=== PATIENT | female | born 1955 | race Caucasian/White ===

== ENCOUNTER 2017-11-27 11:18 | Emergency (ER) | payer OTHER ==
[~2017-11-27] VITALS: Ht 167.6 cm; Wt 62.6 kg
[~2017-11-27 11:18] MED LIST: METHPOW77
[2017-11-27 11:24] VITALS: BP 134/87
[2017-11-27] MEDS ORDERED: KETOROLAC TROMETH 60MG/2ML VIAL IM ONE (12:00)
== END 2017-11-27 13:12 | disposition home or self-care (01) ==
LOC: ER 11:18
DX: M50.30 Other cervical disc degeneration, unspecified cervical region (principal); M19.90 Unspecified osteoarthritis, unspecified site; E07.89 Other specified disorders of thyroid; Z88.6 Allergy status to analgesic agent
CPT/HCPCS: 72040; 96372; 99284; J1885

== ENCOUNTER 2019-04-08 14:08 | Emergency (ER) | payer OTHER ==
[~2019-04-08] VITALS: Ht 167.6 cm; Wt 59.0 kg
[2019-04-08 15:07] VITALS: BP 118/76
[2019-04-08] MEDS ORDERED: KETOROLAC TROMETH 60MG/2ML VIAL IM ONE (15:45)
[2019-04-08] MEDS ORDERED: methylPREDNISolone SOD SUCC 125 MG/2 ML VL IM ONE (15:45)
== END 2019-04-08 16:25 | disposition home or self-care (01) ==
LOC: ER 14:08
DX: M25.531 Pain in right wrist (principal); M79.671 Pain in right foot; M06.9 Rheumatoid arthritis, unspecified; Z88.6 Allergy status to analgesic agent
CPT/HCPCS: 96372; 99283; J1885; J2930

== ENCOUNTER 2020-10-28 21:26 | Emergency (ER) | payer OTHER ==
[2020-10-28 22:34] LABS: Basophils # (auto) 0.1 10 ^3/uL (0-0.2); Basophils % (auto) 1.4 % (0.0-2.0); Eosinophils # (auto) 0.1 10 ^3/uL (0-0.8); Eosinophils % (auto) 2.5 % (0.0-7.0); Hematocrit 38.9 % (36.0-46.0); Hemoglobin 13.2 g/dL (12.2-16.2); Lymphocytes # (auto) 2.1 10 ^3/uL (0.4-5.4); Lymphocytes % (auto) 36.3 % (10.0-50.0); Mean Corpuscular Hemoglobin 32.4 pg (28.0-32.0); Mean Corpuscular Hgb Conc. 33.9 g/dL (32.0-36.0); Mean Corpuscular Volume 95.5 fL (80.0-100.0); Monocytes % (auto) 16.7 % (0.0-12.0); Neutrophils # (auto) 2.5 10 ^3/uL (1.6-8.6); Neutrophils % (auto) 43.1 % (37.0-80.0); Nucleated Red Blood Cells % 0.1 %; Red Blood Cells 4.08 10^6/uL (4.0-5.20); Red Cell Distribution Width 15.1 % (11.8-14.3); White Blood Cell 5.8 10^3/uL (4.4-10.8)
[2020-10-28 22:54] LABS: Albumin 3.1 g/dL (3.4-5.0); Calcium 10.1 mg/dL (8.5-10.1); Potassium 4.4 mmol/L (3.5-5.1)
[2020-10-28 22:57] LABS: BUN/Creatinine Ratio 20.8; Bilirubin, Total 0.4 mg/dL (0.2-1.0); Total Protein 6.4 g/dL (6.4-8.2)
[2020-10-28] MEDS ORDERED: HYDROcodone-ACET 5/325MG TAB PO ONE (23:00)
[2020-10-28] MEDS ORDERED: ONDANSETRON ODT 4 MG TAB PO ONE (23:00)
[2020-10-29 00:24] LABS: Urine Bacteria NONE SEEN /hpf (None Seen); Urine Blood 3+ /uL (Negative); Urine Specific Gravity 1.014 (1.001-1.035); Urine WBC 102 /hpf (0 - 5)
[2020-10-29] MEDS ORDERED: CEPHALEXIN 250 MG CAP PO ONE (01:00)
[2020-10-29 03:15] VITALS: BP 112/66
== END 2020-10-29 04:15 | disposition home or self-care (01) ==
LOC: ER 21:28
DX: N13.2 Hydronephrosis with renal and ureteral calculous obstruction (principal); Z88.5 Allergy status to narcotic agent; Z79.899 Other long term (current) drug therapy; Z90.89 Acquired absence of other organs
CPT/HCPCS: 36415; 74176; 80053; 81001; 82150; 83690; 85025; 99284; Q0162

== ENCOUNTER → 2020-10-29 | Emergency (ER) | payer OTHER | END | disposition left against medical advice (07) | LOC: ER 14:14 | DX: M54.9 Dorsalgia, unspecified (principal); Z53.21 Procedure and treatment not carried out due to patient leaving prior to being seen by health care provider ==

== ENCOUNTER 2021-07-21 11:27 | Inpatient (IN) | payer OTHER, MEDICARE ==
[~2021-07-21] VITALS: Ht 167.6 cm; Wt 60.3 kg
[2021-07-21 13:49] LABS: Basophils # (auto) 0.1 10 ^3/uL (0-0.2); Basophils % (auto) 0.7 % (0.0-2.0); Eosinophils # (auto) 0 10 ^3/uL (0-0.8); Eosinophils % (auto) 0.6 % (0.0-7.0); Hematocrit 37.9 % (36.0-46.0); Lymphocytes # (auto) 1.4 10 ^3/uL (0.4-5.4); Mean Corpuscular Hemoglobin 33.9 pg (28.0-32.0); Mean Corpuscular Hgb Conc. 34.4 g/dL (32.0-36.0); Mean Corpuscular Volume 98.7 fL (80.0-100.0); Monocytes # (auto) 0.8 10 ^3/uL (0-1.3); Monocytes % (auto) 10.8 % (0.0-12.0); Neutrophils # (auto) 5.4 10 ^3/uL (1.6-8.6); Neutrophils % (auto) 69.9 % (37.0-80.0); Nucleated Red Blood Cells % 0.2 %; Red Blood Cells 3.84 10^6/uL (4.0-5.20); Red Cell Distribution Width 15.9 % (11.8-14.3); White Blood Cell 7.8 10^3/uL (4.4-10.8)
[2021-07-21 14:02] LABS: Albumin 3.4 g/dL (3.4-5.0); Calcium 10.2 mg/dL (8.5-10.1); Magnesium 2.2 mg/dL (1.6-2.6); Potassium 4.5 mmol/L (3.5-5.1)
[2021-07-21 14:04] LABS: INR 1.04 (0.9-1.15); Partial Thromboplastin Time 24.4 sec (23.6-33.0)
[2021-07-21 14:07] LABS: Bilirubin, Total 0.7 mg/dL (0.2-1.0); Total Protein 6.4 g/dL (6.4-8.2)
[2021-07-21] MEDS ORDERED: IOHEXOL 350 MG/ML 100ML IJ ONE (20:54)
[2021-07-21] MEDS ORDERED: ENOXAPARIN SOD 100 MG/1 ML SYRINGE SC ONE (22:15)
[2021-07-21] MEDS ORDERED: ONDANSETRON HCL 4 MG/2 ML VIAL IV PRN (22:45)
[2021-07-21] MEDS ORDERED: TEMAZEPAM 15 MG CAP PO PRN (22:45)
[2021-07-21] MEDS ORDERED: NITROGLYCERIN 0.4 MG SL TAB SL PRN (22:45)
[2021-07-21] MEDS ORDERED: ACETAMINOPHEN 325 MG TAB PO PRN (22:45)
[2021-07-21] MEDS ORDERED: TOFA5TAB OR (22:54)
[2021-07-21] MEDS ORDERED: CHOL20007 PO (22:54)
[2021-07-21] MEDS ORDERED: METH2.5T PO (22:54)
[2021-07-21] MEDS ORDERED: FOLI5CAP PO (22:54)
[2021-07-21] MEDS ORDERED: [UNRECOGNIZED DRUG - CODE] PO (22:54)
[2021-07-21] MEDS ORDERED: LEVO50TA7 PO (22:54)
[2021-07-21] MEDS ORDERED: MILN50TA PO (22:54)
[2021-07-21] MEDS ORDERED: HYDR50CA PO (22:54)
[2021-07-21] MEDS ORDERED: HYDR-4902 PO (22:54)
[2021-07-22 05:41] LABS: Basophils # (auto) 0.1 10 ^3/uL (0-0.2); Basophils % (auto) 0.8 % (0.0-2.0); Eosinophils # (auto) 0.1 10 ^3/uL (0-0.8); Eosinophils % (auto) 0.7 % (0.0-7.0); Hematocrit 37.5 % (36.0-46.0); Hemoglobin 12.7 g/dL (12.2-16.2); Lymphocytes # (auto) 1.1 10 ^3/uL (0.4-5.4); Lymphocytes % (auto) 12.9 % (10.0-50.0); Mean Corpuscular Hemoglobin 33.2 pg (28.0-32.0); Mean Corpuscular Hgb Conc. 33.9 g/dL (32.0-36.0); Mean Corpuscular Volume 98.1 fL (80.0-100.0); Monocytes # (auto) 1.1 10 ^3/uL (0-1.3); Monocytes % (auto) 13.5 % (0.0-12.0); Neutrophils # (auto) 6.1 10 ^3/uL (1.6-8.6); Neutrophils % (auto) 72.1 % (37.0-80.0); Red Blood Cells 3.82 10^6/uL (4.0-5.20); Red Cell Distribution Width 15.8 % (11.8-14.3); White Blood Cell 8.5 10^3/uL (4.4-10.8)
[2021-07-22 06:30] LABS: Calcium 9.9 mg/dL (8.5-10.1); Potassium 4.6 mmol/L (3.5-5.1)
[2021-07-22] MEDS ORDERED: LEVOTHYROXINE SODIUM 25 MCG TAB ONE (08:18)
[2021-07-22] MEDS: LEVOTHYROXINE SODIUM 50 MCG TAB PO SCH (08:19)
[2021-07-22 09:00] VITALS: BP 119/83
[2021-07-22] MEDS: ENOXAPARIN SOD 100 MG/1 ML SYRINGE SC SCH ×2 (12:29→22:03)
[2021-07-22 13:00] VITALS: BP 151/85
[2021-07-22] MEDS ORDERED: hydrOXYzine 25 MG TAB or CAP PO PRN (16:15)
[2021-07-22 17:06] VITALS: BP 152/85
[2021-07-22] MEDS: HYDROcodone-ACET 5/325MG TAB PO PRN (17:26)
[2021-07-22 23:01] VITALS: BP 140/80
[2021-07-23 05:32] VITALS: BP 125/74
[2021-07-23 05:43] LABS: Basophils # (auto) 0.1 10 ^3/uL (0-0.2); Basophils % (auto) 0.8 % (0.0-2.0); Eosinophils # (auto) 0.1 10 ^3/uL (0-0.8); Hematocrit 35.7 % (36.0-46.0); Hemoglobin 12.3 g/dL (12.2-16.2); Lymphocytes # (auto) 1.2 10 ^3/uL (0.4-5.4); Lymphocytes % (auto) 17.4 % (10.0-50.0); Mean Corpuscular Hemoglobin 33.8 pg (28.0-32.0); Mean Corpuscular Hgb Conc. 34.4 g/dL (32.0-36.0); Mean Corpuscular Volume 98.1 fL (80.0-100.0); Monocytes # (auto) 1.1 10 ^3/uL (0-1.3); Monocytes % (auto) 15.5 % (0.0-12.0); Neutrophils # (auto) 4.5 10 ^3/uL (1.6-8.6); Neutrophils % (auto) 65.3 % (37.0-80.0); Nucleated Red Blood Cells % 0.1 %; Red Blood Cells 3.63 10^6/uL (4.0-5.20); Red Cell Distribution Width 16.1 % (11.8-14.3); White Blood Cell 6.8 10^3/uL (4.4-10.8)
[2021-07-23] MEDS: LEVOTHYROXINE SODIUM 50 MCG TAB PO SCH (05:48)
[2021-07-23 05:56] LABS: BUN/Creatinine Ratio 16.5; Potassium 4.4 mmol/L (3.5-5.1)
[2021-07-23 06:01] LABS: Calcium 10.1 mg/dL (8.5-10.1)
[2021-07-23] MEDS ORDERED: APIX5TAB PO (09:38)
[2021-07-23] MEDS ORDERED: FOLIC ACID 1 MG TAB PO SCH (10:00)
[2021-07-23] MEDS ORDERED: CHOLECALCIFEROL (VITD3) 2,000 UNIT CAP/TAB PO SCH (10:00)
[2021-07-23] MEDS: ENOXAPARIN SOD 100 MG/1 ML SYRINGE SC SCH (11:09)
[2021-07-23] MEDS: HYDROcodone-ACET 5/325MG TAB PO PRN (11:15)
== END 2021-07-23 13:10 | disposition home or self-care (01) | DRG 176 ==
LOC: ER 11:29 → TELE 22:37 → TELE-CENTR 07-22 08:34
PROVIDERS: ADMIT Nurse Practitioner; ATTEND Internal Medicine Pulmonary Disease
DX: I26.99 Other pulmonary embolism without acute cor pulmonale (principal); I82.431 Acute embolism and thrombosis of right popliteal vein; J98.11 Atelectasis; N20.0 Calculus of kidney; M19.90 Unspecified osteoarthritis, unspecified site; R06.03 Acute respiratory distress; Z20.822 Contact with and (suspected) exposure to COVID-19; Z87.442 Personal history of urinary calculi; Z88.5 Allergy status to narcotic agent
CPT/HCPCS: 36415; 71046; 71275; 80048; 80053; 83735; 83880; 84484; 85025; 85379; 85610; 85730; 93306; 93970; 96372; G0378

== ENCOUNTER 2021-11-05 13:39 | Emergency (ER) | payer OTHER, MEDICARE ==
[~2021-11-05] VITALS: Ht 162.6 cm; Wt 58.3 kg
[~2021-11-05 13:39] MED LIST changes: +APIX5TAB PO; +CHOL20007 PO; +FOLI5CAP PO; +HYDR-4902 PO; +HYDR50CA PO; +LEVO50TA7 PO; +METH2.5T PO; +MILN50TA PO; +TOFA5TAB OR; +[UNRECOGNIZED DRUG - CODE] PO
[2021-11-05 17:46] VITALS: BP 112/90
[2021-11-05] MEDS ORDERED: TRIA0.02 TOP (18:54)
== END 2021-11-05 19:06 | disposition home or self-care (01) ==
LOC: ER 13:39
DX: S50.812A Abrasion of left forearm, initial encounter (principal); S50.811A Abrasion of right forearm, initial encounter; R21 Rash and other nonspecific skin eruption; M19.90 Unspecified osteoarthritis, unspecified site; Z90.89 Acquired absence of other organs; Z88.6 Allergy status to analgesic agent; Z79.899 Other long term (current) drug therapy; X58.XXXA Exposure to other specified factors, initial encounter; Y93.89 Activity, other specified; Y92.89 Other specified places as the place of occurrence of the external cause; Y99.8 Other external cause status

== ENCOUNTER 2022-11-24 15:58 | Emergency (ER) | payer OTHER, MEDICARE ==
[~2022-11-24] VITALS: Ht 167.6 cm; Wt 55.7 kg
[~2022-11-24 15:58] MED LIST changes: -APIX5TAB PO; +CLIN-203 PO; -METHPOW77; +SACC250C PO; -TOFA5TAB OR; +TOFA5TAB PO; +TRAM200T36 PO; +WARF-111 PO; -[UNRECOGNIZED DRUG - CODE] PO
[2022-11-24 18:34] VITALS: BP 138/84; PULSE 99; RESP 16; TEMP 98.1; O2SAT 97
[2022-11-24] MEDS ORDERED: CEPH500C PO (18:40)
[2022-11-24] MEDS ORDERED: CLIN300C70 PO (18:40)
== END 2022-11-24 18:52 | disposition home or self-care (01) ==
LOC: ER 15:58
DX: L03.114 Cellulitis of left upper limb (principal); L03.113 Cellulitis of right upper limb; L03.116 Cellulitis of left lower limb; M19.90 Unspecified osteoarthritis, unspecified site; Z87.442 Personal history of urinary calculi; Z90.89 Acquired absence of other organs; Z88.6 Allergy status to analgesic agent; Z79.1 Long term (current) use of non-steroidal anti-inflammatories (NSAID); Z79.899 Other long term (current) drug therapy

== ENCOUNTER 2024-05-18 00:53 | Emergency (ER) | payer MEDICARE ==
[~2024-05-18] VITALS: Ht 167.6 cm; Wt 56.8 kg
[~2024-05-18 00:53] MED LIST changes: +CEPH500C PO; +CLIN1CAP70 PO
[2024-05-18 02:16] LABS: Urine Bacteria None Seen /hpf (None Seen)
[2024-05-18 02:48] LABS: Urine Blood Negative /uL (Negative); Urine Clarity Clear (Clear); Urine Color Yellow (Yellow); Urine Protein, UAD Negative (Negative); Urine Specific Gravity 1.018 (1.001-1.035); Urine Squamous Epithelial Cell FEW /hpf (<5); Urine Urobilinogen Normal (Negative); Urine WBC 8 /HPF (0-5)
--- NOTE | 2024-05-18 02:50 | DVH ---
Exam: CT CT AB PEL WO CON-NO ORAL OR IV History: Flank pain Comparison Study: None available at time of dictation. TECHNIQUE: Multidetector CT of the abdomen was performed from lung bases to pubic symphysis. Imaging was performed without IV contrast. Axial, coronal and sagittal multiplanar reformats were obtained fr om the axial data set by the technologist. Radiation optimization: All CT scans at this facility use at least one of these dose optimization luly hniques: automated exposure control mA and/or kV adjustment per patient size (includes targeted exam s where dose is matched to clinical indication) or iterative reconstruction. Radiation Dose Information: CT Dose: CTDI volume is 5.36 mGy. Dose-length product is 258.01 mGy*cm FINDINGS: Evaluation of solid organs is limited due to lack of intravenous contrast use. Findings: Imaged portions of the lung bases The liver, gallbladder, spleen, pancreas and adrenal glands appear there are multiple bilateral renal calculi measuring up to 1.1 cm on the left. There is no evidence of hydronephrosis. No evidence of h ydroureter. Multiple additional calcifications likely represent vascular calcifications. No evidence of bowel obstruction. Large amount of intracolonic stool. No free fluid, free air, or ad enopathy. Postsurgical changes of the spine from L3 through S5. IMPRESSION: 1. No acute abdominal or pelvic finding. 2. Multiple nonobstructing bilateral renal calculi. No hydronephrosis.
--- NOTE | 2024-05-18 03:10 | ED.PDOC ---
General HPI Comments 68-year-old female, with a history for arthritis and kidney stones, presents with complaint of bilateral flank pain an dysuria, with secondary difficulty urinating, today. Patient is a poor historian and endorses on unprovoked and sudden onset of symptoms 4 hours prior to ED arrival. She comments on pain feeling similar to when she was treated for UTI week ago. Reports no recent injuries, strenuous activities, or other relevant and pertinent information at time of initial assessment. Patient denies having any nausea, vomiting, hematuria, fever, chills, or other associated symptoms or modifiers at this time. Chief Complaint: Flank Pain Time Seen by MD: 02:05 Primary Care Provider: PETEY Reviewed notes: Nurses Notes, Medications, Allergies Allergies: Coded Allergies: Morphine (Verified Allergy, Mild, 10/17/10) Home Meds Active Scripts Clindamycin Hcl (Clindamycin Hcl) 300 Mg Cap, 1 CAP PO TID for 7 Days, #21 CAP 0 Refills Prov:STEFANIE BURGOS 11/24/22 Cephalexin Monohydrate (Cephalexin) 500 Mg Cap, 1 CAP PO BID for 7 Days, #14 CAP 0 Refills Prov:STEFANIE BURGOS 11/24/22 Clindamycin HCl (Clindamycin Hydrochloride) 300 Mg Cap, 300 MG PO TID for 10 Days, #30 CAP Prov:YOU CASTLE MD 03/29/22 Warfarin Sodium (Warfarin Sodium) 3 Mg Tab, 3 MG PO DAILY for 10 Days, #10 TAB Prov:YOU CASTLE MD 03/29/22 Yeast (S. Boulardii)(S. Cerevi (Florastor) 250 Mg Cap, 250 MG PO DAILY for 30 Days, #30 CAP Prov:YOU CASTLE MD 03/29/22 Reported Medications Folic Acid (Folic Acid) 5 Mg Cap, 5 MG PO DAILY, CAP 07/21/21 Cholecalciferol (VITAMIN D3) 2,000 Unit Tab, 1 TAB PO DAILY, #30 TAB 5 Refills 07/21/21 Hydroxyzine Pamoate (Vistaril) 50 Mg Cap, 1 CAP PO BID for 30 Days, MG 07/21/21 Milnacipran Hydrochloride (Savella) 50 Mg Tab, 100 MG PO DAILY, TAB 07/21/21 Levothyroxine Sodium (Levothyroxine Sodium) 50 Mcg Tab, 50 MCG PO QAM for 30 Days, MCG 07/21/21 Tofacitinib Citrate (XELJANZ) 5 Mg Tab, 10 MG PO DAILY, TAB 07/21/21 Hydrocodone-Acetaminophen (Hydrocodone Bitartrate/AC 5-325 mg) 1 Tab Tab, 1 TAB PO DAILY, TAB 07/21/21 Tramadol Hcl (TRAMADOL HCL ER) 200 Mg Tab, 200 MG PO DAILY, TAB 07/21/21 Methotrexate (Methotrexate) 2.5 Mg Tab, 6 TAB PO QWEEKLY, MG 07/21/21 Information Source: Patient Mode of Arrival: Ambulatory Severity: Moderate Timing: Weeks Duration: Since onset Prehospital treatment: None Onset: Spontaneous Symptoms: Dysuria, Other (Bilateral flank pain) History of: Kidney stone Location: (R) Flank, (L)Flank Modifying factors: None associated signs and symptoms: Flank Pain, Dysuria Past Medical History PAST MEDICAL HISTORY: Arthritis, Kidney Stones, Thyroid Surgical History: Thyroidectomy 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 Family History Family History: Unknown Social History Smoker: Non-Smoker Alcohol: Occasionally Drugs: Denies Drug Use Lives In: Home Constitutional: denies: chills, diaphoresis, fatigue, fever, malaise, sweats, weakness, others EENTM: denies: blurred vision, double vision, ear bleeding, ear discharge, ear drainage, ear pain, ear ringing, eye pain, eye redness, hearing loss, mouth pain, mouth swelling, nasal discharge, nose bleeding, nose congestion, nose pain, photophobia, tearing, throat pain, throat swelling, voice changes, others Respiratory: denies: cough, hemoptysis, orthopnea, SOB at rest, shortness of breath, SOB with excertion, stridor, wheezing, others Cardiovascular: denies: chest pain, dizzy spells, diaphoresis, Dyspnea on exertion, edema, irregular heart beat, left arm pain, lightheadedness, palpitations, PND, syncope, others Gastrointestinal: denies: abdomen distended, abdominal pain, blood streaked bowels, constipated, diarrhea, dysphagia, difficulty swallowing, hematemesis, melena, nausea, poor appetite, poor fluid intake, rectal bleeding, rectal pain, vomiting, others Genitourinary: reports: dysuria, flank pain (Bilateral) Neurological: denies: dizziness, fainting, headache, left sided numbness, left sided weakness, numbness, paresthesia, pre-existing deficit, right sided numbn ess, right sided weakness, seizure, speech problems, tingling, tremors, weakness, others Musculoskeletal: denies: back pain, gout, joint pain, joint swelling, muscle pain, muscle stiffness, neck pain, others Integumetry: denies: bruises, change in color, change in hair/nails, dryness, laceration, lesions, lumps, rash, wounds, others Allergic/Immunocompromised: denies: Difficulty Healing, Frequent Infections, Hives, Itching, others Hematologic/Lymphatic: denies: anemia, blood clots, easy bleeding, easy bruising, swollen glands, others All Other Systems: Reviewed and Negative (Negative unless otherwise stated above or in HPI) Physical Exam General Appearance: No Apparent Distress, Normal HEENT: Normal ENT Inspection, Pharynx Normal, TMs Normal Neck: Full Range of Motion, Non-Tender, Normal, Normal Inspection Respiratory: Chest Non-Tender, Lungs Clear, No Accessory Muscle Use, No Respiratory Distress, Normal Breath Sounds Cardiovascular: No Edema, No JVD, No Murmur, No Gallop, Normal Peripheral Pulses, Regular Rate/Rhythm Breast Exam: Deferred Gastrointestinal: No Organomegaly, Non Tender, No Pulsatile Mass, Normal Bowel Sounds, Soft Genitalia: Deferred Pelvic: Deferred Rectal: Deferred Extremities: No calf tenderness, Normal capillary refill, Normal inspection, Normal range of motion, Non-tender, No pedal edema Musculoskeletal : Location: Bilateral Extremity Location: Other (CVA) Apperance: Normal, Tenderness: Mild Neurologic: Alert, harpsichord maker II-XII nml as Tested, No Motor Deficits, Normal Affect, Normal Mood, No Sensory Deficits Cerebellar Function: Normal Reflexes: Normal Skin: Dry, Normal Color, Warm Lymphatic: No Adenopathy Was a procedure done? Was a procedure done?: No Differential Diagnosis Kidney stone (Female): Musculoskeletal pain, Ovarian torsion, Pyelonephritis, Strain, Other (Nephrolithiasis) Urinary Problem (Female): Pyelonephritis, UTI, Other (Nephrolithiasis) X-Ray, Labs, Meds, VS Vital Signs Date Time Temp Pulse Resp B/P (MAP) Pulse Ox O2 Delivery O2 Flow Rate FiO2 05/18/24 00:58 98.8 106 18 164/93 (116) 99 Lab Test 05/18/24 01:00 Range/Units Urine Color Yellow Yellow Urine Clarity Clear Clear Urine pH 6.0 5.0-9.0 Urine Specific [place] 1.018 1.001-1.035 Urine Protein Negative Negative Urine Ketones Negative Negative Urine Blood Negative Negative /uL Urine Nitrite Negative Negative Urine Bilirubin Negative Negative Urine Urobilinogen Normal Negative mg/dL Urine Leukocyte Esterase 1+ Negative /uL Urine RBC 5 0 - 4 /hpf Urine Microscopic WBC 8 H 0-5 /HPF Urine Squamous Epithelial Cells Few <5 /hpf Urine Bacteria None seen None Seen /hpf Urine Glucose Normal Normal mg/dL [place] [id number] Ph: [phone] DIAGNOSTIC IMAGING Diagnostic Imaging Report : [id number] Signed PATIENT: GABRIELE VELIZ ACCT: [id number] UNIT: [id number] : 1955 LOC: ER ROOM / BED: / AGE / SEX: 68 / F ADM STATUS: REG ER SERVICE 9 ORDERING PHYSICIAN: LATRICIA MIRANDA PROCEDURE(s): ABPL - CT AB PEL WO CON-NO ORAL OR IV REASON: Flank pain ORDER NUMBER(s): [id number], ACCESSION NUMBER(s): [id number] Exam: CT CT AB PEL WO CON-NO ORAL OR IV History: Flank pain Comparison Study: None available at time of dictation. TECHNIQUE: Multidetector CT of the abdomen was performed from lung bases to pubic symphysis. Imaging was performed without IV contrast. Axial, coronal and sagittal multiplanar reformats were obtained from the axial data set by the technologist. Radiation optimization: All CT scans at this facility use at least one of these dose optimization techniques: automated exposure control mA and/or kV adjustment per patient size (includes targeted exams where dose is matched to clinical indication) or iterative reconstruction. Radiation Dose Information: CT Dose: CTDI volume is 5.36 mGy. Dose-length product is 258.01 mGy*cm FINDINGS: Evaluation of solid organs is limited due to lack of intravenous contrast use. Findings: Imaged portions of the lung bases The liver, gallbladder, spleen, pancreas and adrenal glands appear there are multiple bilateral renal calculi measuring up to 1.1 cm on the left. There is no evidence of hydronephrosis. No evidence of hydroureter. Multiple additional calcifications likely represent vascular calcifications. No evidence of bowel obstruction. Large amount of intracolonic stool. No free fluid, free air, or adenopathy. Postsurgical changes of the spine from L3 through S5. IMPRESSION: 1. No acute abdominal or pelvic finding. 2. Multiple nonobstructing bilateral renal calculi. No hydronephrosis. ATED BY: GHANSHYAM PUGH MD DICTATED DATE/TIME: 05/18/24249 SIGNED BY: GHANSHYAM PUGH MD SIGNED DATE/TIME: 05/18/24249 CC: X-Ray, Labs, Meds, VS Comment Imaging: X-rays and CT scans were reviewed and interpreted by this provider, imaging shows multiple nonobstructing renal calculi. Pending radiology review. Laboratory: Labs reviewed and interpreted by this provider. No significant ab normalities noted. Patient has prior medical visits reviewed. Med reconciliation performed Vital signs reviewed Time of 1ST Reevaluation: 02:35 Reevaluation 1ST: Unchanged Patient Education/Counseling: Diagnosis, Treatment, Need For Follow Up (Patient advised to follow-up in the emergency room in the next 24 to 48 hours if symptoms do not improve. Advised follow-up with PCP in the next 3 to 5 days. Patient verbalized understanding. ) Family Education/Counseling: No Family Present Additional Information Review of the following visits: 05/18/2024, 11/24/2022, 03/22/2022 Ordered the following tests: CT abdomen and pelvis without contrast, urinalysis Concur with interpretations from other providers input for the following test: CT abdomen and pelvis without contrast Departure 1 Departure Time of Disposition: 03:12 Impression: Primary Impression: Bilateral kidney stones Additional Impression: Dysuria Disposition: 01 HOME / SELF CARE / HOMELESS Condition: Fair e-Prescriptions Nitrofurantoin Monohydrate Mac (Macrobid) 100 Mg Cap 100 MG PO BID for 5 Days, #10 CAP Prov: LATRICIA MIRANDA 05/18/24 Discharged With: Self Critical Care Note Critical Care Time?: No Stability Stability form required: No Heart Score Heart Score: Heart Score Response (Comments) Value History N/A 0 EKG N/A 0 Age N/A 0 Risk Factors N/A 0 Troponin N/A 0 Total 0 I personally scribed for LATRICIA MIRANDA ([email or web address]) on 05/18/24 at 03:10. Electronically submitted by Usman Shah ([email or web address]). LATRICIA MIRANDA May 18, 2024 03:10
[2024-05-18] MEDS ORDERED: NITR-87 PO (03:13)
[2024-05-18 04:45] VITALS: PULSE 89; RESP 99; TEMP 98.4; O2SAT 99
[2024-05-18] MEDS: KETOROLAC TROMETH 60MG/2ML VIAL IM ONE (04:46)
[2024-05-18 04:58] VITALS: BP 148/86; PULSE 83; RESP 14; O2SAT 98
== END 2024-05-18 04:57 | disposition home or self-care (01) ==
LOC: ER 00:53
DX: N20.0 Calculus of kidney (principal); R30.0 Dysuria; Z90.89 Acquired absence of other organs; Z88.5 Allergy status to narcotic agent; Z79.01 Long term (current) use of anticoagulants; Z79.890 Hormone replacement therapy; Z79.899 Other long term (current) drug therapy
CPT/HCPCS: 74176; 81001; 96372; 99285; J1885

== ENCOUNTER 2024-06-05 11:55 | Emergency (ER) | payer MEDICARE ==
[~2024-06-05] VITALS: Ht 167.6 cm; Wt 56.9 kg
[~2024-06-05 11:55] MED LIST changes: +NITR-87 PO
[2024-06-05] MEDS ORDERED: ONDANSETRON HCL 4 MG/2 ML VIAL ONE (12:22)
[2024-06-05 12:27] LABS: Urine Bacteria None Seen /hpf (None Seen)
[2024-06-05 12:47] LABS: Urine Blood Negative /uL (Negative); Urine Clarity Clear (Clear); Urine Color Yellow (Yellow); Urine Protein, UAD Negative (Negative); Urine Specific Gravity 1.013 (1.001-1.035); Urine Squamous Epithelial Cell FEW /hpf (<5); Urine Urobilinogen Normal (Negative); Urine WBC 2 /HPF (0-5); Urine pH 6.5 (5.0-9.0)
[2024-06-05] MEDS: MORPHINE SULFATE 4 MG/ML SYR/VIAL IV ONE (13:00)
[2024-06-05] MEDS: ONDANSETRON HCL 4 MG/2 ML VIAL IV ONE (13:20)
[2024-06-05 13:35] LABS: Basophils # (auto) 0.1 10 ^3/uL (0-0.2); Basophils % (auto) 0.8 % (0.0-2.0); Eosinophils # (auto) 0.1 10 ^3/uL (0-0.8); Eosinophils % (auto) 0.7 % (0.0-7.0); Hematocrit 41.7 % (36.0-46.0); Hemoglobin 14.2 g/dL (12.2-16.2); Lymphocytes # (auto) 2.1 10 ^3/uL (0.4-5.4); Lymphocytes % (auto) 26.6 % (10.0-50.0); Mean Corpuscular Hemoglobin 32.7 pg (28.0-32.0); Monocytes # (auto) 0.7 10 ^3/uL (0-1.3); Monocytes % (auto) 9.2 % (0.0-12.0); Neutrophils # (auto) 4.9 10 ^3/uL (1.6-8.6); Neutrophils % (auto) 62.7 % (37.0-80.0); Platelet Count (auto) 350 10^3/uL (140-450); Red Blood Cells 4.34 10^6/uL (4.0-5.20); Red Cell Distribution Width 14.1 % (11.8-14.3); White Blood Cell 7.8 10^3/uL (4.4-10.8)
--- NOTE | 2024-06-05 13:47 | DVH ---
CT CT AB PEL WO CON-NO ORAL OR IV INDICATION: l flank pain EXAM DATE: 06/05/2024 01:11 PM COMPARISON: CT CT AB PEL WO CON-NO ORAL OR IV on DOS: 05/18/24, [facility] on DOS: 07/22/21 RADIATION DOSE: CTDIvol: 8.56 mGy, DLP: 416.14 mGy*cm PROCEDURE: Helical CT images were obtained of the abdomen and pelvis without IV contrast Sagittal and coronal reconstructions are provided. ORAL CONTRAST: None. ADDITIONAL IMAGES / REFORMATS: None All C T scans at this medical facility are performed using dose modulation techniques as appropriate to a p erformed exam including the following: Automated exposure control was utilized; adjustment of the MA and/or KV according to patient size; and use of iterative reconstruction technique. FINDINGS: LUNG BASE: Normal. LIVER: Normal. GALLBLADDER AND BILIARY TREE: No calcified gallstones. Normal caliber wall. No intra- or extrahepatic biliary ductal dilation. PANCREAS: Normal. SPLEEN: Normal. BOWEL: Mild colonic diverticulosis. Normal appendix. ADRENALS: Normal. KIDNEYS AND URETER: Bilateral nonobstructive kidney stones. BLADDER: Normal. REPRODUCTIVE ORGANS: Normal. LYMPH NODES:No lymphadenopathy. PERITONEUM: No ascites or free air. No other fluid collection. VESSELS: Scattered atherosclerotic calcifications are noted. RETROPERITONEUM: Normal. ABDOMINAL WALL: Normal. BONES: Scattered osseous degenerative changes are noted. IMPRESSION: No acute intraabdominal abnormality. Mild colonic diverticulosis. Bilateral nonobstructive kidney stones..
[2024-06-05 13:55] LABS: Alanine Aminotransferase 32 U/L (7-40); Albumin 4.8 g/dL (3.2-4.8); Alkaline Phosphatase 60 U/L (46-116); Anion Gap 8 (5-15); Aspartate Aminotransferase 26 U/L (13-40); BUN/Creatinine Ratio 17.9 (10.0-20.0); Bilirubin, Total 0.4 mg/dL (0.2-1.0); Blood Urea Nitrogen 19 mg/dL (9-23); Carbon Dioxide 28 mmol/L (20-31); Chloride 104 mmol/L (98-107); Glucose 74 mg/dL (74-106); Potassium 4.8 mmol/L (3.5-5.1); Sodium 140 mmol/L (136-145); Total Protein 6.6 g/dL (5.7-8.2)
[2024-06-05 13:58] LABS: Calcium 10.6 mg/dL (8.7-10.4); Lipase 75 U/L (12-53)
--- NOTE | 2024-06-05 17:12 | ED.PDOC ---
General HPI Comments 68y F who presents to the ED for chief complaint of L flank pain. Pt states she has been having L sided flank pain since 10 AM this morning. Pt states the pain is sharp in nature, rating the pain 6/10, radiating to the L groin area, with no noted exacerbating or relieving factors. Pt has associated nausea, dysuria and chills but otherwise denies vomiting, dysuria, hematuria, fever, cough, headache or dizziness. Pt states she has kidney stones in the last on the L side and states it feels the same now. Pt states she did have dental work done a few days ago and states she was placed on amoxicillin, which she finished 2 days ago. Pt has noted stable vitals with temp of 98.7 F, heart rate of 95, BP of 125/77 with all other vitals in normal range. Pt otherwise denies any other symptoms at this time. Chief Complaint: Flank Pain Time Seen by MD: 17:09 Primary Care Provider: IMELDA CANALES Reviewed notes: Medications, Allergies Allergies: Coded Allergies: Morphine (Verified Allergy, Mild, 10/17/10) Home Meds Active Scripts Nitrofurantoin Monohydrate Mac (Macrobid) 100 Mg Cap, 100 MG PO BID for 5 Days, #10 CAP Prov:LATRICIA MIRANDA 05/18/24 Clindamycin Hcl (Clindamycin Hcl) 300 Mg Cap, 1 CAP PO TID for 7 Days, #21 CAP 0 Refills Prov:STEFANIE BURGOS 11/24/22 Cephalexin Monohydrate (Cephalexin) 500 Mg Cap, 1 CAP PO BID for 7 Days, #14 CAP 0 Refills Prov:STEFANIE BURGOS 11/24/22 Clindamycin HCl (Clindamycin Hydrochloride) 300 Mg Cap, 300 MG PO TID for 10 Days, #30 CAP Prov:YOU CASTLE MD 03/29/22 Warfarin Sodium (Warfarin Sodium) 3 Mg Tab, 3 MG PO DAILY for 10 Days, #10 TAB Prov:YOU CASTLE MD 03/29/22 Yeast (S. Boulardii)(S. Cerevi (Florastor) 250 Mg Cap, 250 MG PO DAILY for 30 Days, #30 CAP Prov:YOU CASTLE MD 03/29/22 Reported Medications Folic Acid (Folic Acid) 5 Mg Cap, 5 MG PO DAILY, CAP 07/21/21 Cholecalciferol (VITAMIN D3) 2,000 Unit Tab, 1 TAB PO DAILY, #30 TAB 5 Refills 07/21/21 Hydroxyzine Pamoate (Vistaril) 50 Mg Cap, 1 CAP PO BID for 30 Days, MG 07/21/21 Milnacipran Hydrochloride (Savella) 50 Mg Tab, 100 MG PO DAILY, TAB 07/21/21 Levothyroxine Sodium (Levothyroxine Sodium) 50 Mcg Tab, 50 MCG PO QAM for 30 Days, MCG 07/21/21 Tofacitinib Citrate (XELJANZ) 5 Mg Tab, 10 MG PO DAILY, TAB 07/21/21 Hydrocodone-Acetaminophen (Hydrocodone Bitartrate/AC 5-325 mg) 1 Tab Tab, 1 TAB PO DAILY, TAB 07/21/21 Tramadol Hcl (TRAMADOL HCL ER) 200 Mg Tab, 200 MG PO DAILY, TAB 07/21/21 Methotrexate (Methotrexate) 2.5 Mg Tab, 6 TAB PO QWEEKLY, MG 07/21/21 Information Source: Patient Mode of Arrival: Ambulatory Brought in by: self Past Medical History PAST MEDICAL HISTORY: Arthritis, Kidney Stones, Thyroid Surgical History: Thyroidectomy [employer] History: Denies all [employer] T[employer] Hx Family History Family History: Unknown Social History Smoker: Non-Smoker Alcohol: Occasionally Drugs: Denies Drug Use Lives In: Home Constitutional: reports: chills; denies: diaphoresis, fatigue, fever, malaise, sweats, weakness, others EENTM: denies: blurred vision, double vision, ear bleeding, ear discharge, ear drainage, ear pain, ear ringing, eye pain, eye redness, hearing loss, mouth pain, mouth swelling, nasal discharge, nose bleeding, nose congestion, nose pain, photophobia, tearing, throat pain, throat swelling, voice changes, others Respiratory: denies: cough, hemoptysis, orthopnea, SOB at rest, shortness of breath, SOB with excertion, stridor, wheezing, others Cardiovascular: denies: chest pain, dizzy spells, diaphoresis, Dyspnea on exertion, edema, irregular heart beat, left arm pain, lightheadedness, palpitations, PND, syncope, others Gastrointestinal: reports: abdominal pain, nausea; denies: abdomen distended, blood streaked bowels, constipated, diarrhea, dysphagia, difficulty swallowing, hematemesis, melena, poor appetite, poor fluid intake, rectal bleeding, rectal pain, vomiting, others Genitourinary: reports: flank pain; denies: abnormal vagina bleeding, burning, dyspareunia, dysuria, frequency, hematuria, incontinence, pain, , vagina discharge, urgency, others Neurological: denies: dizziness, fainting, headache, left sided numbness, left sided weakness, numbness, paresthesia, pre-existing deficit, right sided numbness, right sided weakness, seizure, speech problems, tingling, tremors, weakness, others Musculoskeletal: denies: back pain, gout, joint pain, joint swelling, muscle pain, muscle stiffness, neck pain, others Integumetry: denies: bruises, change in color, change in hair/nails, dryness, laceration, lesions, lumps, rash, wounds, others Allergic/Immunocompromised: denies: Difficulty Healing, Frequent Infections, Hives, Itching, others Hematologic/Lymphatic: denies: anemia, blood clots, easy bleeding, easy bruising, swollen glands, others Endocrine: denies: excessive hunger, excessive sweating, excessive thirst, excessive urination, flushing, intolerance to cold, intolerance to heat, unexplained weight gain, unexplained weight loss, others Psychiatric: denies: anxiety, bipolar disorder, depression, hopeless, panic disorder, schizophrenia, sleepless, suicidal, others All Other Systems: Reviewed and Negative Physical Exam General Appearance: No Apparent Distress HEENT: PERRL/EOMI Neck: Full Range of Motion, Normal Inspection Respiratory: Lungs Clear, No Accessory Muscle Use, No Respiratory Distress, Normal Breath Sounds Cardiovascular: No Edema, No JVD, Regular Rate/Rhythm Breast Exam: Deferred Gastrointestinal: LLQ, Soft, Suprapubic (left), Tenderness Genitalia: Deferred Pelvic: Deferred Rectal: Deferred Extremities: Normal inspection, Normal range of motion, Non-tender, No pedal edema Neurologic: Alert (oriented x 4), Normal Affect, Normal Mood, Other (ambulatory. no gross focal deficit.) Cerebellar Function: NOT DONE Reflexes: NOT DONE Skin: Dry, Normal Color, Warm Lymphatic: NOT DONE Was a procedure done? Was a procedure done?: No Differential Diagnosis Kidney stone (Female): DJD, Musculoskeletal pain, Strain, Urolithiasis Urinary Problem (Female): Pyelonephritis, Urinary retention, Urolithiasis, UTI, Other (diverticulitis, colitis, gastroenteritis, bowel obstruction, ileus, constipation, among others) X-Ray, Labs, Meds, VS Vital Signs Date Time Temp Pulse Resp B/P (MAP) Pulse Ox O2 Delivery O2 Flow Rate FiO2 06/05/24 17:00 95 16 125/77 (93) 96 06/05/24 12:58 Room Air* 0 21 06/05/24 12:45 98.7 113 18 136/83 (100) 96 98.7 06/05/24 12:22 98.0 120 16 165/85 (111) 97 Lab Test 06/05/24 14:41 06/05/24 13:09 06/05/24 12:24 Range/Units Troponin I High Sensitivity 9 9 </=34 ng/L White Blood Count 7.8 4.4-10.8 10^3/uL Red Blood Count 4.34 4.0-5.20 10^6/uL Hemoglobin 14.2 12.2-16.2 g/dL Hematocrit 41.7 36.0-46.0 % Mean Corpuscular Volume 96.0 80.0-100.0 fL Mean Corpuscular Hemoglobin 32.7 H 28.0-32.0 pg Mean Corpuscular Hemoglobin Concent 34.0 32.0-36.0 g/dL Red Cell Distribution Width 14.1 11.8-14.3 % Platelet Count 350 140-450 10^3/uL Mean Platelet Volume 8.1 6.9-10.8 fL Neutrophils (%) (Auto) 62.7 37.0-80.0 % Lymphocytes (%) (Auto) 26.6 10.0-50.0 % Monocytes (%) (Auto) 9.2 0.0-12.0 % Eosinophils (%) (Auto) 0.7 0.0-7.0 % Basophils (%) (Auto) 0.8 0.0-2.0 % Neutrophils # (Auto) 4.9 1.6-8.6 10 ^3/uL Lymphocytes # (Auto) 2.1 0.4-5.4 10 ^3/uL Monocytes # (Auto) 0.7 0-1.3 10 ^3/uL Eosinophils # (Auto) 0.1 0-0.8 10 ^3/uL Basophils # (Auto) 0.1 0-0.2 10 ^3/uL Nucleated Red Blood Cells 0.0 % Sodium Level 140 136-145 mmol/L Potassium Level 4.8 3.5-5.1 mmol/L Chloride Level 104 98-107 mmol/L Carbon Dioxide Level 28 20-31 mmol/L Anion Gap 8 5-15 Blood Urea Nitrogen 19 9-23 mg/dL Creatinine 1.06 H 0.550-1.02 mg/dL Glomerular Filtration Rate Calc 57 >90 mL/min BUN/Creatinine Ratio 17.9 10.0-20.0 Serum Glucose 74 74-106 mg/dL Calcium Level 10.6 H 8.7-10.4 mg/dL Total Bilirubin 0.4 0.2-1.0 mg/dL Aspartate Amino Transferase (AST) 26 13-40 U/L Alanine Aminotransferase (ALT) 32 7-40 U/L Alkaline Phosphatase 60 46-116 U/L Total Protein 6.6 5.7-8.2 g/dL Albumin 4.8 3.2-4.8 g/dL Lipase 75 H 12-53 U/L Urine Color Yellow Yellow Urine Clarity Clear Clear Urine pH 6.5 5.0-9.0 Urine Specific Eldena 1.013 1.001-1.035 Urine Protein Negative Negative Urine Ketones Negative Negative Urine Blood Negative Negative /uL Urine Nitrite Negative Negative Urine Bilirubin Negative Negative Urine Urobilinogen Normal Negative mg/dL Urine Leukocyte Esterase Negative Negative /uL Urine RBC 8 0 - 4 /hpf Urine Microscopic WBC 2 0-5 /HPF Urine Squamous Epithelial Cells Few <5 /hpf Urine Bacteria None seen None Seen /hpf Urine Glucose Normal Normal mg/dL Current Medications Medications (Trade) Dose Ordered Sig/Yumiko Route Start Time Stop Time Status Last Admin Ondansetron HCl (Zofran) 4 mg ONCE ONCE IV 06/05/24 13:00 06/05/24 13:07 DC 06/05/24 13:20 Sodium Chloride 1,000 ml @ 1,000 mls/hr Q1H ONCE IV 06/05/24 17:00 06/05/24 17:59 DC 06/05/24 17:15 Acetaminophen/ Hydrocodone Bitart ([place] 10/325MG Tab) 1 tab ONCE ONCE PO 06/05/24 17:00 06/05/24 17:01 DC 06/05/24 17:15 Ceftriaxone Sodium 50 ml @ 100 mls/hr ONCE ONCE IV 06/05/24 17:00 06/05/24 17:29 DC 06/05/24 17:[address] [address] Ph: [phone] DIAGNOSTIC IMAGING Diagnostic Imaging Report : [id number] Signed PATIENT: GABRIELE VELIZ SACCT: [id number] UNIT: [id number] : 1955 LOC: ER ROOM / BED: / AGE / SEX: 68 / F ADM STATUS: REG ER SERVICE 1300 ORDERING PHYSICIAN: ANGELINA PAIGE MD PROCEDURE(s): ABPL - CT AB PEL WO CON-NO ORAL OR IV REASON: l flank pain ORDER NUMBER(s): [id number], ACCESSION NUMBER(s): [id number] CT CT AB PEL WO CON-NO ORAL OR IV INDICATION: l flank pain EXAM DATE: 06/05/2024 01:11 PM COMPARISON: CT CT AB PEL WO CON-NO ORAL OR IV on DOS: 05/18/24, [facility] on DOS: 07/22/21 RADIATION DOSE: CTDIvol: 8.56 mGy, DLP: 416.14 mGy*cm PROCEDURE: Helical CT images were obtained of the abdomen and pelvis without IV contrast Sagittal and coronal reconstructions are provided. ORAL CONTRAST: None. ADDITIONAL IMAGES / REFORMATS: None All CT scans at this medical facility are performed using dose modulation techniques as appropriate to a performed exam including the following: Automated exposure control was utilized; adjustment of the MA and/or KV according to patient size; and use of iterative reconstruction technique. FINDINGS: LUNG BASE: Normal. LIVER: Normal. GALLBLADDER AND BILIARY TREE: No calcified gallstones. Normal caliber wall. No intra- or extrahepatic biliary ductal dilation. PANCREAS: Normal. SPLEEN: Normal. BOWEL: Mild colonic diverticulosis. Normal appendix. ADRENALS: Normal. KIDNEYS AND URETER: Bilateral nonobstructive kidney stones. BLADDER: Normal. REPRODUCTIVE ORGANS: Normal. LYMPH NODES:No lymphadenopathy. PERITONEUM: No ascites or free air. No other fluid collection. VESSELS: Scattered atherosclerotic calcifications are noted. RETROPERITONEUM: Normal. ABDOMINAL WALL: Normal. BONES: Scattered osseous degenerative changes are noted. IMPRESSION: No acute intraabdominal abnormality. Mild colonic diverticulosis. Bilateral nonobstructive kidney stones.. ATED BY: MANJIT HERNANDEZ MD DICTATED DATE/TIME: 06/05/24 1344 SIGNED BY: MANJIT HERNANDEZ MD SIGNED DATE/TIME: 06/05/24 1344 CC: X-Ray, Labs, Meds, VS Comment 68 yo F with h/o kidney stones, UTIs, psoriatic arthritis, bib self c/o L low back pain radiating to the L lower flank and LLQ, associated with dysuria VS remarkable for HR 120, BP 165/85 exam remarkable for left suprapubic, left lower quadrant and left lower flank tenderness to palpation Rhythm strip independently interpreted by me: Sinus tach, rate 120, no ectopy. CT abdomen and pelvis IMPRESSION: No acute intraabdominal abnormality. Mild colonic diverticulosis. Bilateral nonobstructive kidney stones.. CBC unremarkable, CMP remarkable for creatinine 1.06, lipase slightly elevated at 75, UA unremarkable Patient treated with the following in the ED: 1 L 0.9 normal saline IV bolus, [place] 5/325 mg p.o., Zofran 4 mg IV, Rocephin 1 g IV On re-evaluation, patient states pain has improved. Vitals are stable. Repeat abdominal exam is benign. Patient is no longer tachycardic. Hospitalization was considered, however patient had rapid improvement of symptoms with treatment in the ED, and I no longer feel hospitalization is necessary. I am not concerned for pancreatitis despite slightly elevated lipase, as the patient has no vomiting or upper abdominal pain or tenderness. Workup and symptoms point towards partially treated UTI (patient has been on amoxicillin for dental reasons) versus radiolucent or recently passed stone, so despite unremarkable UA I will prescribe oral antibiotics and pain medication. Patient advised to follow-up with the primary doctor within the next 2 days and return to ER for persistent or worsening symptoms. Rx Keflex, Pyridium, [place], Zofran Time of 1ST Reevaluation: 17:50 Reevaluation 1ST: Unchanged Time of 2ND Reevaluation: 19:44 Reevaluation 2ND: Improved Patient Education/Counseling: Diagnosis, Treatment, Need For Follow Up Family Education/Counseling: No Family Present Additional Information -Reviewed patient's previous visit(s): - The following tests were ordered, and results were reviewed by me: ua, trop x 2, cbc, cmp, lipase, ct abd pelvis w/o contrast, - I reviewed and agreed with the following test results read by other provider: radiologist - I discussed treatments and results with medical personnel and: patient Comprehensive systems review obtained and negative except for what is stated in the HPI. Departure 1 Departure Time of Disposition: 19:44 Impression: Primary Impression: UTI (urinary tract infection) Qualified Codes: N39.0 - Urinary tract infection, site not specified Disposition: HOME / SELF CARE / HOMELESS Condition: Stable Additional Instructions: Your blood and urine tests were unremarkable. Your CT scan was unremarkable. I have enclosed a report below. I have prescribed antibiotics for probable partially treated UTI, as well as pain medication. Follow-up with your primary doctor in 1-2 days. Return to ER for persistent or worsening symptoms. [place] [address] Ph: [phone] DIAGNOSTIC IMAGING Diagnostic Imaging Report : [id number] Signed PATIENT: GABRIELE VELIZ ACCT: [id number] UNIT: [id number] : 1955 LOC: ER ROOM / BED: / AGE / SEX: 68 / F ADM STATUS: REG ER SERVICE 1300 ORDERING PHYSICIAN: ANGELINA PAIGE MD PROCEDURE(s): ABPL - CT AB PEL WO CON-NO ORAL OR IV REASON: l flank pain ORDER NUMBER(s): [id number], ACCESSION NUMBER(s): [id number] CT CT AB PEL WO CON-NO ORAL OR IV INDICATION: l flank pain EXAM DATE: 06/05/2024 01:11 PM COMPARISON: CT CT AB PEL WO CON-NO ORAL OR IV on DOS: 05/18/24, [facility] on DOS: 07/22/21 RADIATION DOSE: CTDIvol: 8.56 mGy, DLP: 416.14 mGy*cm PROCEDURE: Helical CT images were obtained of the abdomen and pelvis without IV contrast Sagittal and coronal reconstructions are provided. ORAL CONTRAST: None. ADDITIONAL IMAGES / REFORMATS: None All CT scans at this medical facility are performed using dose modulation techniques as appropriate to a performed exam including the following: Automated exposure control was utilized; adjustment of the MA and/or KV according to patient size; and use of iterative reconstruction technique. FINDINGS: LUNG BASE: Normal. LIVER: Normal. GALLBLADDER AND BILIARY TREE: No calcified gallstones. Normal caliber wall. No intra- or extrahepatic biliary ductal dilation. PANCREAS: Normal. SPLEEN: Normal. BOWEL: Mild colonic diverticulosis. Normal appendix. ADRENALS: Normal. KIDNEYS AND URETER: Bilateral nonobstructive kidney stones. BLADDER: Normal. REPRODUCTIVE ORGANS: Normal. LYMPH NODES:No lymphadenopathy. PERITONEUM: No ascites or free air. No other fluid collection. VESSELS: Scattered atherosclerotic calcifications are noted. RETROPERITONEUM: Normal. ABDOMINAL WALL: Normal. BONES: Scattered osseous degenerative changes are noted. IMPRESSION: No acute intraabdominal abnormality. Mild colonic diverticulosis. Bilateral nonobstructive kidney stones.. e-Prescriptions Ondansetron Odt 4MG Tab (ZOFRAN PO) 4 Mg Tb 4 MG PO TID PRN, #30 TAB Prn nausea/vomiting ODT TAB-DISSOLVE IN MOUTH, THEN SWALLOW Prov: ANGELINA PAIGE MD 06/05/24 Hydrocodone-Acetaminophen (Hydrocodone Bitartrate/AC 5-325 mg) 1 Tab Tab 1 TAB PO Q6HP PRN, #20 TAB Prn breakthrough pain Prov: ANGELINA PAIGE MD 06/05/24 Phenazopyridine HCl (Phenazopyridine Hydrochol) 200 Mg Tab 200 MG PO TID PRN, #9 TAB Prn urinary pain Prov: ANGELINA PAIGE MD 06/05/24 Cephalexin Monohydrate (Cephalexin) 500 Mg Cap 1 CAP PO QID for 7 Days, #28 CAP Prov: ANGELINA PAIGE MD 06/05/24 Discharged With: Relative Critical Care Note Critical Care Time?: No Stability Stability form required: No Heart Score Heart Score: Heart Score Response (Comments) Value History N/A 0 EKG N/A 0 Age N/A 0 Risk Factors N/A 0 Troponin N/A 0 Total 0 I personally scribed for ANGELINA PAIGE MD ([email or web address]) on 06/05/24 at 17:12. Electronically submitted by Lynne Oakley ([email or web address]). ANGELINA PAIGE MD Jun 05, 2024 17:12
[2024-06-05] MEDS: SODIUM CHLORIDE 0.9% 1,000 ML IV ONE (17:15)
[2024-06-05] MEDS: HYDROcodone-ACET 10/325MG TAB PO ONE (17:15)
[2024-06-05] MEDS: cefTRIAXone 1GM/50ML D5W 50 ML IV ONE (17:16)
[2024-06-05] MEDS ORDERED: CEPH500C PO (19:49)
[2024-06-05] MEDS ORDERED: PHEN-1045 PO (19:49)
[2024-06-05] MEDS ORDERED: ZOFR4T PO (19:49)
[2024-06-05] MEDS ORDERED: HYDR-4902 PO (19:49)
[2024-06-05 20:15] VITALS: BP 120/75; PULSE 85; RESP 20; TEMP 98.2; O2SAT 99
== END 2024-06-05 20:25 | disposition home or self-care (01) ==
LOC: ER 11:55
DX: N39.0 Urinary tract infection, site not specified (principal); E03.9 Hypothyroidism, unspecified; Z88.6 Allergy status to analgesic agent; Z79.899 Other long term (current) drug therapy; Z90.89 Acquired absence of other organs
CPT/HCPCS: 36415; 74176; 80053; 81001; 83690; 84484; 85025; 96365; 96366; 96375; 99285; J0696; J2405

== ENCOUNTER 2024-06-27 16:41 | Inpatient (IN) | payer MEDICARE ==
[~2024-06-27] VITALS: Ht 167.6 cm; Wt 58.0 kg
[~2024-06-27 16:41] MED LIST changes: +PHEN-1045 PO; +ZOFR4T PO
[2024-06-27 17:57] LABS: Urine Bacteria None Seen /hpf (None Seen); Urine Blood TRACE /uL (Negative); Urine Clarity Clear (Clear); Urine Color Light-Yellow (Yellow); Urine Protein, UAD Negative (Negative); Urine Specific Gravity 1.012 (1.001-1.035); Urine Squamous Epithelial Cell None Seen /hpf (<5); Urine Urobilinogen Normal (Negative); Urine WBC 2 /HPF (0-5); Urine pH 5.5 (5.0-9.0)
[2024-06-27] MEDS: SODIUM CHLORIDE 0.9% 1,000 ML IV ONE (18:00)
[2024-06-27 18:59] LABS: Basophils # (auto) 0.1 10 ^3/uL (0-0.2); Basophils % (auto) 0.7 % (0.0-2.0); Eosinophils # (auto) 0.1 10 ^3/uL (0-0.8); Eosinophils % (auto) 0.7 % (0.0-7.0); Hematocrit 42.6 % (36.0-46.0); Hemoglobin 14.1 g/dL (12.2-16.2); Lymphocytes # (auto) 2.1 10 ^3/uL (0.4-5.4); Lymphocytes % (auto) 24.6 % (10.0-50.0); Mean Corpuscular Hemoglobin 31.8 pg (28.0-32.0); Mean Corpuscular Hgb Conc. 33.1 g/dL (32.0-36.0); Mean Corpuscular Volume 95.9 fL (80.0-100.0); Monocytes # (auto) 0.8 10 ^3/uL (0-1.3); Monocytes % (auto) 9.6 % (0.0-12.0); Neutrophils # (auto) 5.6 10 ^3/uL (1.6-8.6); Neutrophils % (auto) 64.4 % (37.0-80.0); Platelet Count (auto) 356 10^3/uL (140-450); Red Blood Cells 4.45 10^6/uL (4.0-5.20); Red Cell Distribution Width 13.6 % (11.8-14.3); White Blood Cell 8.7 10^3/uL (4.4-10.8)
--- NOTE | 2024-06-27 19:02 | DVH ---
Procedure: CT CT AB PEL WO CON-NO ORAL OR IV 06/27/2024 06:11 PM Indication: flank pain Comparison Study: CT CT AB PEL WO CON-NO ORAL OR IV on DOS: 06/05/24, CT CT AB PEL WO CON-NO ORAL OR I V on DOS: 05/18/24, [facility] on DOS: 07/22/21 Technique: Axial images were obtained and reformatted in coronal and sagittal planes. All CT scans at this medical facility are performed using dose modulation techniques as appropriate to a performed e xam including the following: Automated exposure control was utilized; adjustment of the MA and/or KV according to patient size; and use of iterative reconstruction technique. CT Dose: CTDI volume is 6.0 7 mGy. Dose-length product is 289.88 mGy*cm FINDINGS: Lower Chest: Unremarkable. Hepatobiliary: Unremarkable. Spleen: Unremarkable. Pancreas: Unremarkable. Adrenal Glands: Unremarkable. tract: The kidneys are normal in size bilaterally . Mild fullness of the left frontal pelvis. No hydroureter. Several subcentimeter nonobstructing bilateral renal calculi are seen measuring up to 8. 3 mm The urinary bladder is unremarkable. GI tract: The stomach is grossly normal in appearance. No evidence of small bowel obstruction. There is sigmoid diverticulosis without diverticulitis. The appendix is normal. Lymphatics: No mesenteric, retroperitoneal or periportal lymphadenopathy. Vasculature: The abdominal aorta is normal in in caliber. Pelvic Organs: Unremarkable Bones/soft tissues: No acute abnormality. Multilevel degenerative disc disease and posterior facet a rthropathy of the lumbar spine. Postoperative changes of the lower lumbar spine noted with discectomy and disc spacer placement L3-L5 levels. Other: None. IMPRESSION: 1. Stable mild left hydronephrosis without hydroureter. No definite obstructing ureteric calculi are seen. No bladder stone is identified. 2. Several subcentimeter nonobstructing bilateral renal calculi measuring up to 8.3 mm in the left ki dney.
[2024-06-27 19:09] LABS: Alanine Aminotransferase 32 U/L (7-40); Albumin 4.7 g/dL (3.2-4.8); Alkaline Phosphatase 63 U/L (46-116); Anion Gap 5 (5-15); Aspartate Aminotransferase 22 U/L (13-40); BUN/Creatinine Ratio 23.1 (10.0-20.0); Bilirubin, Total 0.3 mg/dL (0.2-1.0); Calcium 9.9 mg/dL (8.7-10.4); Carbon Dioxide 29 mmol/L (20-31); Chloride 106 mmol/L (98-107); Potassium 4.4 mmol/L (3.5-5.1); Sodium 140 mmol/L (136-145); Total Protein 6.5 g/dL (5.7-8.2)
[2024-06-27 19:23] LABS: Blood Urea Nitrogen 25 mg/dL (9-23); Glucose 143 mg/dL (74-106)
[2024-06-27] MEDS: KETOROLAC TROMETH 30 MG/ML 1ML VIAL IV ONE (19:25)
[2024-06-27] MEDS: cefTRIAXone 1GM/50ML D5W 50 ML IV ONE (19:26)
--- NOTE | 2024-06-27 19:55 | ED.PDOC ---
General HPI Comments C/C OF LEFT FLANK PAIN AND DIFFICULTY URINATING X 2 DAYS. PT STATES SHE WAS DIAGNOSED WITH A UTI 3 WEEKS AGO AND FINSIHED A WEEK OF ANITBIOTICS. PT STATES THE PAIN HAS WORSENDED TODAY AND RADIATES TO THE WHOLE ABDOMEN. Chief Complaint: Flank Pain Time Seen by MD: 16:51 Primary Care Provider: IMELDA CANALES Reviewed notes: Nurses Notes, Medications, Allergies Allergies: Coded Allergies: Morphine (Verified Allergy, Mild, 10/17/10) Home Meds Active Scripts Ondansetron Odt 4MG Tab (ZOFRAN PO) 4 Mg Tb, 4 MG PO TID PRN, #30 TAB Prn nausea/vomiting ODT TAB-DISSOLVE IN MOUTH, THEN SWALLOW Prov:ANGELINA PAIGE MD 06/05/24 Hydrocodone-Acetaminophen (Hydrocodone Bitartrate/AC 5-325 mg) 1 Tab Tab, 1 TAB PO Q6HP PRN, #20 TAB Prn breakthrough pain Prov:ANGELINA PAIGE MD 06/05/24 Phenazopyridine HCl (Phenazopyridine Hydrochol) 200 Mg Tab, 200 MG PO TID PRN, #9 TAB Prn urinary pain Prov:ANGELINA PAIGE MD 06/05/24 Cephalexin Monohydrate (Cephalexin) 500 Mg Cap, 1 CAP PO QID for 7 Days, #28 CAP Prov:ANGELINA PAIGE MD 06/05/24 Nitrofurantoin Monohydrate Mac (Macrobid) 100 Mg Cap, 100 MG PO BID for 5 Days, #10 CAP Prov:LATRICIA MIRANDA 05/18/24 Clindamycin Hcl (Clindamycin Hcl) 300 Mg Cap, 1 CAP PO TID for 7 Days, #21 CAP 0 Refills Prov:STEFANIE BURGOS 11/24/22 Cephalexin Monohydrate (Cephalexin) 500 Mg Cap, 1 CAP PO BID for 7 Days, #14 CAP 0 Refills Prov:STEFANIE BURGOS 11/24/22 Clindamycin HCl (Clindamycin Hydrochloride) 300 Mg Cap, 300 MG PO TID for 10 Days, #30 CAP Prov:YOU CASTLE MD 03/29/22 Warfarin Sodium (Warfarin Sodium) 3 Mg Tab, 3 MG PO DAILY for 10 Days, #10 TAB Prov:YOU CASTLE MD 03/29/22 Yeast (S. Boulardii)(S. Cerevi (Florastor) 250 Mg Cap, 250 MG PO DAILY for 30 Days, #30 CAP Prov:YOU CASTLE MD 03/29/22 Reported Medications Folic Acid (Folic Acid) 5 Mg Cap, 5 MG PO DAILY, CAP 07/21/21 Cholecalciferol (VITAMIN D3) 2,000 Unit Tab, 1 TAB PO DAILY, #30 TAB 5 Refills 07/21/21 Hydroxyzine Pamoate (Vistaril) 50 Mg Cap, 1 CAP PO BID for 30 Days, MG 07/21/21 Milnacipran Hydrochloride (Savella) 50 Mg Tab, 100 MG PO DAILY, TAB 07/21/21 Levothyroxine Sodium (Levothyroxine Sodium) 50 Mcg Tab, 50 MCG PO QAM for 30 Days, MCG 07/21/21 Tofacitinib Citrate (XELJANZ) 5 Mg Tab, 10 MG PO DAILY, TAB 07/21/21 Hydrocodone-Acetaminophen (Hydrocodone Bitartrate/AC 5-325 mg) 1 Tab Tab, 1 TAB PO DAILY, TAB 07/21/21 Tramadol Hcl (TRAMADOL HCL ER) 200 Mg Tab, 200 MG PO DAILY, TAB 07/21/21 Methotrexate (Methotrexate) 2.5 Mg Tab, 6 TAB PO QWEEKLY, MG 07/21/21 Mode of Arrival: Ambulatory Past Medical History PAST MEDICAL HISTORY: Arthritis, Kidney Stones, Thyroid Surgical History: Thyroidectomy [employer] History: Denies all [employer] Hx Family History Family History: Unknown Social History Smoker: Non-Smoker Alcohol: Occasionally Drugs: Denies Drug Use Lives In: Home Constitutional: denies: chills, diaphoresis, fatigue, fever, malaise, sweats, weakness, others EENTM: denies: blurred vision, double vision, ear bleeding, ear discharge, ear drainage, ear pain, ear ringing, eye pain, eye redness, hearing loss, mouth pain, mouth swelling, nasal discharge, nose bleeding, nose congestion, nose pain, photophobia, tearing, throat pain, throat swelling, voice changes, others Respiratory: denies: cough, hemoptysis, orthopnea, SOB at rest, shortness of breath, SOB with excertion, stridor, wheezing, others Cardiovascular: denies: chest pain, dizzy spells, diaphoresis, Dyspnea on exertion, edema, irregular heart beat, left arm pain, lightheadedness, palpitations, PND, syncope, others Gastrointestinal: denies: abdomen distended, abdominal pain, blood streaked bowels, constipated, diarrhea, dysphagia, difficulty swallowing, hematemesis, melena, nausea, poor appetite, poor fluid intake, rectal bleeding, rectal pain, vomiting, others Genitourinary: reports: flank pain; denies: abnormal vagina bleeding, burning, dyspareunia, dysuria, frequency, hematuria, incontinence, pain, , vagina discharge, urgency, others Neurological: denies: dizziness, fainting, headache, left sided numbness, left sided weakness, numbness, paresthesia, pre-existing deficit, right sided numbness, right sided weakness, seizure, speech problems, tingling, tremors, weakness, others Musculoskeletal: denies: back pain, gout, joint pain, joint swelling, muscle pain, muscle stiffness, neck pain, others Integumetry: denies: bruises, change in color, change in hair/nails, dryness, laceration, lesions, lumps, rash, wounds, others Allergic/Immunocompromised: denies: Difficulty Healing, Frequent Infections, Hives, Itching, others Hematologic/Lymphatic: denies: anemia, blood clots, easy bleeding, easy bruising, swollen glands, others Endocrine: denies: excessive hunger, excessive sweating, excessive thirst, excessive urination, flushing, intolerance to cold, intolerance to heat, unexplained weight gain, unexplained weight loss, others Psychiatric: denies: anxiety, bipolar disorder, depression, hopeless, panic disorder, schizophrenia, sleepless, suicidal, others Physical Exam General Appearance: No Apparent Distress, Normal HEENT: Normal ENT Inspection, Pharynx Normal, TMs Normal Neck: Full Range of Motion, Non-Tender Respiratory: Lungs Clear, No Respiratory Distress, Normal Breath Sounds, Other (NEGATIVE CVA TENDERNESS) Cardiovascular: No Edema, No JVD, No Murmur, No Gallop, Normal Peripheral Pulses, Regular Rate/Rhythm Breast Exam: Deferred Gastrointestinal: No Organomegaly, Non Tender, No Pulsatile Mass, Normal Bowel Sounds, Soft Genitalia: Deferred Pelvic: Deferred Rectal: Deferred Extremities: Normal capillary refill, Normal inspection, Normal range of motion, Non-tender, No pedal edema Musculoskeletal : Apperance: Normal Neurologic: Alert, finished yarn examiner II-XII nml as Tested, No Motor Deficits, Normal Affect, Normal Mood, No Sensory Deficits Cerebellar Function: Normal Reflexes: Normal Skin: Dry, Normal Color, Warm Lymphatic: No Adenopathy Was a procedure done? Was a procedure done?: No Differential Diagnosis Kidney stone (Female): Musculoskeletal pain, Urinary obstruction, Urolithiasis Urinary Problem (Female): Pyelonephritis, Urolithiasis, UTI X-Ray, Labs, Meds, VS Vital Signs Date Time Temp Pulse Resp B/P (MAP) Pulse Ox O2 Delivery O2 Flow Rate FiO2 06/27/24 22:38 98.5 80 18 162/73 (102) 98 98.5 06/27/24 22:38 98.5 80 18 162/73 (102) 98 98.5 06/27/24 18:39 116 16 96 Room Air 06/27/24 18:39 98.3 116 16 133/65 (87) 96 98.3 06/27/24 17:00 98.3 116 16 133/65 (87) 96 98.3 Lab Test 06/27/24 18:05 06/27/24 17:00 Range/Units White Blood Count 8.7 4.4-10.8 10^3/uL Red Blood Count 4.45 4.0-5.20 10^6/uL Hemoglobin 14.1 12.2-16.2 g/dL Hematocrit 42.6 36.0-46.0 % Mean Corpuscular Volume 95.9 80.0-100.0 fL Mean Corpuscular Hemoglobin 31.8 28.0-32.0 pg Mean Corpuscular Hemoglobin Concent 33.1 32.0-36.0 g/dL Red Cell Distribution Width 13.6 11.8-14.3 % Platelet Count 356 140-450 10^3/uL Mean Platelet Volume 8.2 6.9-10.8 fL Neutrophils (%) (Auto) 64.4 37.0-80.0 % Lymphocytes (%) (Auto) 24.6 10.0-50.0 % Monocytes (%) (Auto) 9.6 0.0-12.0 % Eosinophils (%) (Auto) 0.7 0.0-7.0 % Basophils (%) (Auto) 0.7 0.0-2.0 % Neutrophils # (Auto) 5.6 1.6-8.6 10 ^3/uL Lymphocytes # (Auto) 2.1 0.4-5.4 10 ^3/uL Monocytes # (Auto) 0.8 0-1.3 10 ^3/uL Eosinophils # (Auto) 0.1 0-0.8 10 ^3/uL Basophils # (Auto) 0.1 0-0.2 10 ^3/uL Nucleated Red Blood Cells 0.0 % Sodium Level 140 136-145 mmol/L Potassium Level 4.4 3.5-5.1 mmol/L Chloride Level 106 98-107 mmol/L Carbon Dioxide Level 29 20-31 mmol/L Anion Gap 5 5-15 Blood Urea Nitrogen 25 H 9-23 mg/dL Creatinine 1.08 H 0.550-1.02 mg/dL Glomerular Filtration Rate Calc 56 >90 mL/min BUN/Creatinine Ratio 23.1 H 10.0-20.0 Serum Glucose 143 H 74-106 mg/dL Calcium Level 9.9 8.7-10.4 mg/dL Total Bilirubin 0.3 0.2-1.0 mg/dL Aspartate Amino Transferase (AST) 22 13-40 U/L Alanine Aminotransferase (ALT) 32 7-40 U/L Alkaline Phosphatase 63 46-116 U/L Total Protein 6.5 5.7-8.2 g/dL Albumin 4.7 3.2-4.8 g/dL Urine Color Light-yellow Yellow Urine Clarity Clear Clear Urine pH 5.5 5.0-9.0 Urine Specific [place] 1.012 1.001-1.035 Urine Protein Negative Negative Urine Ketones Negative Negative Urine Blood Trace H Negative /uL Urine Nitrite Negative Negative Urine Bilirubin Negative Negative Urine Urobilinogen Normal Negative mg/dL Urine Leukocyte Esterase Negative Negative /uL Urine RBC 4 0 - 4 /hpf Urine Microscopic WBC 2 0-5 /HPF Urine Squamous Epithelial Cells None seen <5 /hpf Urine Bacteria None seen None Seen /hpf Urine Glucose Normal Normal mg/dL Current Medications Medications (Trade) Dose Ordered Sig/Yumiko Route Start Time Stop Time Status Last Admin Sodium Chloride 1,000 ml @ 200 mls/hr Q5H ONCE IV 06/27/24 18:00 06/27/24 22:59 DC 06/27/24 18:00 X-Ray, Labs, Meds, VS Comment IMAGING: CT ABDOMEN AND PELVIS IMPRESSION: 1. Stable mild left hydronephrosis without hydroureter. No definite obstructing ureteric calculi are seen. No bladder stone is identified. 2. Several subcentimeter nonobstructing bilateral renal calculi measuring up to 8.3 mm in the left kidney. LABS: CBC WITHIN NORMAL LIMITS CMP WITHIN NORMAL LIMITS UA POSITIVE RBCS MEDICATIONS: CEFTRIAXONE 1 G IV PIGGYBACK TORADOL 30 MG IV PUSH PLAN OF CARE: PATIENT PLACED FOR HOSPITALIST FOR ADMISSION OR IN RETRACTABLE RENAL CALCULI PAIN, HYDRONEPHROSIS. PATIENT STABLE IN ROOM F 6 ADMISSION ORDERS PLACED BY HOSPITALIST AWAITING BED PLACEMENT CONSULTS: RECOMMEND UROLOGY CONSULT IN THE MORNING FOR INTRACTABLE RENAL CALCULI PAIN Time of 1ST Reevaluation: 22:35 Reevaluation 1ST: Unchanged Patient Education/Counseling: Diagnosis, Treatment, Prognosis, Need For Follow Up Family Education/Counseling: No Family Present Departure 1 Departure Time of Disposition: 20:04 Impression: Primary Impression: Renal calculus, bilateral Additional Impressions: Hydronephrosis Qualified Codes: N13.30 - Unspecified hydronephrosis Pain due to calculus of kidney Disposition: ADMITTED INPATIENT Condition: Stable Critical Care Note Critical Care Time?: No Stability Stability form required: CHALINO Carver Jun 27, 2024 19:55
[2024-06-27] MEDS ORDERED: MORPHINE SULFATE INJ 2 MG/ml SYRG IV ONE (22:45)
--- NOTE | 2024-06-27 23:44 | DVHHPRES ---
History of Present Illness Resident Creating Document: MANUEL PÉREZ RESDIENT History of Present Illness This is a 68-year-old female with past medical history of DVT/pulmonary emboli, hyperparathyroidism (status post thyroidectomy), hypothyroidism (due to thyroidectomy), hypertension, dyslipidemia, kidney stone and psoriatic arthritis came to the hospital due to left flank pain since 1 day. Pain is localized at left side, radiating to the PEG, constant, sharp in nature, 6/10 which worsened with changing position. She also reports dysuria and frequency. She denies fever, nausea, vomiting, or any recent bowel habit changes. He also reports limbs numbness, for which she has an appointment with neurologist. PMHx: DVT/pulmonary emboli, hyperparathyroidism (status post thyroidectomy), hypothyroidism (due to thyroidectomy), hypertension, dyslipidemia, kidney stone and psoriatic arthritis PSHx: Thyroidectomy (due to hyperparathyroidism), knee and back surgery Family history: Not significant Social history: Ex-smoker, lives at home, denies any other drug use Home medication: Levothyroxine 25 mEq, losartan, Repatha (evolovumab, 2 times per month for dyslipidemia), Xeljanz (tofacitinib) for psoriatic arthritis Allergic history: Morphine (causing pruritus) Review of Systems Review of Systems General: patient denies fever, fatigue, weaknes, sweating, any recent changes in appetite and weight HEENT: No headaches, visiual changes, hearing loss, tinnitus, nasal congestion and discharge, and sore throat. Cardiovascular: Denies chest pain, palpitations, dyspnea on exertion, orthopnea, or claudication. Respiratory: No cough, and wheezing. Gastrointestinal: Denies nausea, vomiting, dysphagia, odynophagia, heartburn, abdominal pain, flatulence, bloating, diarrhea, constipation, change in stool, or blood in stool. Genitourinary: Reports left flank pain, dysuria and frequency Endocrine: No heat or cold intolerance, polydipsia, polyuria, and polyphagia. Neurological: No dizziness, extremity weakness and numbness, tremors, gait di sturbance, seizures, and memory impairment. Psychiatric: Denies depression, anxiety,or insomnia. Musculoskeletal: Denies neck pain, stiffness and swelling, back pain, muscle weakness, joint pain, stiffness, swelling, or limited range of motion. Skin: No rashes, itching, skin lesion, changes in hair, nail, skin texture and breast. Hematologic/Lymphatic: Denies easy bruising, bleeding tendencies, or lymph node enlargement. Allergies: Coded Allergies: Morphine (Verified Allergy, Mild, 10/17/10) Exam Vital Signs Vital Signs Date Time Temp Pulse Resp B/P (MAP) Pulse Ox O2 Delivery O2 Flow Rate FiO2 06/27/24 22:38 98.5 80 18 162/73 (102) 98 98.5 06/27/24 18:39 Room Air Exam General Appearance: Alert, Oriented X3, Cooperative, No acute distress HEENT: Atraumatic, PERRLA, EOMI, Mucous membrane moist/pink Respiratory: Clear to auscultation, Normal air movement Cardiovascular: Regular rate, Normal S1, Normal S2, No murmurs, no chest wall tenderness Abdominal: Normal bowel sounds, Soft, No tenderness, No hepatospenomegaly, No masses Extremities: No clubbing, No cyanosis, No edema, Normal pulses, No tenderness/swelling Skin: No rashes, No breakdown, No significant lesion Neuro: Normal gait, Normal speech, Strength at 5/5 X4 ext, Normal tone, Sensation intact, Cranial nerves 3-12 NL, Reflexes 2+ Psych/Mental Status: Mental status NL, Mood NL Labs/Xrays Labs Test 06/27/24 18:05 06/27/24 17:00 Range/Units White Blood Count 8.7 4.4-10.8 10^3/uL Red Blood Count 4.45 4.0-5.20 10^6/uL Hemoglobin 14.1 12.2-16.2 g/dL Hematocrit 42.6 36.0-46.0 % Mean Corpuscular Volume 95.9 80.0-100.0 fL Mean Corpuscular Hemoglobin 31.8 28.0-32.0 pg Mean Corpuscular Hemoglobin Concent 33.1 32.0-36.0 g/dL Red Cell Distribution Width 13.6 11.8-14.3 % Platelet Count 356 140-450 10^3/uL Mean Platelet Volume 8.2 6.9-10.8 fL Neutrophils (%) (Auto) 64.4 37.0-80.0 % Lymphocytes (%) (Auto) 24.6 10.0-50.0 % Monocytes (%) (Auto) 9.6 0.0-12.0 % Eosinophils (%) (Auto) 0.7 0.0-7.0 % Basophils (%) (Auto) 0.7 0.0-2.0 % Neutrophils # (Auto) 5.6 1.6-8.6 10 ^3/uL Lymphocytes # (Auto) 2.1 0.4-5.4 10 ^3/uL Monocytes # (Auto) 0.8 0-1.3 10 ^3/uL Eosinophils # (Auto) 0.1 0-0.8 10 ^3/uL Basophils # (Auto) 0.1 0-0.2 10 ^3/uL Nucleated Red Blood Cells 0.0 % Sodium Level 140 136-145 mmol/L Potassium Level 4.4 3.5-5.1 mmol/L Chloride Level 106 98-107 mmol/L Carbon Dioxide Level 29 20-31 mmol/L Anion Gap 5 5-15 Blood Urea Nitrogen 25 H 9-23 mg/dL Creatinine 1.08 H 0.550-1.02 mg/dL Glomerular Filtration Rate Calc 56 >90 mL/min BUN/Creatinine Ratio 23.1 H 10.0-20.0 Serum Glucose 143 H 74-106 mg/dL Calcium Level 9.9 8.7-10.4 mg/dL Total Bilirubin 0.3 0.2-1.0 mg/dL Aspartate Amino Transferase (AST) 22 13-40 U/L Alanine Aminotransferase (ALT) 32 7-40 U/L Alkaline Phosphatase 63 46-116 U/L Total Protein 6.5 5.7-8.2 g/dL Albumin 4.7 3.2-4.8 g/dL Urine Color Light-yellow Yellow Urine Clarity Clear Clear Urine pH 5.5 5.0-9.0 Urine Specific [place] 1.012 1.001-1.035 Urine Protein Negative Negative Urine Ketones Negative Negative Urine Blood Trace H Negative /uL Urine Nitrite Negative Negative Urine Bilirubin Negative Negative Urine Urobilinogen Normal Negative mg/dL Urine Leukocyte Esterase Negative Negative /uL Urine RBC 4 0 - 4 /hpf Urine Microscopic WBC 2 0-5 /HPF Urine Squamous Epithelial Cells None seen <5 /hpf Urine Bacteria None seen None Seen /hpf Urine Glucose Normal Normal mg/dL Assessment/Plan Assessment/Plan Hydronephrosis, likely due to renal stone History of recurrent kidney stone due to hyperparathyroidism History of hyperparathyroidism, status post thyroidectomy Hypothyroidism, due to thyroidectomy Abdominal CT scan shows mild left hydronephrosis without hydroureter, no definite obstructing ureteric calculi are seen, several subcentimeter nonobstructing bilateral renal calculi measuring up to 8.3 mm in the left kidney Consulted Urology IV fluid Pain control Flomax Hypertension, amlodipine History of dyslipidemia Psoriatic arthritis History of pulmonary embolus/DVT DIET: Cardiac DVT PROPHYLAXIS: Lovenox GI PROPHYLAXIS:: Protonix CODE STATUS: Goal of care discussed for more than 18 minutes, full code DISPOSITION: Med/surge Patient's status and plan discussed with the patient. Case discussed with Dr. Hernandez. Plan discussed with: Patient, Other (RN) Date of Service: Jun 27, 2024 Billing Provider: YOU HERNANDEZ MD Common Visit Codes: [id number] INP/OBS CARE (HIGH) Secondary Visit Codes: [id number] CARE PLAN 30 MINUTES MANUEL PÉREZ Jun 27, 2024 23:44 YOU HERNANDEZ MD Jun 28, 2024 11:04
[2024-06-27] MEDS ORDERED: MORPHINE SULFATE INJ 2 MG/ml SYRG IV PRN (23:45)
[2024-06-27] MEDS ORDERED: ACETAMINOPHEN 325 MG TAB PO PRN (23:45)
[2024-06-28 00:19] LABS: Opiate Scree,Urine Neg (NEGATIVE)
[2024-06-28 00:20] LABS: Amphetamine Screen, Urine Neg (NEGATIVE); Barbiturate Scree,Urine Neg (NEGATIVE); Benzodiazephine Screen, Urine Neg (NEGATIVE); Cocaine Screen, Urine Neg (NEGATIVE); Phencyclidine Screen, Urine Neg (NEGATIVE)
[2024-06-28 00:21] LABS: Cannabinoid Screen, Urine Neg (NEGATIVE)
[2024-06-28 00:40] VITALS: BP 144/68; PULSE 75; RESP 18; TEMP 98.5; O2SAT 97
[2024-06-28] MEDS: HYDROcodone-ACET 5/325MG TAB PO PRN (00:48)
[2024-06-28] MEDS: amLODIPine BESYLATE 5 MG TAB PO ONE (00:55)
[2024-06-28] MEDS ORDERED: LOSA-533 PO (01:30)
[2024-06-28] MEDS: TAMSULOSIN HYDROCHLORIDE 0.4 MG CAP PO ONE (03:55)
[2024-06-28] MEDS: SODIUM CHLORIDE 0.9% 1,000 ML IV ONE (03:57)
[2024-06-28 05:00] VITALS: BP 145/68; PULSE 89; RESP 16; TEMP 98.7; O2SAT 97
[2024-06-28 05:25] LABS: Basophils # (auto) 0.1 10 ^3/uL (0-0.2); Basophils % (auto) 1.2 % (0.0-2.0); Eosinophils # (auto) 0.1 10 ^3/uL (0-0.8); Eosinophils % (auto) 1.2 % (0.0-7.0); Hemoglobin 13.1 g/dL (12.2-16.2); Lymphocytes % (auto) 28.6 % (10.0-50.0); Mean Corpuscular Hemoglobin 32.2 pg (28.0-32.0); Mean Corpuscular Hgb Conc. 33.7 g/dL (32.0-36.0); Mean Corpuscular Volume 95.6 fL (80.0-100.0); Monocytes # (auto) 0.8 10 ^3/uL (0-1.3); Monocytes % (auto) 11.9 % (0.0-12.0); Neutrophils % (auto) 57.1 % (37.0-80.0); Platelet Count (auto) 293 10^3/uL (140-450); Red Blood Cells 4.08 10^6/uL (4.0-5.20); Red Cell Distribution Width 13.7 % (11.8-14.3); White Blood Cell 7.1 10^3/uL (4.4-10.8)
[2024-06-28 05:40] LABS: Alanine Aminotransferase 29 U/L (7-40); Albumin 4.4 g/dL (3.2-4.8); Alkaline Phosphatase 58 U/L (46-116); Anion Gap 6 (5-15); Aspartate Aminotransferase 24 U/L (13-40); BUN/Creatinine Ratio 18.8 (10.0-20.0); Bilirubin, Total 0.5 mg/dL (0.2-1.0); Blood Urea Nitrogen 18 mg/dL (9-23); Carbon Dioxide 27 mmol/L (20-31); Glucose 97 mg/dL (74-106); Potassium 4.3 mmol/L (3.5-5.1); Sodium 142 mmol/L (136-145); Total Protein 6.4 g/dL (5.7-8.2)
[2024-06-28 05:44] LABS: Chloride 109 mmol/L (98-107)
[2024-06-28 05:47] LABS: INR 1.02 (0.9-1.15); Partial Thromboplastin Time 25.6 SEC (24.5-34.5); Prothrombin Time 10.8 sec (9.3-11.8)
[2024-06-28] MEDS: LEVOTHYROXINE SODIUM 25 MCG TAB PO SCH (06:11)
[2024-06-28 09:19] VITALS: BP 112/62; PULSE 101; RESP 14; RESP 15; TEMP 99.6; O2SAT 98
[2024-06-28] MEDS: ENOXAPARIN SOD 40 MG/0.4 ML SYRINGE SC SCH (10:21)
[2024-06-28] MEDS: amLODIPine BESYLATE 5 MG TAB PO SCH (10:22)
--- NOTE | 2024-06-28 11:32 | DVHPNRES ---
Progress Note Date Seen: Jun 28, 2024 Resident Creating Document: JASMYN PARKS RESIDENT Has the PT tested + for MRSA If YES, has PT been informed?: No Medical Necessity Reason Pt with a Central, PICC or Fol: No Subjective Review of Systems This is a 68-year-old female with past medical history of DVT/pulmonary emboli, hyperparathyroidism (status post thyroidectomy), hypothyroidism (due to thyroidectomy), hypertension, dyslipidemia, kidney stone and psoriatic arthritis came to the hospital due to left flank pain since 1 day. Pain is localized at left side, constant, sharp in nature, 6/10 which worsened with changing position. She also reports dysuria and frequency. She denies fever, nausea, vomiting, or any recent bowel habit changes. He also reports limbs numbness, for which she has an appointment with neurologist. PMHx: DVT/pulmonary emboli, hyperparathyroidism (status post thyroidectomy), hypothyroidism (due to thyroidectomy), hypertension, dyslipidemia, kidney stone and psoriatic arthritis PSHx: Thyroidectomy (due to hyperparathyroidism), knee and back surgery Family history: Not significant Social history: Ex-smoker, lives at home, denies any other drug use Home medication: Levothyroxine 25 mEq, losartan, Repatha (evolovumab, 2 times per month for dyslipidemia), Xeljanz (tofacitinib) for psoriatic arthritis Allergic history: Morphine (causing pruritus) Objective vital signs Vital Sign Date Time Temp Pulse Resp B/P (MAP) Pulse Ox O2 Delivery O2 Flow Rate FiO2 06/28/24 10:22 112/62 06/28/24 09:19 99.6 101 15 98 99.6 06/28/24 09:19 Room Air* 0 21 Total Intake and Output 06/27/24 06/27/24 06/28/24 15:00 23:00 07:00 Intake Total 300 ml Output Total 300 ml Balance 0 ml medications Current Medications Medications Dose Ordered Sig/Yumiko Route Start Time Stop Time Status Last Admin Dose Admin Acetaminophen 650 mg Q6HP PRN PO 06/27/24 23:45 Acetaminophen/ Hydrocodone Bitart 1 tab Q4HP PRN PO 06/27/24 23:45 06/28/24 06:11 1 TAB Ondansetron HCl 4 mg Q4HP PRN IV 06/27/24 23:45 Enoxaparin Sodium 40 mg DAILY SC 06/28/24 10:00 06/28/24 10:21 40 MG Amlodipine Besylate 10 mg DAILY PO 06/28/24 10:00 06/28/24 10:22 10 MG Levothyroxine Sodium 25 mcg QAM@0600 PO 06/28/24 06:00 06/28/24 06:11 25 MCG Morphine Sulfate 1 mg Q6HP PRN IV 06/27/24 23:45 Hold Tamsulosin HCl 0.4 mg QPM PO 06/28/24 18:00 Ceftriaxone Sodium 50 ml @ 100 mls/hr DAILY@09 IV 06/29/24 09:00 UNV Examination General Appearance: Alert, Oriented X3, Cooperative, No acute distress HEENT: Atraumatic, PERRLA, EOMI, Mucous membrane moist/pink Respiratory: Clear to auscultation, Normal air movement Cardiovascular: Regular rate, Normal S1, Normal S2, No murmurs, no chest wall tenderness Abdominal: Normal bowel sounds, Soft, No tenderness, No hepatospenomegaly, No masses Extremities: No clubbing, No cyanosis, No edema, Normal pulses, No tenderness/swelling Skin: No rashes, No breakdown, No significant lesion Neuro: Normal gait, Normal speech, Strength at 5/5 X4 ext, Normal tone, Sensation intact, Cranial nerves 3-12 NL, Reflexes 2+ Psych/Mental Status: Mental status NL, Mood NL laboratory and microbiology Laboratory Tests 06/28/24 04:50 Test 06/28/24 04:50 Range/Units Serum Glucose 97 74-106 mg/dL Problem List/Assessment/Plan Problem List/Assessment/Plan Hydronephrosis, likely due to renal stone History of recurrent kidney stone History of hyperparathyroidism, status post thyroidectomy Hypothyroidism, due to thyroidectomy Abdominal CT scan shows mild left hydronephrosis without hydroureter, no definite obstructing ureteric calculi are seen, several subcentimeter nonobstructing bilateral renal calculi measuring up to 8.3 mm in the left kidney Consulted Urology: pending IV fluid Pain control Flomax Ceftriaxone IV Normal PTH Hypertension: amlodipine History of dyslipidemia Psoriatic arthritis History of pulmonary embolus/DVT DIET: Cardiac DVT PROPHYLAXIS: Lovenox GI PROPHYLAXIS:: Protonix CODE STATUS: Goal of care discussed for more than 18 minutes, full code DISPOSITION: Med/surge Patient's status and plan discussed with the patient. Case discussed with Dr. Mathis Plan discussed with: Patient, Other (rn) My Orders My Orders Orders - JASMYN PARKS Procedure Category Date Status Time Ceftriaxone 1gm/50ml PHA 06/29/24 Logged D5w (Adiahin) 09:00 Date of Service: Jun 28, 2024 Billing Provider: RITA MATHIS DO Common Visit Codes: [id number] INP/OBS CARE(HIGH) JASMYN PARKS RESIDENT Jun 28, 2024 11:32 RITA MATHIS DO Jul 01, 2024 12:10
[2024-06-28] MEDS ORDERED: cefTRIAXone 1GM/50ML D5W 50 ML IV SCH (13:00)
[2024-06-28 13:14] VITALS: BP 128/65; PULSE 90; RESP 18; TEMP 98.3; O2SAT 99
[2024-06-28] MEDS: cefTRIAXone 1GM/50ML D5W 50 ML IV SCH (13:37)
[2024-06-28 17:00] VITALS: BP 135/58; PULSE 104; RESP 19; TEMP 97.9; O2SAT 97
[2024-06-28] MEDS: TAMSULOSIN HYDROCHLORIDE 0.4 MG CAP PO SCH (17:45)
[2024-06-28 21:00] VITALS: BP 119/57; PULSE 88; RESP 18; TEMP 97.5; O2SAT 99
[2024-06-28] MEDS: ONDANSETRON HCL 4 MG/2 ML VIAL IV PRN (23:43)
[2024-06-29] VITALS (7 sets, daily range): BP systolic 103–143; BP diastolic 57–79; PULSE 85–101; RESP 18–20; TEMP 97.3–98.2; O2SAT 96–99
[2024-06-29] MEDS: PANTOPRAZOLE 40 MG/10 ML VIAL INJ IV ONE (01:51)
[2024-06-29] MEDS: KETOROLAC TROMETH 30 MG/ML 1ML VIAL IV PRN (01:57)
[2024-06-29 07:36] LABS: Basophils # (auto) 0.1 10 ^3/uL (0-0.2); Eosinophils # (auto) 0.1 10 ^3/uL (0-0.8); Eosinophils % (auto) 0.9 % (0.0-7.0); Hematocrit 38.9 % (36.0-46.0); Hemoglobin 13.3 g/dL (12.2-16.2); Lymphocytes # (auto) 1.6 10 ^3/uL (0.4-5.4); Lymphocytes % (auto) 19.2 % (10.0-50.0); Mean Corpuscular Hemoglobin 32.9 pg (28.0-32.0); Mean Corpuscular Hgb Conc. 34.2 g/dL (32.0-36.0); Mean Corpuscular Volume 96.1 fL (80.0-100.0); Monocytes # (auto) 1.1 10 ^3/uL (0-1.3); Monocytes % (auto) 12.6 % (0.0-12.0); Neutrophils # (auto) 5.6 10 ^3/uL (1.6-8.6); Neutrophils % (auto) 66.3 % (37.0-80.0); Platelet Count (auto) 323 10^3/uL (140-450); Red Blood Cells 4.04 10^6/uL (4.0-5.20); White Blood Cell 8.4 10^3/uL (4.4-10.8)
--- NOTE | 2024-06-29 07:45 | DVHINCON2 ---
Date of service: Jun 29, 2024 Referring Physician Hospitalist Reason for Consultation kidney stones History of Present Illness History Source: Patient, RN Notes, MD Notes Exam Limitations: No limitations HPI 68-year-old female with past medical history of DVT/pulmonary emboli, hyperparathyroidism (status post thyroidectomy), hypothyroidism (due to thyroidectomy), hypertension, dyslipidemia, kidney stone and psoriatic arthritis came to the hospital due to left flank pain since 1 day. PMHx: DVT/pulmonary emboli, hyperparathyroidism (status post thyroidectomy), hypothyroidism (due to thyroidectomy), hypertension, dyslipidemia, kidney stone and psoriatic arthritis PSHx: Thyroidectomy (due to hyperparathyroidism), knee and back surgery Family history: Not significant Social history: Ex-smoker, lives at home, denies any other drug use Home medication: Levothyroxine 25 mEq, losartan, Repatha (evolovumab, 2 times per month for dyslipidemia), Xeljanz (tofacitinib) for psoriatic arthritis Allergic history: Morphine (causing pruritus) Home Meds Active Scripts Ondansetron Odt 4MG Tab (ZOFRAN PO) 4 Mg Tb, 4 MG PO TID PRN, #30 TAB Prn nausea/vomiting ODT TAB-DISSOLVE IN MOUTH, THEN SWALLOW Prov:ANGELINA PAIGE MD 06/05/24 Hydrocodone-Acetaminophen (Hydrocodone Bitartrate/AC 5-325 mg) 1 Tab Tab, 1 TAB PO Q6HP PRN, #20 TAB Prn breakthrough pain Prov:ANGELINA PAIGE MD 06/05/24 Phenazopyridine HCl (Phenazopyridine Hydrochol) 200 Mg Tab, 200 MG PO TID PRN, #9 TAB Prn urinary pain Prov:ANGELINA PAIGE MD 06/05/24 Cephalexin Monohydrate (Cephalexin) 500 Mg Cap, 1 CAP PO QID for 7 Days, #28 CAP Prov:ANGELINA PAIGE MD 06/05/24 Nitrofurantoin Monohydrate Mac (Macrobid) 100 Mg Cap, 100 MG PO BID for 5 Days, #10 CAP Prov:LATRICIA MIRANDA 05/18/24 Clindamycin Hcl (Clindamycin Hcl) 300 Mg Cap, 1 CAP PO TID for 7 Days, #21 CAP 0 Refills Prov:STEFANIE BURGOS 11/24/22 Cephalexin Monohydrate (Cephalexin) 500 Mg Cap, 1 CAP PO BID for 7 Days, #14 CAP 0 Refills Prov:STEFANIE BURGOS 11/24/22 Clindamycin HCl (Clindamycin Hydrochloride) 300 Mg Cap, 300 MG PO TID for 10 Days, #30 CAP Prov:YOU CASTLE MD 03/29/22 Warfarin Sodium (Warfarin Sodium) 3 Mg Tab, 3 MG PO DAILY for 10 Days, #10 TAB Prov:YOU CASTLE MD 03/29/22 Yeast (S. Boulardii)(S. Cerevi (Florastor) 250 Mg Cap, 250 MG PO DAILY for 30 Days, #30 CAP Prov:YOU CASTLE MD 03/29/22 Reported Medications Losartan Potassium (Losartan Potassium) 25 Mg Tab, 1 TAB PO DAILY, #90 TAB 1 Refill 06/28/24 Folic Acid (Folic Acid) 5 Mg Cap, 5 MG PO DAILY, CAP 07/21/21 Cholecalciferol (VITAMIN D3) 2,000 Unit Tab, 1 TAB PO DAILY, #30 TAB 5 Refills 07/21/21 Hydroxyzine Pamoate (Vistaril) 50 Mg Cap, 1 CAP PO BID for 30 Days, MG 07/21/21 Milnacipran Hydrochloride (Savella) 50 Mg Tab, 100 MG PO DAILY, TAB 07/21/21 Levothyroxine Sodium (Levothyroxine Sodium) 50 Mcg Tab, 50 MCG PO QAM for 30 Days, MCG 07/21/21 Tofacitinib Citrate (XELJANZ) 5 Mg Tab, 10 MG PO DAILY, TAB 07/21/21 Hydrocodone-Acetaminophen (Hydrocodone Bitartrate/AC 5-325 mg) 1 Tab Tab, 1 TAB PO DAILY, TAB 07/21/21 Tramadol Hcl (TRAMADOL HCL ER) 200 Mg Tab, 200 MG PO DAILY, TAB 07/21/21 Methotrexate (Methotrexate) 2.5 Mg Tab, 6 TAB PO QWEEKLY, MG 07/21/21 Past Medical History Patient Family History: Alcoholism G8 MOTHER G8 FATHER Alzheimer's disease G8 MOTHER Arthritis G8 MOTHER FH: colon cancer FH: dementia FH: hypertension FH: throat cancer Review of Systems Genitourinary: Dysuria, Pain H&P Exam Vital Signs Vital Signs Date Time Temp Pulse Resp B/P (MAP) Pulse Ox O2 Delivery O2 Flow Rate FiO2 06/29/24 05:00 97.4 88 18 114/75 (88) 96 97.4 06/28/24 20:00 Room Air* 0 21 General Appeara: Well developed, Well nourished, Normal Appearance Neuro/Mental St: Alert, Oriented Appearance: Appropriate appearance, Appropriate insight Eye contact/ Speech: Cooperative, Good eye contact, Normal speech Skin Exam: Normal inspection, Normal color, Warm/dry Labs/Xrays [place] [id number] Ph: [phone] DIAGNOSTIC IMAGING Diagnostic Imaging Report : [id number] Signed PATIENT: GABRIELE VELIZ SACCT: [id number] UNIT: [id number] : 1955 LOC: ER ROOM / BED: / AGE / SEX: 68 / F ADM STATUS: REG ER SERVICE [id number] ORDERING PHYSICIAN: CHALINO KINCAID PROCEDURE(s): ABPL - CT AB PEL WO CON-NO ORAL OR IV REASON: flank pain ORDER NUMBER(s): [id number], ACCESSION NUMBER(s): [id number] Procedure: CT CT AB PEL WO CON-NO ORAL OR IV 06/27/2024 06:11 PM Indication: flank pain Comparison Study: CT CT AB PEL WO CON-NO ORAL OR IV on DOS: 06/05/24, CT CT AB PEL WO CON-NO ORAL OR IV on DOS: 05/18/24, [facility] on DOS: 07/22/21 Technique: Axial images were obtained and reformatted in coronal and sagittal planes. All CT scans at this medical facility are performed using dose modulation techniques as appropriate to a performed exam including the f ollowing: Automated exposure control was utilized; adjustment of the MA and/or KV according to patient size; and use of iterative reconstruction technique. CT Dose: CTDI volume is 6.07 mGy. Dose-length product is 289.88 mGy*cm FINDINGS: Lower Chest: Unremarkable. Hepatobiliary: Unremarkable. Spleen: Unremarkable. Pancreas: Unremarkable. Adrenal Glands: Unremarkable. tract: The kidneys are normal in size bilaterally . Mild fullness of the left frontal pelvis. No hydroureter. Several subcentimeter nonobstructing bilateral renal calculi are seen measuring up to 8.3 mm The urinary bladder is unremarkable. GI tract: The stomach is grossly normal in appearance. No evidence of small bowel obstruction. There is sigmoid diverticulosis without diverticulitis. The appendix is normal. Lymphatics: No mesenteric, retroperitoneal or periportal lymphadenopathy. Vasculature: The abdominal aorta is normal in in caliber. Pelvic Organs: Unremarkable Bones/soft tissues: No acute abnormality. Multilevel degenerative disc disease and posterior facet arthropathy of the lumbar spine. Postoperative changes of the lower lumbar spine noted with discectomy and disc spacer placement L3-L5 levels. Other: None. IMPRESSION: 1. Stable mild left hydronephrosis without hydroureter. No definite obstructing ureteric calculi are seen. No bladder stone is identified. 2. Several subcentimeter nonobstructing bilateral renal calculi measuring up to 8.3 mm in the left kidney. ATED BY: LENA PRADO MD DICTATED DATE/TIME: 06/27/241899 SIGNED BY: LENA PRADO MD SIGNED DATE/TIME: 06/27/241899 CC: Labs Test 06/29/24 05:50 06/28/24 04:50 06/27/24 18:05 06/27/24 17:00 Range/Units Eosinophils (%) (Auto) 1.2 0.0-7.0 % Eosinophils # (Auto) 0.1 0-0.8 10 ^3/uL Basophils # (Auto) 0.1 0-0.2 10 ^3/uL Nucleated Red Blood Cells 0.0 % Prothrombin Time 10.8 9.3-11.8 sec Prothrombin Time INR 1.02 0.9-1.15 Activated Partial Thromboplast Time 25.6 24.5-34.5 SEC Vitamin D 25-Hydroxy 57.8 30.0-100 ng/mL Parathyroid Hormone (Intact) 54.3 18.4-80.1 pg/mL Magnesium Level 2.1 1.6-2.6 mg/dL Urine Color Light-yellow Yellow Urine Clarity Clear Clear Urine pH 5.5 5.0-9.0 Urine Specific [place] 1.012 1.001-1.035 Urine Protein Negative Negative Urine Ketones Negative Negative Urine Blood Trace H Negative /uL Urine Nitrite Negative Negative Urine Bilirubin Negative Negative Urine Urobilinogen Normal Negative mg/dL Urine Leukocyte Esterase Negative Negative /uL Urine RBC 4 0 - 4 /hpf Urine Microscopic WBC 2 0-5 /HPF Urine Squamous Epithelial Cells None seen <5 /hpf Urine Bacteria None seen None Seen /hpf Urine Glucose Normal Normal mg/dL Urine Opiates Screen Neg NEGATIVE Urine Fentanyl Screen Neg NEGATIVE Urine Barbiturates Screen Neg NEGATIVE Urine Phencyclidine Screen Neg NEGATIVE Urine Amphetamines Screen Neg NEGATIVE Urine Benzodiazepines Screen Neg NEGATIVE Urine Cocaine Screen Neg NEGATIVE Urine Cannabinoids Screen Neg NEGATIVE Microbiology Date/Time Source Procedure Growth Status 06/28/24 03:58 Nose MRSA Screen - Final Complete Assessment/Plan Problem List: (1) Bilateral kidney stones Plan oupt ESWL left the right to be arranged signing off Plan discussed with: Patient, Other CARLOS [employer] Jun 29, 2024 07:45
[2024-06-29 07:52] LABS: Alanine Aminotransferase 34 U/L (7-40); Alkaline Phosphatase 64 U/L (46-116); Anion Gap 8 (5-15); BUN/Creatinine Ratio 14.3 (10.0-20.0); Blood Urea Nitrogen 15 mg/dL (9-23); Calcium 9.4 mg/dL (8.7-10.4); Carbon Dioxide 26 mmol/L (20-31); Glucose 94 mg/dL (74-106); Potassium 4.5 mmol/L (3.5-5.1); Sodium 141 mmol/L (136-145); Total Protein 6.7 g/dL (5.7-8.2)
[2024-06-29 07:54] LABS: Albumin 4.6 g/dL (3.2-4.8); Aspartate Aminotransferase 29 U/L (13-40); Bilirubin, Total 0.3 mg/dL (0.2-1.0)
[2024-06-29 07:56] LABS: Chloride 107 mmol/L (98-107)
[2024-06-29] MEDS ORDERED: TAMS-35 PO (09:57)
[2024-06-29] MEDS ORDERED: CIPR-173 PO (09:57)
[2024-06-29] MEDS ORDERED: IBUP-1453 PO (09:57)
[2024-06-29] MEDS: PANTOPRAZOLE 40 MG/10 ML VIAL INJ IV SCH (11:06)
[2024-06-29] MEDS: ALPRAZolam 0.25 MG TAB PO PRN (13:26)
--- NOTE | 2024-06-29 20:35 | DVHPNRES ---
Progress Note Date Seen: Jun 29, 2024 Resident Creating Document: JASMYN PARKS RESIDENT Has the PT tested + for MRSA If YES, has PT been informed?: No Medical Necessity Reason Pt with a Central, PICC or Fol: No Subjective Review of Systems This is a 68-year-old female with past medical history of DVT/pulmonary emboli, hyperparathyroidism (status post thyroidectomy), hypothyroidism (due to thyroidectomy), hypertension, dyslipidemia, kidney stone and psoriatic arthritis came to the hospital due to left flank pain since 1 day. Pain is localized at left side, constant, sharp in nature, 6/10 which worsened with changing position. She also reports dysuria and frequency. She denies fever, nausea, vomiting, or any recent bowel habit changes. He also reports limbs numbness, for which she has an appointment with neurologist. PMHx: DVT/pulmonary emboli, hyperparathyroidism (status post thyroidectomy), hypothyroidism (due to thyroidectomy), hypertension, dyslipidemia, kidney stone and psoriatic arthritis PSHx: Thyroidectomy (due to hyperparathyroidism), knee and back surgery Family history: Not significant Social history: Ex-smoker, lives at home, denies any other drug use Home medication: Levothyroxine 25 mEq, losartan, Repatha (evolovumab, 2 times per month for dyslipidemia), Xeljanz (tofacitinib) for psoriatic arthritis Allergic history: Morphine (causing pruritus) Objective vital signs Vital Sign Date Time Temp Pulse Resp B/P (MAP) Pulse Ox O2 Delivery O2 Flow Rate FiO2 06/29/24 17:00 98.0 100 18 133/79 (97) 98 98.0 06/28/24 20:00 Room Air* 0 21 Total Intake and Output 06/28/24 06/28/24 06/29/24 14:59 22:59 06:59 Intake Total 50 ml 800 ml Balance 50 ml 800 ml medications Current Medications Medications Dose Ordered Sig/Yumiko Route Start Time Stop Time Status Last Admin Dose Admin Acetaminophen 650 mg Q6HP PRN PO 06/27/24 23:45 Ondansetron HCl 4 mg Q4HP PRN IV 06/27/24 23:45 06/28/24 23:43 4 MG Enoxaparin Sodium 40 mg DAILY SC 06/28/24 10:00 06/29/24 11:06 40 MG Amlodipine Besylate 10 mg DAILY PO 06/28/24 10:00 06/29/24 11:09 10 MG Levothyroxine Sodium 25 mcg QAM@0600 PO 06/28/24 06:00 06/29/24 05:25 25 MCG Morphine Sulfate 1 mg Q6HP PRN IV 06/27/24 23:45 Hold Tamsulosin HCl 0.4 mg QPM PO 06/28/24 18:00 06/29/24 18:34 0.4 MG Ceftriaxone Sodium 50 ml @ 100 mls/hr DAILY IV 06/28/24 13:00 06/29/24 11:09 100 MLS/HR Ketorolac Tromethamine 15 mg Q6HPRN PRN IV 06/29/24 00:00 07/04/24 00:00 06/29/24 18:35 15 MG Pantoprazole Sodium 40 mg DAILY IV 06/29/24 10:00 06/29/24 11:06 40 MG Alprazolam 0.125 mg Q8HP PRN PO 06/29/24 10:15 06/29/24 13:26 0.125 MG Docusate Sodium 100 mg BID PO 06/29/24 22:00 Examination General Appearance: Alert, Oriented X3, Cooperative, No acute distress HEENT: Atraumatic, PERRLA, EOMI, Mucous membrane moist/pink Respiratory: Clear to auscultation, Normal air movement Cardiovascular: Regular rate, Normal S1, Normal S2, No murmurs, no chest wall tenderness Abdominal: Normal bowel sounds, Soft, No tenderness, No hepatospenomegaly, No masses Extremities: No clubbing, No cyanosis, No edema, Normal pulses, No tenderness/swelling Skin: No rashes, No breakdown, No significant lesion Neuro: Normal gait, Normal speech, Strength at 5/5 X4 ext, Normal tone, Sensation intact, Cranial nerves 3-12 NL, Reflexes 2+ Psych/Mental Status: Mental status NL, Mood NL laboratory and microbiology Laboratory Tests 06/29/24 05:50 Test 06/29/24 05:50 Range/Units Serum Glucose 94 74-106 mg/dL Microbiology Date/Time Source Procedure Growth Status 06/28/24 03:58 Nose MRSA Screen - Final Complete Problem List/Assessment/Plan Problem List/Assessment/Plan Hydronephrosis, likely due to renal stone History of recurrent kidney stone History of hyperparathyroidism, status post thyroidectomy Hypothyroidism, due to thyroidectomy Abdominal CT scan shows mild left hydronephrosis without hydroureter, no definite obstructing ureteric calculi are seen, several subcentimeter nonobstructing bilateral renal calculi measuring up to 8.3 mm in the left kidney Consulted Urology: oupt ESWL IV fluid Pain control Flomax Ceftriaxone IV Normal PTH Possible DC tomorrow Hypertension: amlodipine History of dyslipidemia Psoriatic arthritis History of pulmonary embolus/DVT Anxiety: alprazolam DIET: Cardiac DVT PROPHYLAXIS: Lovenox GI PROPHYLAXIS:: Protonix CODE STATUS: Goal of care discussed for more than 18 minutes, full code DISPOSITION: Med/surge Patient's status and plan discussed with the patient. Case discussed with Dr. Mathis Plan discussed with: Patient, Other (rn) My Orders My Orders Orders - JASMYN PARKS Procedure Category Date Status Time Alprazolam Tablet PHA 06/29/24 In Process (Xanax Tablet) 10:15 Docusate Sodium PHA 06/29/24 In Process Capsule (Colace 22:00 Date of Service: Jun 29, 2024 Billing Provider: RITA MATHIS DO Common Visit Codes: [id number] INP/OBS CARE(HIGH) JASMYN PARKS Jun 29, 2024 20:35 RITA MATHSI DO Jul 01, 2024 12:10
[2024-06-29] MEDS: DOCUSATE SOD 100 MG CAP PO SCH (22:10)
[2024-06-30 01:00] VITALS: BP 112/62; PULSE 87; RESP 18; TEMP 97.3; O2SAT 99
[2024-06-30 05:00] VITALS: BP 127/61; PULSE 81; RESP 18; TEMP 97.3; O2SAT 97
[2024-06-30 08:00] VITALS: PULSE 89; RESP 18; O2SAT 94
[2024-06-30 09:10] VITALS: BP 147/66; PULSE 86; RESP 16; TEMP 97.8; O2SAT 97
[2024-06-30 09:57] VITALS: BP 117/66; TEMP 36.6
[2024-06-30] MEDS: SODIUM CHLORIDE 0.9% 500 ML IV ONE (11:45)
--- NOTE | 2024-06-30 17:40 | DVHDSRES ---
Discharge Summary Date of Admission Resident Creating Document: JASMYN PARKS RESIDENT Jun 27, 2024 at 23:35 Date of Discharge: Jun 29, 2024 Admitting Diagnosis Hydronephrosis, likely due to renal stone Labs/Diagnostic Data: Laboratory Results Test 06/29/24 05:50 06/28/24 04:50 06/27/24 18:05 06/27/24 17:00 White Blood Count 8.4 10^3/uL (4.4-10.8) Red Blood Count 4.04 10^6/uL (4.0-5.20) Hemoglobin 13.3 g/dL (12.2-16.2) Hematocrit 38.9 % (36.0-46.0) Mean Corpuscular Volume 96.1 fL (80.0-100.0) Mean Corpuscular Hemoglobin 32.9 pg (28.0-32.0) Mean Corpuscular Hemoglobin Concent 34.2 g/dL (32.0-36.0) Red Cell Distribution Width 14.0 % (11.8-14.3) Platelet Count 323 10^3/uL (140-450) Mean Platelet Volume 8.4 fL (6.9-10.8) Neutrophils (%) (Auto) 66.3 % (37.0-80.0) Lymphocytes (%) (Auto) 19.2 % (10.0-50.0) Monocytes (%) (Auto) 12.6 % (0.0-12.0) Eosinophils (%) (Auto) 0.9 % (0.0-7.0) Basophils (%) (Auto) 1.0 % (0.0-2.0) Neutrophils # (Auto) 5.6 10 ^3/uL (1.6-8.6) Lymphocytes # (Auto) 1.6 10 ^3/uL (0.4-5.4) Monocytes # (Auto) 1.1 10 ^3/uL (0-1.3) Eosinophils # (Auto) 0.1 10 ^3/uL (0-0.8) Basophils # (Auto) 0.1 10 ^3/uL (0-0.2) Nucleated Red Blood Cells 0.0 % Sodium Level 141 mmol/L (136-145) Potassium Level 4.5 mmol/L (3.5-5.1) Chloride Level 107 mmol/L (98-107) Carbon Dioxide Level 26 mmol/L (20-31) Anion Gap 8 (5-15) Blood Urea Nitrogen 15 mg/dL (9-23) Creatinine 1.05 mg/dL (0.550-1.02) Glomerular Filtration Rate Calc 58 mL/min (>90) BUN/Creatinine Ratio 14.3 (10.0-20.0) Serum Glucose 94 mg/dL (74-106) Calcium Level 9.4 mg/dL (8.7-10.4) Total Bilirubin 0.3 mg/dL (0.2-1.0) Aspartate Amino Transferase (AST) 29 U/L (13-40) Alanine Aminotransferase (ALT) 34 U/L (7-40) Alkaline Phosphatase 64 U/L (46-116) Total Protein 6.7 g/dL (5.7-8.2) Albumin 4.6 g/dL (3.2-4.8) Prothrombin Time 10.8 sec (9.3-11.8) Prothrombin Time INR 1.02 (0.9-1.15) Activated Partial Thromboplast Time 25.6 SEC (24.5-34.5) Vitamin D 25-Hydroxy 57.8 ng/mL (30.0-100) Parathyroid Hormone (Intact) 54.3 pg/mL (18.4-80.1) Magnesium Level 2.1 mg/dL (1.6-2.6) Urine Color Light-yellow (Yellow) Urine Clarity Clear (Clear) Urine pH 5.5 (5.0-9.0) Urine Specific [place] 1.012 (1.001-1.035) Urine Protein Negative (Negative) Urine Ketones Negative (Negative) Urine Blood Trace /uL (Negative) Urine Nitrite Negative (Negative) Urine Bilirubin Negative (Negative) Urine Urobilinogen Normal mg/dL (Negative) Urine Leukocyte Esterase Negative /uL (Negative) Urine RBC 4 /hpf (0 - 4) Urine Microscopic WBC 2 /HPF (0-5) Urine Squamous Epithelial Cells None seen /hpf (<5) Urine Bacteria None seen /hpf (None Seen) Urine Glucose Normal mg/dL (Normal) Urine Opiates Screen Neg (NEGATIVE) Urine Fentanyl Screen Neg (NEGATIVE) Urine Barbiturates Screen Neg (NEGATIVE) Urine Phencyclidine Screen Neg (NEGATIVE) Urine Amphetamines Screen Neg (NEGATIVE) Urine Benzodiazepines Screen Neg (NEGATIVE) Urine Cocaine Screen Neg (NEGATIVE) Urine Cannabinoids Screen Neg (NEGATIVE) Other Laboratory Tests 06/29/24 05:50 Brief Hx & Hospital Course: A 68F with a past medical history of DVT, pulmonary embolism, hyperparathyroidism (s/p thyroidectomy), hypothyroidism, hypertension, dyslipidemia, kidney stones, and psoriatic arthritis presented with acute left flank pain associated with dysuria and urinary frequency. She denied fever, nausea, vomiting, or bowel habit changes but did report bilateral limb numbness. CT imaging revealed mild left hydronephrosis without hydro-ureter and several subcentimeter nonobstructing renal calculi, including one up to 8.3 mm on the left side. Her presentation was consistent with renal colic due to nonobstructing nephrolithiasis with associated UTI. Urology was consulted and recommended outpatient ESWL. Labs were notable for normal parathyroid hormone levels. She received IV fluids, pain control, and ceftriaxone. Other chronic conditions were managed and were stable during this admission include hypertension (continued on amlodipine), dyslipidemia, psoriatic arthritis, and anxiety (on alprazolam). She remained hemodynamically stable and was started on DVT prophylaxis with Lovenox and GI prophylaxis with protonix. Her code status was discussed with the patient and she remains full code. She is to continue home medications and follow up as outpatient for definitive management of nephrolithiasis. General Appearance: Alert, Oriented X3, Cooperative, No acute distress HEENT: Atraumatic, PERRLA, EOMI, Mucous membrane moist/pink Respiratory: Clear to auscultation, Normal air movement Cardiovascular: Regular rate, Normal S1, Normal S2, No murmurs, no chest wall tenderness Abdominal: Normal bowel sounds, Soft, No tenderness, No hepatospenomegaly, No masses Extremities: No clubbing, No cyanosis, No edema, Normal pulses, No tenderness/swelling Skin: No rashes, No breakdown, No significant lesion Neuro: Normal gait, Normal speech, Strength at 5/5 X4 ext, Normal tone, Sensation intact, Cranial nerves 3-12 NL, Reflexes 2+ Psych/Mental Status: Mental status NL, Mood NL Case discussed with Dr Robles Consults/Reason for consult urology: oupt ESWL left the right to be arranged Operations or Procedures Procedure: CT CT AB PEL WO CON-NO ORAL OR IV 06/27/2024 06:11 PM Indication: flank pain Comparison Study: CT CT AB PEL WO CON-NO ORAL OR IV on DOS: 06/05/24, CT CT AB PEL WO CON-NO ORAL OR IV on DOS: 05/18/24, [facility] on DOS: 07/22/21 Technique: Axial images were obtained and reformatted in coronal and sagittal planes. All CT scans at this medical facility are performed using dose modulation techniques as appropriate to a performed exam including the following: Automated exposure control was utilized; adjustment of the MA and/or KV according to patient size; and use of iterative reconstruction technique. CT Dose: CTDI volume is 6.07 mGy. Dose-length product is 289.88 mGy*cm FINDINGS: Lower Chest: Unremarkable. Hepatobiliary: Unremarkable. Spleen: Unremarkable. Pancreas: Unremarkable. Adrenal Glands: Unremarkable. tract: The kidneys are normal in size bilaterally . Mild fullness of the left frontal pelvis. No hydroureter. Several subcentimeter nonobstructing bilateral renal calculi are seen measuring up to 8.3 mm The urinary bladder is unremarkable. GI tract: The stomach is grossly normal in appearance. No evidence of small bowel obstruction. There is sigmoid diverticulosis without diverticulitis. The appendix is normal. Lymphatics: No mesenteric, retroperitoneal or periportal lymphadenopathy. Vasculature: The abdominal aorta is normal in in caliber. Pelvic Organs: Unremarkable Bones/soft tissues: No acute abnormality. Multilevel degenerative disc disease and posterior facet arthropathy of the lumbar spine. Postoperative changes of the lower lumbar spine noted with discectomy and disc spacer placement L3-L5 levels. Other: None. IMPRESSION: 1. Stable mild left hydronephrosis without hydroureter. No definite obstructing ureteric calculi are seen. No bladder stone is identified. 2. Several subcentimeter nonobstructing bilateral renal calculi measuring up to 8.3 mm in the left kidney. Condition at Discharge: Stable Final Diagnosis/Problems List Hydronephrosis, likely due to renal stone History of recurrent kidney stone History of hyperparathyroidism, status post thyroidectomy Hypothyroidism, due to thyroidectomy Hypertension History of dyslipidemia Psoriatic arthritis History of pulmonary embolus/DVT Anxiety Discharge Disposition: Home Discharge Instruct/Medications Diet: Consistent carbohydrate, Cardiac 2g Na,low cholest Activity: Light activity Follow Up/Referral: fu with urology for procedure Medications: see prescription Discharge Statement: "Patient was advised to return to the ER or call 911 if any headaches, dizziness, shortness of breath, chest pain, abdominal pain, bleeding, fevers, or worsening of medical condition. Patient was counseled about treatment plan, medications, possible side effects, patientverbalized understanding. All questions were answered to the best of my ability. This discharge took greater then 30 minutes in planning, reviewing documentation, counseling the patient, and discussing with other team members." ASSESSMENT ASSESSMENT Assessment kidney stones JASMYN PARKS RESIDENT Jun 30, 2024 17:40
== END 2024-06-30 13:39 | disposition home or self-care (01) | DRG 694 ==
LOC: ER 16:41 → OVERFLOW 23:35 → WEST WING 06-28 16:09
PROVIDERS: ADMIT Internal Medicine; ATTEND Internal Medicine
DX: N13.2 Hydronephrosis with renal and ureteral calculous obstruction (principal); I10 Essential (primary) hypertension; L40.50 Arthropathic psoriasis, unspecified; E89.0 Postprocedural hypothyroidism; G30.9 Alzheimer's disease, unspecified; F02.80 Dementia in other diseases classified elsewhere, unspecified severity, without behavioral disturbance, psychotic disturbance, mood disturbance, and anxiety; F41.9 Anxiety disorder, unspecified; E78.5 Hyperlipidemia, unspecified; E21.3 Hyperparathyroidism, unspecified; Z87.891 Personal history of nicotine dependence; Z86.718 Personal history of other venous thrombosis and embolism; Z86.711 Personal history of pulmonary embolism; Z85.819 Personal history of malignant neoplasm of unspecified site of lip, oral cavity, and pharynx; Z79.01 Long term (current) use of anticoagulants; Z79.899 Other long term (current) drug therapy; Z88.5 Allergy status to narcotic agent; Z80.0 Family history of malignant neoplasm of digestive organs
CPT/HCPCS: 36415; 74176; 80053; 80307; 81001; 82306; 83735; 83970; 85025; 85610; 85730; 87081; 96360; G0378; J1885; J2405; J2470

== ENCOUNTER 2024-07-16 10:29 | Inpatient (IN) | payer MEDICARE ==
[~2024-07-16] VITALS: Ht 167.6 cm; Wt 54.3 kg
[~2024-07-16 10:29] MED LIST changes: -CEPH500C PO; +CIPR-173 PO; -CLIN-203 PO; -CLIN1CAP70 PO; -HYDR50CA PO; +IBUP-1453 PO; +LOSA-533 PO; -NITR-87 PO; +TAMS-35 PO
[2024-07-16 10:57] LABS: Urine Bacteria None Seen /hpf (None Seen)
--- NOTE | 2024-07-16 11:07 | ED.PDOC ---
General HPI Comments 68 y/o F, with PMHx of urolithiasis, hypertension, and arthritis presents to the ED for CC of flank pain. Patient states, that she has been experiencing left sided flank pain with associated symptoms of dysuria xdays. Patient relays, that she was recently discharged from [facility] on 06/30/24 for DX: Bilateral Renal Calculus and followed up with a Urologist for a lithotripsy however, symptoms have worsened. Patient denies hematuria, fever, chills, back pain, nausea, or vomiting. No other associated symptoms, modifiers, recent injuries or sick contacts present at this time. Chief Complaint: Flank Pain Time Seen by MD: 10:35 Primary Care Provider: IMELDA Sherman notes: Nurses Notes, Medications, Allergies Allergies: Coded Allergies: Morphine (Verified Allergy, Mild, 10/17/10) Home Meds Active Scripts Ibuprofen (Ibuprofen) 400 Mg Tab, 400 MG PO TID for 5 Days, #15 TAB Prov:JASMYN PARKS 06/29/24 Ciprofloxacin Hcl (Cipro) 500 Mg Tab, 500 MG PO BID for 5 Days, #10 TAB Prov:JASMYN PAKRS 06/29/24 Tamsulosin Hcl (Flomax) 0.4 Mg Cap, 0.4 MG PO QPM for 30 Days, #30 CAP Prov:JASMYN PARKS 06/29/24 Ondansetron Odt 4MG Tab (ZOFRAN PO) 4 Mg Tb, 4 MG PO TID PRN, #30 TAB Prn nausea/vomiting ODT TAB-DISSOLVE IN MOUTH, THEN SWALLOW Prov:ANGELINA PAIGE MD 06/05/24 Hydrocodone-Acetaminophen (Hydrocodone Bitartrate/AC 5-325 mg) 1 Tab Tab, 1 TAB PO Q6HP PRN, #20 TAB Prn breakthrough pain Prov:ANGELINA PAIGE MD 06/05/24 Phenazopyridine HCl (Phenazopyridine Hydrochol) 200 Mg Tab, 200 MG PO TID PRN, #9 TAB Prn urinary pain Prov:ANGELINA PAIGE MD 06/05/24 Warfarin Sodium (Warfarin Sodium) 3 Mg Tab, 3 MG PO DAILY for 10 Days, #10 TAB Prov:YOU CASTLE MD 03/29/22 Yeast (S. Boulardii)(S. Cerevi (Florastor) 250 Mg Cap, 250 MG PO DAILY for 30 Days, #30 CAP Prov:YOU CASTLE MD 03/29/22 Reported Medications Losartan Potassium (Losartan Potassium) 25 Mg Tab, 1 TAB PO DAILY, #90 TAB 1 Refill 06/28/24 Folic Acid (Folic Acid) 5 Mg Cap, 5 MG PO DAILY, CAP 07/21/21 Cholecalciferol (VITAMIN D3) 2,000 Unit Tab, 1 TAB PO DAILY, #30 TAB 5 Refills 07/21/21 Milnacipran Hydrochloride (Savella) 50 Mg Tab, 100 MG PO DAILY, TAB 07/21/21 Levothyroxine Sodium (Levothyroxine Sodium) 50 Mcg Tab, 50 MCG PO QAM for 30 Days, MCG 07/21/21 Tofacitinib Citrate (XELJANZ) 5 Mg Tab, 10 MG PO DAILY, TAB 07/21/21 Hydrocodone-Acetaminophen (Hydrocodone Bitartrate/AC 5-325 mg) 1 Tab Tab, 1 TAB PO DAILY, TAB 07/21/21 Tramadol Hcl (TRAMADOL HCL ER) 200 Mg Tab, 200 MG PO DAILY, TAB 07/21/21 Methotrexate (Methotrexate) 2.5 Mg Tab, 6 TAB PO QWEEKLY, MG 07/21/21 Information Source: Patient Mode of Arrival: Ambulatory Severity: Moderate Timing: Days Duration: Since onset Prehospital treatment: None Onset: Spontaneous Symptoms: Dysuria History of: Kidney stone Location: (L)Flank Modifying factors: None associated signs and symptoms: Flank Pain, Dysuria Past Medical History PAST MEDICAL HISTORY: Arthritis, HTN, Kidney Stones, Thyroid Surgical History: Thyroidectomy 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 Family History Family History: Unknown Social History Smoker: Non-Smoker Alcohol: Occasionally Drugs: Denies Drug Use Lives In: Home Constitutional: denies: chills, diaphoresis, fatigue, fever, malaise, sweats, weakness, others EENTM: denies: blurred vision, double vision, ear bleeding, ear discharge, ear drainage, ear pain, ear ringing, eye pain, eye redness, hearing loss, mouth pain, mouth swelling, nasal discharge, nose bleeding, nose congestion, nose pain, photophobia, tearing, throat pain, throat swelling, voice changes, others Respiratory: denies: cough, hemoptysis, orthopnea, SOB at rest, shortness of breath, SOB with excertion, stridor, wheezing, others Cardiovascular: denies: chest pain, dizzy spells, diaphoresis, Dyspnea on exertion, edema, irregular heart beat, left arm pain, lightheadedness, palpitations, PND, syncope, others Gastrointestinal: denies: abdomen distended, abdominal pain, blood streaked bowels, constipated, diarrhea, dysphagia, difficulty swallowing, hematemesis, melena, nausea, poor appetite, poor fluid intake, rectal bleeding, rectal pain, vomiting, others Genitourinary: reports: dysuria, flank pain; denies: abnormal vagina bleeding, burning, dyspareunia, frequency, hematuria, incontinence, pain, , vagina discharge, urgency, others Neurological: denies: dizziness, fainting, headache, left sided numbness, left sided weakness, numbness, paresthesia, pre-existing deficit, right sided numbness, right sided weakness, seizure, speech problems, tingling, tremors, weakness, others Musculoskeletal: denies: back pain, gout, joint pain, joint swelling, muscle pain, muscle stiffness, neck pain, others Integumetry: denies: bruises, change in color, change in hair/nails, dryness, laceration, lesions, lumps, rash, wounds, others Allergic/Immunocompromised: denies: Difficulty Healing, Frequent Infections, Hives, Itching, others Hematologic/Lymphatic: denies: anemia, blood clots, easy bleeding, easy bruising, swollen glands, others Endocrine: denies: excessive hunger, excessive sweating, excessive thirst, excessive urination, flushing, intolerance to cold, intolerance to heat, unexplained weight gain, unexplained weight loss, others Psychiatric: denies: anxiety, bipolar disorder, depression, hopeless, panic disorder, schizophrenia, sleepless, suicidal, others All Other Systems: Reviewed and Negative Physical Exam General Appearance: Moderate Distress HEENT: Normal ENT Inspection, Pharynx Normal, TMs Normal Neck: Full Range of Motion, Non-Tender, Normal, Normal Inspection Respiratory: Chest Non-Tender, Lungs Clear, No Accessory Muscle Use, No Respiratory Distress, Normal Breath Sounds Cardiovascular: No Edema, No JVD, No Murmur, No Gallop, Normal Peripheral Pulses, Regular Rate/Rhythm Breast Exam: Deferred Gastrointestinal: No Organomegaly, Non Tender, No Pulsatile Mass, Normal Bowel Sounds, Soft Genitalia: Deferred Pelvic: Deferred Rectal: Deferred Extremities: No calf tenderness, Normal capillary refill, Normal inspection, Normal range of motion, Non-tender, No pedal edema Musculoskeletal : Apperance: Normal Neurologic: Alert, 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 Was a procedure done?: No Differential Diagnosis Kidney stone (Female): Pyelonephritis, Urinary obstruction, Urolithiasis X-Ray, Labs, Meds, VS Vital Signs Date Time Temp Pulse Resp B/P (MAP) Pulse Ox O2 Delivery O2 Flow Rate FiO2 07/16/24 12:05 62 16 96 Room Air* 0 21 07/16/24 11:50 62 16 96 Room Air 07/16/24 11:50 97.6 62 16 145/88 (107) 96 97.6 07/16/24 10:45 98.9 108 19 166/86 (112) 98 98.9 Lab Test 07/16/24 11:32 07/16/24 10:43 Range/Units White Blood Count 9.5 4.4-10.8 10^3/uL Red Blood Count 4.64 4.0-5.20 10^6/uL Hemoglobin 15.0 12.2-16.2 g/dL Hematocrit 44.1 36.0-46.0 % Mean Corpuscular Volume 95.0 80.0-100.0 fL Mean Corpuscular Hemoglobin 32.3 H 28.0-32.0 pg Mean Corpuscular Hemoglobin Concent 34.0 32.0-36.0 g/dL Red Cell Distribution Width 13.6 11.8-14.3 % Platelet Count 357 140-450 10^3/uL Mean Platelet Volume 7.6 6.9-10.8 fL Neutrophils (%) (Auto) 66.6 37.0-80.0 % Lymphocytes (%) (Auto) 18.9 10.0-50.0 % Monocytes (%) (Auto) 12.4 H 0.0-12.0 % Eosinophils (%) (Auto) 0.7 0.0-7.0 % Basophils (%) (Auto) 1.4 0.0-2.0 % Neutrophils # (Auto) 6.3 1.6-8.6 10 ^3/uL Lymphocytes # (Auto) 1.8 0.4-5.4 10 ^3/uL Monocytes # (Auto) 1.2 0-1.3 10 ^3/uL Eosinophils # (Auto) 0.1 0-0.8 10 ^3/uL Basophils # (Auto) 0.1 0-0.2 10 ^3/uL Nucleated Red Blood Cells 0.0 % Sodium Level 142 136-145 mmol/L Potassium Level 4.3 3.5-5.1 mmol/L Chloride Level 107 98-107 mmol/L Carbon Dioxide Level 28 20-31 mmol/L Anion Gap 7 5-15 Blood Urea Nitrogen 19 9-23 mg/dL Creatinine 0.99 0.550-1.02 mg/dL Glomerular Filtration Rate Calc 62 >90 mL/min BUN/Creatinine Ratio 19.2 10.0-20.0 Serum Glucose 81 74-106 mg/dL Calcium Level 9.9 8.7-10.4 mg/dL Urine Color Yellow Yellow Urine Clarity Clear Clear Urine pH 6.5 5.0-9.0 Urine Specific [place] 1.013 1.001-1.035 Urine Protein Negative Negative Urine Ketones Negative Negative Urine Blood Negative Negative /uL Urine Nitrite Negative Negative Urine Bilirubin Negative Negative Urine Urobilinogen Normal Negative mg/dL Urine Leukocyte Esterase Negative Negative /uL Urine RBC 1 0 - 4 /hpf Urine Microscopic WBC 3 0-5 /HPF Urine Squamous Epithelial Cells Few <5 /hpf Urine Bacteria None seen None Seen /hpf Urine Glucose Normal Normal mg/dL Current Medications Medications (Trade) Dose Ordered Sig/Yumiko Route Start Time Stop Time Status Last Admin Ondansetron HCl (Zofran) 4 mg ONCE ONCE IV 07/16/24 11:30 07/16/24 11:31 DC 07/16/24 12:10 Sodium Chloride 1,000 ml @ 1,000 mls/hr Q1H ONCE IVB 07/16/24 11:30 07/16/24 12:29 DC 07/16/24 12:09 Ketorolac Tromethamine (Toradol Injection) 30 mg ONCE ONCE IV 07/16/24 11:30 07/16/24 11:31 DC 07/16/24 12:10 [place] [id number] Ph: [phone] DIAGNOSTIC IMAGING Diagnostic Imaging Report : [id number] Signed PATIENT: GABRIELE VELIZ SACCT: [id number] UNIT: [id number] : 1955 LOC: ER ROOM / BED: / AGE / SEX: 68 / F ADM STATUS: REG ER SERVICE 1118 ORDERING PHYSICIAN: JAKE DAUGHERTY MD PROCEDURE(s): ABPL - CT AB PEL WO CON-NO ORAL OR IV REASON: stone ORDER NUMBER(s): [id number], ACCESSION NUMBER(s): [id number] EXAM: CT Abdomen and Pelvis Without Intravenous Contrast CLINICAL INDICATION: stone TECHNIQUE: Axial computed tomography images of the abdomen and pelvis without intravenous contrast. This CT exam was performed using one or more of the following dose reduction techniques: automated exposure control, adjustment of the mA and/or kV according to patient size, and/or use of iterative reconstruction technique. CONTRAST: RADIATION DOSE: CTDIvol = 6.46 mGy, DLP = 296.16 mGy-cm COMPARISON: CT CT AB PEL WO CON-NO ORAL OR IV on DOS: 06/27/24, CT CT AB PEL WO CON-NO ORAL OR IV on DOS: 06/05/24, CT CT AB PEL WO CON-NO ORAL OR IV on DOS: 05/18/24, [facility] on DOS: 07/22/21 FINDINGS: LUNG BASES: Unremarkable. No mass. No consolidation. ABDOMEN: LIVER: Unremarkable. GALLBLADDER AND BILE DUCTS: Unremarkable. No calcified stones. No ductal dilation. PANCREAS: Unremarkable. No ductal dilation. SPLEEN: Unremarkable. No splenomegaly. ADRENALS: Unremarkable. No mass. KIDNEYS AND URETERS: Bilateral renal pelvic calculi, largest measuring up to 4 mm without obstruction. STOMACH AND BOWEL: Fecal retention in the colon consistent with constipation. No obstruction. No mucosal thickening. PELVIS: APPENDIX: No findings to suggest acute appendicitis. BLADDER: Unremarkable. No stones. REPRODUCTIVE: Unremarkable as visualized. ABDOMEN and PELVIS: INTRAPERITONEAL SPACE: Unremarkable. No free air. No significant fluid col lection. BONES/JOINTS: Degenerative disc disease throughout the lumbar spine. Degenerative facet arthropathy throughout the lumbar spine, most prominent in the lower lumbar spine. No acute fracture. No dislocation. SOFT TISSUES: Umbilical hernia containing fat. VASCULATURE: Unremarkable. No abdominal aortic aneurysm. LYMPH NODES: Unremarkable. No enlarged lymph nodes. OTHER FINDINGS: . IMPRESSION: 1. Bilateral renal pelvic calculi, largest measuring up to 4 mm without obstruction. 2. Fecal retention in the colon consistent with constipation. 3. Umbilical hernia containing fat. 4. Degenerative changes lumbar spine as described. ATED BY: ALPHONSE HARRIS MD DICTATED DATE/TIME: 07/16/24 1236 SIGNED BY: ALPHONSE HARRIS MD SIGNED DATE/TIME: 07/16/24 1236 CC: Patient alert. Complaining of flank pain. Vitals stable. Answering questions. History of kidney stone. Establish intravenous access. Was given fluids. Blood pressure elevated. Pain medication may resolve the blood pressure. Waiting for lithotripsy. Was given Toradol. Reviewed her previous visit. Explained to the patient. Continue monitoring. Time of 1ST Reevaluation: 11:05 Reevaluation 1ST: Unchanged Patient Education/Counseling: Diagnosis, Treatment Family Education/Counseling: No Family Present Departure 1 Departure Time of Disposition: 11:17 Impression: Primary Impression: Bilateral kidney stones Disposition: ADMITTED INPATIENT Admit to: Med Surg Condition: Guarded Critical Care Note Critical Care Time?: No Stability Stability form required: No Heart Score Heart Score: Heart Score Response (Comments) Value History N/A 0 EKG N/A 0 Age N/A 0 Risk Factors N/A 0 Troponin N/A 0 Total 0 I personally scribed for JAKE DAUGHERTY MD ([email or web address]) on 07/16/24 at 11:07. Electronically submitted by Rosemary Ospina ([email or web address]). I personally scribed for JAKE DAUGHERTY MD ([email or web address]) on 07/16/24 at 13:04. Electronically submitted by Rosemary Ospina ([email or web address]). JAKE DAUGHERTY MD Jul 16, 2024 11:07
[2024-07-16 11:10] LABS: Urine Blood Negative /uL (Negative); Urine Clarity Clear (Clear); Urine Color Yellow (Yellow); Urine Protein, UAD Negative (Negative); Urine Specific Gravity 1.013 (1.001-1.035); Urine Squamous Epithelial Cell FEW /hpf (<5); Urine Urobilinogen Normal (Negative); Urine WBC 3 /HPF (0-5); Urine pH 6.5 (5.0-9.0)
[2024-07-16 11:37] LABS: Basophils # (auto) 0.1 10 ^3/uL (0-0.2); Basophils % (auto) 1.4 % (0.0-2.0); Eosinophils # (auto) 0.1 10 ^3/uL (0-0.8); Eosinophils % (auto) 0.7 % (0.0-7.0); Hematocrit 44.1 % (36.0-46.0); Lymphocytes # (auto) 1.8 10 ^3/uL (0.4-5.4); Lymphocytes % (auto) 18.9 % (10.0-50.0); Mean Corpuscular Hemoglobin 32.3 pg (28.0-32.0); Monocytes # (auto) 1.2 10 ^3/uL (0-1.3); Monocytes % (auto) 12.4 % (0.0-12.0); Neutrophils # (auto) 6.3 10 ^3/uL (1.6-8.6); Neutrophils % (auto) 66.6 % (37.0-80.0); Platelet Count (auto) 357 10^3/uL (140-450); Red Blood Cells 4.64 10^6/uL (4.0-5.20); Red Cell Distribution Width 13.6 % (11.8-14.3); White Blood Cell 9.5 10^3/uL (4.4-10.8)
[2024-07-16 11:48] LABS: Chloride 107 mmol/L (98-107); Potassium 4.3 mmol/L (3.5-5.1); Sodium 142 mmol/L (136-145)
[2024-07-16 11:49] LABS: Anion Gap 7 (5-15); Calcium 9.9 mg/dL (8.7-10.4); Carbon Dioxide 28 mmol/L (20-31)
[2024-07-16 11:54] LABS: BUN/Creatinine Ratio 19.2 (10.0-20.0); Blood Urea Nitrogen 19 mg/dL (9-23); Glucose 81 mg/dL (74-106)
[2024-07-16 12:05] VITALS: PULSE 62; RESP 16; O2SAT 96
[2024-07-16] MEDS: SODIUM CHLORIDE 0.9% 1,000 ML IVB ONE (12:09)
[2024-07-16] MEDS: KETOROLAC TROMETH 30 MG/ML 1ML VIAL IV ONE (12:10)
[2024-07-16] MEDS: ONDANSETRON HCL 4 MG/2 ML VIAL IV ONE (12:10)
--- NOTE | 2024-07-16 12:38 | DVH ---
EXAM: CT Abdomen and Pelvis Without Intravenous Contrast CLINICAL INDICATION: stone TECHNIQUE: Axial computed tomography images of the abdomen and pelvis without intravenous contrast. This CT exam was performed using one or more of the following dose reduction techniques: automated exposure control, adjustment of the mA and/or kV according to patient size, and/or use of iterative r econstruction technique. CONTRAST: RADIATION DOSE: CTDIvol = 6.46 mGy, DLP = 296.16 mGy-cm COMPARISON: CT CT AB PEL WO CON-NO ORAL OR IV on DOS: 06/27/24, CT CT AB PEL WO CON-NO ORAL OR IV on DOS: 06/05/24, CT CT AB PEL WO CON-NO ORAL OR IV on DOS: 05/18/24, [facility] on DOS: 07/22/21 FINDINGS: LUNG BASES: Unremarkable. No mass. No consolidation. ABDOMEN: LIVER: Unremarkable. GALLBLADDER AND BILE DUCTS: Unremarkable. No calcified stones. No ductal dilation. PANCREAS: Unremarkable. No ductal dilation. SPLEEN: Unremarkable. No splenomegaly. ADRENALS: Unremarkable. No mass. KIDNEYS AND URETERS: Bilateral renal pelvic calculi, largest measuring up to 4 mm without obstructi on. STOMACH AND BOWEL: Fecal retention in the colon consistent with constipation. No obstruction. No mucosal thickening. PELVIS: APPENDIX: No findings to suggest acute appendicitis. BLADDER: Unremarkable. No stones. REPRODUCTIVE: Unremarkable as visualized. ABDOMEN and PELVIS: INTRAPERITONEAL SPACE: Unremarkable. No free air. No significant fluid collection. BONES/JOINTS: Degenerative disc disease throughout the lumbar spine. Degenerative facet arthropath y throughout the lumbar spine, most prominent in the lower lumbar spine. No acute fracture. No disl ocation. SOFT TISSUES: Umbilical hernia containing fat. VASCULATURE: Unremarkable. No abdominal aortic aneurysm. LYMPH NODES: Unremarkable. No enlarged lymph nodes. OTHER FINDINGS: . IMPRESSION: 1. Bilateral renal pelvic calculi, largest measuring up to 4 mm without obstruction. 2. Fecal retention in the colon consistent with constipation. 3. Umbilical hernia containing fat. 4. Degenerative changes lumbar spine as described.
[2024-07-16] MEDS ORDERED: KETOROLAC TROMETH 30 MG/ML 1ML VIAL IV PRN (16:30)
[2024-07-16] MEDS ORDERED: SODIUM CHLORIDE 0.9% 1,000 ML IV SCH (16:30)
[2024-07-16] MEDS ORDERED: ACETAMINOPHEN 325 MG TAB PO PRN (16:30)
[2024-07-16] MEDS: HYDROcodone-ACET 10/325MG TAB PO ONE (16:39)
[2024-07-16] MEDS ORDERED: METHOTREXATE 2.5 MG TAB PO SCH (17:15)
[2024-07-16] MEDS: SODIUM CHLORIDE 0.9% 1,000 ML IV SCH (17:15)
--- NOTE | 2024-07-16 17:42 | DVHHP2 ---
History of Present Illness Reason for Visit: FLANK PAIN DUE TO BILATERAL RENAL UROLITHIASIS History of Present Illness This is a 68-year-old female with history of hypertension, arthritis, kidney stone and parathyroid issues who presents to ED for chief complaint of left- sided flank pain associated with dysuria that has been progressively getting worse. The patient Relates that she was recently discharged from this facility on 06/30/2024 for the same diagnosis of bilateral renal calculus and followed up with a urologist for possible lithotripsy however no clear treatment planned has been informed to the patient. When speaking with the patient about the plan of care, she expressed her frustration in not getting proper attention to her symptoms that have progressively gotten worse. Due to her concern of her symptoms she would like to be further evaluated and treated. The patient will be admitted by the hospitalist team to the medical-surgical unit. The patient denies fever, chills, headache, dizziness, palpitation, chest pain, shortness of breath, nausea, vomiting, abdominal pain, diarrhea, constipation and other associated symptoms. The plan has been discussed with the patient and primary RN in which all questions concerns have been addressed. Cardiovascular: HTN Musculoskeletal: Other (Arthritis) Renal/: Other (Kidney stone) Past Medical History Parathyroid issues Chronic pain syndrome Past Surgical History Partial thyroidectomy Total right knee replacement Lumbar surgery L3-L5 Smoke: No ALCOHOL: occassional Drugs: None Lives: with Family Domestic Violence: Neg Review of Systems Genitourinary: Dysuria, Other (Left flank pain) Allergies: Coded Allergies: Morphine (Verified Allergy, Mild, 10/17/10) Medications Current Medications Medications Dose Ordered Sig/Yumiko Route Start Time Stop Time Status Last Admin Dose Admin Ketorolac Tromethamine 15 mg Q6HPRN PRN IV 07/16/24 16:30 07/21/24 16:29 Hold Acetaminophen 650 mg Q6HP PRN PO 07/16/24 16:30 Sodium Chloride 1,000 ml @ 60 mls/hr [id number] IV 07/16/24 17:15 Acetaminophen/ Hydrocodone Bitart 1 tab Q4HP PRN PO 07/16/24 17:15 Ibuprofen 400 mg TID PO 07/16/24 22:00 UNV Levothyroxine Sodium 50 mcg QAM PO 07/17/24 07:00 UNV Losartan Potassium 25 mg DAILY PO 07/17/24 10:00 UNV Methotrexate 15 mg QWEEKLY PO 07/16/24 17:15 UNV Tamsulosin HCl 0.4 mg QPM PO 07/16/24 18:00 UNV Saccharomyces Sergeyulardii 250 mg DAILY PO 07/17/24 10:00 UNV Patient Own Medication 1 tab DAILY PO 07/17/24 10:00 UNV Patient Own Medication 5 mg DAILY PO 07/17/24 10:00 UNV Patient Own Medication 100 mg DAILY PO 07/17/24 10:00 UNV Patient Own Medication 10 mg DAILY PO 07/17/24 10:00 UNV Patient Own Medication 200 mg DAILY PO 07/17/24 10:00 UNV Exam Vital Signs Vital Signs Date Time Temp Pulse Resp B/P (MAP) Pulse Ox O2 Delivery O2 Flow Rate FiO2 07/16/24 16:49 97.8 88 20 162/103 (122) 97 97.8 07/16/24 12:05 Room Air* 0 21 General Appearance: Alert, Oriented X3, Cooperative, mild distress HEENT: Atraumatic, PERRLA, Mucous membr. moist/pink Respiratory: Clear to auscultation, Normal air movement Cardiovascular: Normal S1, Normal S2, No murmurs Abdominal: Normal bowel sounds, Soft, No hepatospenomegaly, No masses Extremities: No clubbing, No cyanosis, No edema, Normal pulses, No tenderness/swelling Skin: No rashes, No breakdown Neuro: Normal gait, Normal speech, Strength at 5/5 X4 ext, Normal tone, Sensation intact, Cranial nerves 3-12 NL, Reflexes 2+ Psych/Mental Status: Mental status NL, Mood NL Labs/Xrays Labs Test 07/16/24 11:32 07/16/24 10:43 Range/Units White Blood Count 9.5 4.4-10.8 10^3/uL Red Blood Count 4.64 4.0-5.20 10^6/uL Hemoglobin 15.0 12.2-16.2 g/dL Hematocrit 44.1 36.0-46.0 % Mean Corpuscular Volume 95.0 80.0-100.0 fL Mean Corpuscular Hemoglobin 32.3 H 28.0-32.0 pg Mean Corpuscular Hemoglobin Concent 34.0 32.0-36.0 g/dL Red Cell Distribution Width 13.6 11.8-14.3 % Platelet Count 357 140-450 10^3/uL Mean Platelet Volume 7.6 6.9-10.8 fL Neutrophils (%) (Auto) 66.6 37.0-80.0 % Lymphocytes (%) (Auto) 18.9 10.0-50.0 % Monocytes (%) (Auto) 12.4 H 0.0-12.0 % Eosinophils (%) (Auto) 0.7 0.0-7.0 % Basophils (%) (Auto) 1.4 0.0-2.0 % Neutrophils # (Auto) 6.3 1.6-8.6 10 ^3/uL Lymphocytes # (Auto) 1.8 0.4-5.4 10 ^3/uL Monocytes # (Auto) 1.2 0-1.3 10 ^3/uL Eosinophils # (Auto) 0.1 0-0.8 10 ^3/uL Basophils # (Auto) 0.1 0-0.2 10 ^3/uL Nucleated Red Blood Cells 0.0 % Sodium Level 142 136-145 mmol/L Potassium Level 4.3 3.5-5.1 mmol/L Chloride Level 107 98-107 mmol/L Carbon Dioxide Level 28 20-31 mmol/L Anion Gap 7 5-15 Blood Urea Nitrogen 19 9-23 mg/dL Creatinine 0.99 0.550-1.02 mg/dL Glomerular Filtration Rate Calc 62 >90 mL/min BUN/Creatinine Ratio 19.2 10.0-20.0 Serum Glucose 81 74-106 mg/dL Calcium Level 9.9 8.7-10.4 mg/dL Urine Color Yellow Yellow Urine Clarity Clear Clear Urine pH 6.5 5.0-9.0 Urine Specific [place] 1.013 1.001-1.035 Urine Protein Negative Negative Urine Ketones Negative Negative Urine Blood Negative Negative /uL Urine Nitrite Negative Negative Urine Bilirubin Negative Negative Urine Urobilinogen Normal Negative mg/dL Urine Leukocyte Esterase Negative Negative /uL Urine RBC 1 0 - 4 /hpf Urine Microscopic WBC 3 0-5 /HPF Urine Squamous Epithelial Cells Few <5 /hpf Urine Bacteria None seen None Seen /hpf Urine Glucose Normal Normal mg/dL ORDERING PHYSICIAN: JAKE DAUGHERTY MD PROCEDURE(s): ABPL - CT AB PEL WO CON-NO ORAL OR IV REASON: stone ORDER NUMBER(s): [id number], ACCESSION NUMBER(s): [id number] EXAM: CT Abdomen and Pelvis Without Intravenous Contrast CLINICAL INDICATION: stone TECHNIQUE: Axial computed tomography images of the abdomen and pelvis without intravenous contrast. This CT exam was performed using one or more of the following dose reduction techniques: automated exposure control, adjustment of the mA and/or kV according to patient size, and/or use of iterative r econstruction technique. CONTRAST: RADIATION DOSE: CTDIvol = 6.46 mGy, DLP = 296.16 mGy-cm COMPARISON: CT CT AB PEL WO CON-NO ORAL OR IV on DOS: 06/27/24, CT CT AB PEL WO CON-NO ORAL OR IV on DOS: 06/05/24, CT CT AB PEL WO CON-NO ORAL OR IV on DOS: 05/18/24, [facility] on DOS: 07/22/21 FINDINGS: LUNG BASES: Unremarkable. No mass. No consolidation. ABDOMEN: LIVER: Unremarkable. GALLBLADDER AND BILE DUCTS: Unremarkable. No calcified stones. No ductal dilation. PANCREAS: Unremarkable. No ductal dilation. SPLEEN: Unremarkable. No splenomegaly. ADRENALS: Unremarkable. No mass. KIDNEYS AND URETERS: Bilateral renal pelvic calculi, largest measuring up to 4 mm without obstruction. STOMACH AND BOWEL: Fecal retention in the colon consistent with constipation. No obstruction. No mucosal thickening. PELVIS: APPENDIX: No findings to suggest acute appendicitis. BLADDER: Unremarkable. No stones. REPRODUCTIVE: Unremarkable as visualized. ABDOMEN and PELVIS: INTRAPERITONEAL SPACE: Unremarkable. No free air. No significant fluid collection. BONES/JOINTS: Degenerative disc disease throughout the lumbar spine. Degenerative facet arthropathy throughout the lumbar spine, most prominent in the lower lumbar spine. No acute fracture. No dislocation. SOFT TISSUES: Umbilical hernia containing fat. VASCULATURE: Unremarkable. No abdominal aortic aneurysm. LYMPH NODES: Unremarkable. No enlarged lymph nodes. OTHER FINDINGS: . IMPRESSION: 1. Bilateral renal pelvic calculi, largest measuring up to 4 mm without obstruction. 2. Fecal retention in the colon consistent with constipation. 3. Umbilical hernia containing fat. 4. Degenerative changes lumbar spine as described. ATED BY: ALPHONSE COULTER MD DICTATED DATE/TIME: 07/16/24 1236 SIGNED BY: ALPHONSE COULTER MD SIGNED DATE/TIME: 07/16/24 1236 CC: Assessment/Plan Assessment/Plan Left flank pain due to bilateral urolithiasis-patient with chief complaint of left-sided flank pain associated with dysuria for one week Recently discharged from this facility on 06/30/2024 She followed up with urologist for possible lithotripsy however no plan was clearly discussed Admit to medical-surgical unit Reviewed CBC which is normal Reviewed BMP which is normal Reviewed urinalysis which is normal Reviewed CT abdomen/pelvis shows bilateral renal calculi 4 mm without obstruction/fecal retention with constipation IV Toradol now and p.r.n. for pain [place] as needed for pain Continue Flomax as prescribed Consult urologist for evaluation and recommendation Chronic pain syndrome status post laminectomy [place] as needed for pain Continue prescribed tramadol Hypothyroidism status post partial thyroidectomy Continue levothyroxine as prescribed Hypertension Continue losartan as prescribed Continue to monitor Reconcile home medication Coumadin per pharmacy DVT prophylaxis PUD prophylaxis not indicated no history of GERD Labs in a.m. Discussed plan of care with the patient in which all questions concerns have been addressed Plan discussed with: Patient My Orders Orders - GRZEGORZ RAWLS FIXTURE RELAMPER Procedure Category Date Status Time Ketorolac Injection PHA 07/16/24 In Process (Toradol Injection) 16:30 Admit ADMIT 07/16/24 Transmitted 16:21 2 Gm Sodium Diet DIET 07/16/24 Transmitted Dinner Complete Blood Count LAB 07/17/24 Verified 04:00 Comprehensive LAB 07/17/24 Verified Metabolic Panel 04:00 Condition: Fair NAN 07/16/24 In Process 16:21 Acetaminophen Tablet PHA 07/16/24 In Process (Tylenol Tablet) 16:30 Bedrest With Bathroom NAN 07/16/24 In Process Privileg 16:21 * Urology Consult CONS 07/16/24 Transmitted 17:02 Sodium Chloride 0.9% PHA 07/16/24 In Process 17:15 Hydrocodone-Acet PHA 07/16/24 In Process 5/325mg Tab ([place] 17:15 Ibuprofen Tablet PHA 07/16/24 Logged (Motrin Tablet) 22:00 Levothyroxine Tablet PHA 07/17/24 Logged (Synthroid Tablet) 07:00 Losartan Tablet PHA 07/17/24 Logged (Cozaar Tablet) 10:00 Methotrexate PHA 07/16/24 Logged (Methotrexate) 17:15 Tamsulosin PHA 07/16/24 Logged Hydrochloride (Flomax) 18:00 Florastor (S. PHA 07/17/24 Logged Boulardii) (Florastor) 10:00 (Nf) Cholecalciferol PHA 07/17/24 Logged (Vitamin D3) 10:00 (Nf) Folic Acid PHA 07/17/24 Logged 10:00 (Nf) Milnacipran PHA 07/17/24 Logged Hydrochloride 10:00 (Nf) Tofacitinib PHA 07/17/24 Logged Citrate (Xeljanz) 10:00 (Nf) Tramadol Hcl PHA 07/17/24 Logged (Tramadol Hcl Er) 10:00 Coumadin Per Pharmacy NAN 07/16/24 In Process Protcol 17:07 Date of Service: Jul 16, 2024 Billing Provider: GRZEGORZ RAWLS Common Visit Codes: [id number] INP/OBS CARE (HIGH) GRZEGORZ RAWLS Jul 16, 2024 17:42
[2024-07-16] MEDS: TAMSULOSIN HYDROCHLORIDE 0.4 MG CAP PO SCH (18:40)
[2024-07-16 20:35] VITALS: BP 119/62; PULSE 92; RESP 20; TEMP 98.4; O2SAT 97
[2024-07-16] MEDS: IBUPROFEN 400 MG TAB PO SCH (22:00)
[2024-07-16] MEDS: HYDROcodone-ACET 5/325MG TAB PO PRN (22:18)
[2024-07-16 23:00] VITALS: BP 119/62; PULSE 92; RESP 20; TEMP 98.4; O2SAT 97
[2024-07-17 01:00] VITALS: BP 124/63; PULSE 81; RESP 18; TEMP 98.3; O2SAT 96
[2024-07-17 05:00] VITALS: BP 130/55; PULSE 90; RESP 20; TEMP 97.7; O2SAT 96
[2024-07-17] MEDS: LEVOTHYROXINE SODIUM 50 MCG TAB PO SCH (05:23)
[2024-07-17 07:00] LABS: Basophils # (auto) 0.1 10 ^3/uL (0-0.2); Eosinophils # (auto) 0.1 10 ^3/uL (0-0.8); Eosinophils % (auto) 1.4 % (0.0-7.0); Hematocrit 38.5 % (36.0-46.0); Hemoglobin 13.1 g/dL (12.2-16.2); Lymphocytes % (auto) 20.7 % (10.0-50.0); Mean Corpuscular Hemoglobin 32.8 pg (28.0-32.0); Mean Corpuscular Volume 96.4 fL (80.0-100.0); Monocytes # (auto) 1.1 10 ^3/uL (0-1.3); Monocytes % (auto) 11.6 % (0.0-12.0); Neutrophils # (auto) 6.3 10 ^3/uL (1.6-8.6); Neutrophils % (auto) 65.3 % (37.0-80.0); Platelet Count (auto) 311 10^3/uL (140-450); White Blood Cell 9.7 10^3/uL (4.4-10.8)
[2024-07-17 07:16] LABS: Alanine Aminotransferase 37 U/L (7-40); Albumin 4.2 g/dL (3.2-4.8); Alkaline Phosphatase 65 U/L (46-116); Anion Gap 4 (5-15); Aspartate Aminotransferase 23 U/L (13-40); Bilirubin, Total 0.3 mg/dL (0.2-1.0); Blood Urea Nitrogen 19 mg/dL (9-23); Calcium 8.9 mg/dL (8.7-10.4); Carbon Dioxide 27 mmol/L (20-31); Chloride 109 mmol/L (98-107); Glucose 105 mg/dL (74-106); Potassium 5.2 mmol/L (3.5-5.1); Sodium 140 mmol/L (136-145)
[2024-07-17] MEDS: FLORASTOR (S. BOULARDII) 250 MG CAP PO SCH (10:00)
[2024-07-17] MEDS: [UNRECOGNIZED DRUG - OTHER] PO SCH (10:00)
[2024-07-17] MEDS ORDERED: ENOXAPARIN SOD 40 MG/0.4 ML SYRINGE SC SCH (10:00)
[2024-07-17] MEDS ORDERED: FOLIC ACID 5 MG PO SCH (10:00)
[2024-07-17] MEDS: CHOLECALCIFEROL (VITD3) 1,000UNIT=25mCg TAB PO SCH (10:10)
[2024-07-17] MEDS: LOSARTAN POTASSIUM 25 MG TAB PO SCH (10:11)
--- NOTE | 2024-07-17 15:01 | DVH ---
Date: 07/17/2024 01:25 PM Examination: XY KUB ABDOMEN SINGLE VIEW History: Left kidney stone previous image 8mm Comparison: None TECHNIQUE: Frontal views of the abdomen was obtained. FINDINGS: Bowel gas pattern is unremarkable. The lung bases are unremarkable. No acute osseous abnormality identified. IMPRESSION: Nonobstructive bowel gas pattern. Large stool burden. Multiple stable renal calculi overlying the left renal shadow.
--- NOTE | 2024-07-17 15:03 | DVH ---
INDICATION: R/O hydronephrosis TECHNIQUE: Multiple real-time sonographic images of the kidneys and bladder were obtained. COMPARISON: None FINDINGS: The right kidney measures 8 cm in length, which is normal in size. There is normal echogeni city of the right kidney. No hydronephrosis. The left kidney measures 9 cm in length, which is normal in size. There is normal echogenicity of the left kidney. No hydronephrosis. Bilateral renal calculi measuring up to 7 mm in the right kidney and 1 cm in the left kidney. IMPRESSION: Bilateral nonobstructing renal calculi.
[2024-07-17] MEDS: DEXTROSE (50%) 50ML SYRG IV ONE (15:41)
[2024-07-17] MEDS: InsuLIN REG 1unit/0.01ml Soln (100units/ml) IV ONE (15:45)
[2024-07-17] MEDS ORDERED: ACETAMINOPHEN 325 MG TAB PO PRN (15:45)
[2024-07-17] MEDS: FUROSEMIDE 20 MG/2 ML VIAL IV ONE (15:46)
--- NOTE | 2024-07-17 15:50 | DVHPNRES ---
Progress Note Date Seen: Jul 17, 2024 Resident Creating Document: FORTINO BAPTISTE RESIDENT Has the PT tested + for MRSA If YES, has PT been informed?: No Medical Necessity Reason Pt with a Central, PICC or Fol: No Subjective Review of Systems This is a 68-year-old female with past medical history of hypertension, previous kidney stones, arthritis, who presented to the ED with chief complaint of left- sided flank pain radiating to the left lower quadrant. Patient reports that she was recently discharged from this facility 2-3 weeks ago due to similar symptoms and was diagnosed with left-sided kidney stones in which she was instructed to follow-up with Urology as an outpatient for waveshock lithotripsy. Patient described the pain as a 7/10 on the pain scale located in the left lower back radiating to the left flank and left lower quadrant. Patient states that pain was recently getting worse requiring to come back to the ED. patient also reported that she followed up with Urology as an outpatient and she was likely to be scheduled for lithotripsy but symptoms got worse previous to procedure. Patient had a previous KUB performed as an outpatient showing a left-sided kidney stone of 8 mm. Upon admission, the patient had a CT scan of the abdomen and pelvis without contrast that showed bilateral renal pelvic calculi and that the largest one was measuring 4 mm without obstruction. Despite of discrepancy of both studies, upon my examination the patient is having significant left- sided flank pain. We ordered a KUB and renal ultrasound for further assessment of nephrolithiasis. Patient was started on fluids, tamsulosin and urology was consulted. The patient will be admitted for further assessment and management. Patient was seen and examined at bedside. Patient is alert and oriented in person, place and time and is providing pertinent history. Patient states that recently she was 2-3 weeks ago at this facility where she was diagnosed with an 8 mm left-sided kidney stone and was discharged home to scheduled lithotripsy with Urology as an outpatient. Due to worsening of symptoms patient is now in the ED but CT scan of the abdomen is showing 4 mm calculi that is nonobstructing. We consulted Urology for further assessment and management since the patient has been having chronic left sided back pain and has visited ED a couple of times for similar reasons. We will continue IV fluids at 60 cc/hour, tamsulosin 0.4 mg daily, we will do strain urine for stones and wait for urology evaluation. Patient was also anxious for which one dose of Ativan was given. ROS Constitutional: Denies weight loss, fever and chills. HEENT: Denies changes in vision and hearing. Respiratory: Denies shortness of breath and cough Cardiovascular: Denies chest discomfort or palpitations GI: Denies abdominal pain, nausea, vomiting and diarrhea. : Patient reports left-sided flank pain radiating to the left lower quadrant associated with dysuria. Denies urgency or incontinence. Musculoskeletal: Denies myalgias and joint pain Skin: Denies rash and pruritus. Neurological: Denies dizziness, headache, vision or hearing problems Objective vital signs Vital Sign Date Time Temp Pulse Resp B/P (MAP) Pulse Ox O2 Delivery O2 Flow Rate FiO2 07/17/24 10:11 145/61 07/17/24 06:24 98.4 07/17/24 05:00 90 20 96 07/16/24 12:05 Room Air* 0 21 medications Current Medications Medications Dose Ordered Sig/Yumiko Route Start Time Stop Time Status Last Admin Dose Admin Ketorolac Tromethamine 15 mg Q6HPRN PRN IV 07/16/24 16:30 07/21/24 16:29 Hold Acetaminophen 650 mg Q6HP PRN PO 07/16/24 16:30 Sodium Chloride 1,000 ml @ 60 mls/hr [id number] IV 07/16/24 17:15 07/17/24 10:10 60 MLS/HR Acetaminophen/ Hydrocodone Bitart 1 tab Q4HP PRN PO 07/16/24 17:15 07/17/24 03:06 1 TAB Ibuprofen 400 mg TID PO 07/16/24 22:00 07/17/24 14:15 400 MG Levothyroxine Sodium 50 mcg QAM PO 07/17/24 07:00 07/17/24 05:23 50 MCG Losartan Potassium 25 mg DAILY PO 07/17/24 10:00 07/17/24 10:11 25 MG Tamsulosin HCl 0.4 mg QPM PO 07/16/24 18:00 07/16/24 18:40 0.4 MG Saccharomyces Boulardii 250 mg DAILY PO 07/17/24 10:00 Cholecalciferol 2,000 unit DAILY PO 07/17/24 10:00 4/20/25 10:10 2,000 UNIT Patient Own Medication 100 mg DAILY PO 07/17/24 10:00 Patient Own Medication 10 mg DAILY PO 07/17/24 10:00 Patient Own Medication 200 mg DAILY PO 07/17/24 10:00 Examination Physical Examination General: Patient alert and oriented in person, place and time. Patient following commands. HEENT: Normocephalic, atraumatic, moist mucous membranes Respiratory/pulmonary: Clear lungs bilaterally, no associated crackles or wheezes. Cardiovascular: Normal heart sounds S1 and S2 with no associated murmurs Abdomen: Abdomen nondistended, there positive left-sided costovertebral angle tenderness and pain in the left flank radiating to the left lower quadrant. There is no masses at this time. Extremities: There is no peripheral edema present at the lower extremities. Peripheral Pulses: 3+ Radial (R). 3+ Radial (L). 3+ Dorsalis pedis (R). 3+ Dorsalis pedis(L) Skin: No rashes or pruritus, there is no sacral edema present at this time. Neurological: Intact cranial nerves with no focal neurologic deficits laboratory and microbiology Laboratory Tests 07/17/24 06:25 Test 07/17/24 06:25 Range/Units Serum Glucose 105 74-106 mg/dL Problem List/Assessment/Plan Problem List/Assessment/Plan Assessment/Plan Acute left sided flank pain due to left sided nephrolithiasis R/O hydronephrosis Ruled out pyelonephritis -previous imaging showing left-sided kidney stones measuring 8 mm, but most recent CT of the abdomen and pelvis performed at this visit is showing bilateral renal calculus largest measuring 4 mm without obstruction. -patient was recently discharged from our facility due to similar symptoms two weeks ago and was instructed to follow up with Urology as an outpatient for possible lithotripsy -consulted Urology, per new imaging does not look like patient need any procedure but since had a previous bigger stone reported in different imaging we will let Urology determine need for procedure. -continue IV fluids at 60 cc/hour -continue tamsulosin 0.4 mg daily -strain urine for stones -pain modulation with ketorolac and Tylenol PRN -ordered renal ultrasound which showed no evidence of hydronephrosis but showed bilateral kidney stones -KUB showed Multiple stable renal calculi overlying the left renal shadow. -UA came back unremarkable Mild hyperkalemia -furosemide 20 mg once -insulin 10 units with dextrose -Monitor electrolytes closely Primary hypertension -continue losartan 25 mg daily -monitor blood pressure and adjust medication and dosages as needed -control pain History of arthritis -monitor Goals of care discussed with the patient at bedside for > 25min, FULL CODE Plan discussed with Dr. Trujillo Plan discussed with: Patient My Orders My Orders Orders - FORTINO BAPTISTE Procedure Category Date Status Time Kub Abdomen Single XY 07/17/24 Resulted View 12:43 Kidney US 07/17/24 Resulted 12:44 Date of Service: Jul 17, 2024 Billing Provider: SERENE TRUJILLO MD Common Visit Codes: [id number] INP/OBS CARE(HIGH) FORTINO BAPTISTE RESIDENT Jul 17, 2024 15:50 SERENE TRUJILLO MD Jul 18, 2024 11:14
[2024-07-17] MEDS: LORazepam 0.5 MG TAB PO ONE (15:53)
[2024-07-17 16:56] LABS: Amphetamine Screen, Urine Neg (NEGATIVE); Barbiturate Scree,Urine Neg (NEGATIVE); Benzodiazephine Screen, Urine Neg (NEGATIVE); Cannabinoid Screen, Urine Neg (NEGATIVE); Cocaine Screen, Urine Neg (NEGATIVE); Opiate Scree,Urine Neg (NEGATIVE); Phencyclidine Screen, Urine Neg (NEGATIVE)
[2024-07-17] MEDS: KETOROLAC TROMETH 30 MG/ML 1ML VIAL IV PRN (17:32)
[2024-07-17 20:00] VITALS: PULSE 81; RESP 18; O2SAT 100
[2024-07-17 20:45] VITALS: BP 130/70; PULSE 81; RESP 18; TEMP 97.8; O2SAT 100
[2024-07-18 00:47] VITALS: BP 141/77; PULSE 99; RESP 18; TEMP 98.3; O2SAT 99
[2024-07-18 05:25] VITALS: BP 123/71; PULSE 88; RESP 17; TEMP 98; O2SAT 98
[2024-07-18 07:26] LABS: Basophils # (auto) 0.1 10 ^3/uL (0-0.2); Basophils % (auto) 0.7 % (0.0-2.0); Eosinophils # (auto) 0.1 10 ^3/uL (0-0.8); Eosinophils % (auto) 1.5 % (0.0-7.0); Hematocrit 36.1 % (36.0-46.0); Lymphocytes # (auto) 1.6 10 ^3/uL (0.4-5.4); Lymphocytes % (auto) 16.3 % (10.0-50.0); Mean Corpuscular Hgb Conc. 33.3 g/dL (32.0-36.0); Neutrophils # (auto) 7.2 10 ^3/uL (1.6-8.6); Neutrophils % (auto) 71.5 % (37.0-80.0); Nucleated Red Blood Cells % 0.1 %; Platelet Count (auto) 278 10^3/uL (140-450); Red Blood Cells 3.76 10^6/uL (4.0-5.20); Red Cell Distribution Width 13.9 % (11.8-14.3)
[2024-07-18 07:33] LABS: Potassium 4.4 mmol/L (3.5-5.1); Sodium 143 mmol/L (136-145)
[2024-07-18 07:34] LABS: Anion Gap 6 (5-15); Carbon Dioxide 27 mmol/L (20-31)
[2024-07-18 07:39] LABS: BUN/Creatinine Ratio 16.5 (10.0-20.0); Blood Urea Nitrogen 16 mg/dL (9-23); Calcium 8.3 mg/dL (8.7-10.4); Chloride 110 mmol/L (98-107); Glucose 99 mg/dL (74-106)
[2024-07-18 08:00] VITALS: PULSE 77; RESP 16; O2SAT 97
[2024-07-18 09:00] VITALS: BP 144/71; PULSE 77; RESP 16; TEMP 98.7; O2SAT 97
[2024-07-18] MEDS: LACTULOSE 20Gm/30ML SOLN PO SCH (10:22)
--- NOTE | 2024-07-18 11:30 | DVHINCON2 ---
Date of service: Jul 18, 2024 Referring Physician Hospitalist Reason for Consultation Kidney stones History of Present Illness Patient was previously seen by urology [employer] on 06/29/24 for kidney stones. 68 y/o F, with PMHx of urolithiasis, hypertension, and arthritis presents to the ED for CC of flank pain. Patient states, that she has been experiencing left sided flank pain with associated symptoms of dysuria xdays. Patient relays, that she was recently discharged from [facility] on 06/30/24 for DX: Bilateral Renal Calculus and followed up with a Urologist for a lithotripsy however, symptoms have worsened. Patient denies hematuria, fever, chills, back pain, nausea, or vo miting. No other associated symptoms, modifiers, recent injuries or sick contacts present at this time. Chief Complaint: Flank Pain Primary Care Provider: IMELDA Reviewed notes: Nurses Notes, Medications, Allergies Allergies: Coded Allergies: Morphine (Verified Allergy, Mild, 10/17/10) Home Meds Active Scripts Ibuprofen (Ibuprofen) 400 Mg Tab, 400 MG PO TID for 5 Days, #15 TAB Prov:JASMYN PARKS 06/29/24 Ciprofloxacin Hcl (Cipro) 500 Mg Tab, 500 MG PO BID for 5 Days, #10 TAB Prov:JASMYN PARKS 06/29/24 Tamsulosin Hcl (Flomax) 0.4 Mg Cap, 0.4 MG PO QPM for 30 Days, #30 CAP Prov:JASMYN PARKS 06/29/24 Ondansetron Odt 4MG Tab (ZOFRAN PO) 4 Mg Tb, 4 MG PO TID PRN, #30 TAB Prn nausea/vomiting ODT TAB-DISSOLVE IN MOUTH, THEN SWALLOW Prov:ANGELINA PAIGE MD 06/05/24 Hydrocodone-Acetaminophen (Hydrocodone Bitartrate/AC 5-325 mg) 1 Tab Tab, 1 TAB PO Q6HP PRN, #20 TAB Prn breakthrough pain Prov:ANGELINA PAIGE MD 06/05/24 Phenazopyridine HCl (Phenazopyridine Hydrochol) 200 Mg Tab, 200 MG PO TID PRN, #9 TAB Prn urinary pain Prov:ANGELINA PAIGE MD 06/05/24 Warfarin Sodium (Warfarin Sodium) 3 Mg Tab, 3 MG PO DAILY for 10 Days, #10 TAB Prov:YOU CASTLE MD 03/29/22 Yeast (S. Boulardii)(S. Cerevi (Florastor) 250 Mg Cap, 250 MG PO DAILY for 30 Days, #30 CAP Prov:YOU CASTLE MD 03/29/22 Reported Medications Losartan Potassium (Losartan Potassium) 25 Mg Tab, 1 TAB PO DAILY, #90 TAB 1 Refill 06/28/24 Folic Acid (Folic Acid) 5 Mg Cap, 5 MG PO DAILY, CAP 07/21/21 Cholecalciferol (VITAMIN D3) 2,000 Unit Tab, 1 TAB PO DAILY, #30 TAB 5 Refills 07/21/21 Milnacipran Hydrochloride (Savella) 50 Mg Tab, 100 MG PO DAILY, TAB 07/21/21 Levothyroxine Sodium (Levothyroxine Sodium) 50 Mcg Tab, 50 MCG PO QAM for 30 Days, MCG 07/21/21 Tofacitinib Citrate (XELJANZ) 5 Mg Tab, 10 MG PO DAILY, TAB 07/21/21 Hydrocodone-Acetaminophen (Hydrocodone Bitartrate/AC 5-325 mg) 1 Tab Tab, 1 TAB PO DAILY, TAB 07/21/21 Tramadol Hcl (TRAMADOL HCL ER) 200 Mg Tab, 200 MG PO DAILY, TAB 07/21/21 Methotrexate (Methotrexate) 2.5 Mg Tab, 6 TAB PO QWEEKLY, MG 07/21/21 Information Source: Patient Mode of Arrival: Ambulatory Severity: Moderate Timing: Days Duration: Since onset Prehospital treatment: None Onset: Spontaneous Symptoms: Dysuria History of: Kidney stone Location: (L)Flank Modifying factors: None associated signs and symptoms: Flank Pain, Dysuria Past Medical History Arthritis, HTN, Kidney Stones, Thyroid Past Surgical History Thyroidectomy [employer]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 Family History: Alcoholism G8 MOTHER G8 FATHER Alzheimer's disease G8 MOTHER Arthritis G8 MOTHER FH: colon cancer FH: dementia FH: hypertension FH: throat cancer Allergies: Coded Allergies: Morphine (Verified Allergy, Mild, 10/17/10) Home Meds Active Scripts Hydrocodone-Acetaminophen (Hydrocodone Bitartrate/AC 5-325 mg) 1 Tab Tab, 1 TAB PO Q6HP PRN, #20 TAB Prn breakthrough pain Prov:ANGELINA PAIGE MD 06/05/24 Reported Medications Losartan Potassium (Losartan Potassium) 25 Mg Tab, 1 TAB PO DAILY, #90 TAB 1 Refill 06/28/24 Cholecalciferol (VITAMIN D3) 2,000 Unit Tab, 1 TAB PO DAILY, #30 TAB 5 Refills 07/21/21 Milnacipran Hydrochloride (Savella) 50 Mg Tab, 100 MG PO DAILY, TAB 07/21/21 Levothyroxine Sodium (Levothyroxine Sodium) 50 Mcg Tab, 50 MCG PO QAM for 30 Days, MCG 07/21/21 Tofacitinib Citrate (XELJANZ) 5 Mg Tab, 10 MG PO DAILY, TAB 07/21/21 Hydrocodone-Acetaminophen (Hydrocodone Bitartrate/AC 5-325 mg) 1 Tab Tab, 1 TAB PO DAILY, TAB 07/21/21 Tramadol Hcl (TRAMADOL HCL ER) 200 Mg Tab, 200 MG PO DAILY, TAB 07/21/21 Current Medications Current Medications Medications (Trade) Dose Ordered Sig/Yumiko Route PRN Reason Start Time Stop Time Status Last Admin Ketorolac Tromethamine (Toradol Injection) 15 mg Q6HPRN PRN IV MODERATE PAIN (4-6 PAIN SCALE) 07/17/24 15:45 07/22/24 15:44 07/18/24 11:25 Acetaminophen (Tylenol Tablet) 650 mg Q6HP PRN PO MODERATE PAIN (4-6 PAIN SCALE) 07/17/24 15:45 07/17/24 15:39 DC Lactulose 30 ml DAILY PO 07/18/24 10:00 07/18/24 10:22 Review of Systems Constitutional: denies: chills, diaphoresis, fatigue, fever, malaise, sweats, weakness, others EENTM: denies: blurred vision, double vision, ear bleeding, ear discharge, ear drainage, ear pain, ear ringing, eye pain, eye redness, hearing loss, mouth pain, mouth swelling, nasal discharge, nose bleeding, nose congestion, nose pain, photophobia, tearing, throat pain, throat swelling, voice changes, others Respiratory: denies: cough, hemoptysis, orthopnea, SOB at rest, shortness of breath, SOB with excertion, stridor, wheezing, others Cardiovascular: denies: chest pain, dizzy spells, diaphoresis, Dyspnea on exertion, edema, irregular heart beat, left arm pain, lightheadedness, palpitations, PND, syncope, others Gastrointestinal: denies: abdomen distended, abdominal pain, blood streaked bowels, constipated, diarrhea, dysphagia, difficulty swallowing, hematemesis, melena, nausea, poor appetite, poor fluid intake, rectal bleeding, rectal pain, vomiting, others Genitourinary: reports: dysuria, flank pain; denies: abnormal vagina bleeding, burning, dyspareunia, frequency, hematuria, incontinence, pain, , vagina discharge, urgency, others Neurological: denies: dizziness, fainting, headache, left sided numbness, left sided weakness, numbness, paresthesia, pre-existing deficit, right sided numbness, right sided weakness, seizure, speech problems, tingling, tremors, weakness, others Musculoskeletal: denies: back pain, gout, joint pain, joint swelling, muscle pain, muscle stiffness, neck pain, others Integumetry: denies: bruises, change in color, change in hair/nails, dryness, laceration, lesions, lumps, rash, wounds, others Allergic/Immunocompromised: denies: Difficulty Healing, Frequent Infections, Hives, Itching, others Hematologic/Lymphatic: denies: anemia, blood clots, easy bleeding, easy bruising, swollen glands, others Endocrine: denies: excessive hunger, excessive sweating, excessive thirst, excessive urination, flushing, intolerance to cold, intolerance to heat, unexplained weight gain, unexplained weight loss, others Psychiatric: denies: anxiety, bipolar disorder, depression, hopeless, panic disorder, schizophrenia, sleepless, suicidal, others All Other Systems: Reviewed and Negative Vital Signs Vital Signs Date Time Temp Pulse Resp B/P (MAP) Pulse Ox O2 Delivery O2 Flow Rate FiO2 07/18/24 10:25 144/71 07/18/24 09:00 98.7 77 16 97 98.7 07/18/24 08:00 Room Air* 0 21 Physical Exam General Appearance: Moderate Distress HEENT: Normal ENT Inspection, Pharynx Normal, TMs Normal Neck: Full Range of Motion, Non-Tender, Normal, Normal Inspection Respiratory: Chest Non-Tender, Lungs Clear, No Accessory Muscle Use, No Respiratory Distress, Normal Breath Sounds Cardiovascular: No Edema, No JVD, No Murmur, No Gallop, Normal Peripheral Pul ses, Regular Rate/Rhythm Breast Exam: Deferred Gastrointestinal: No Organomegaly, Non Tender, No Pulsatile Mass, Normal Bowel Sounds, Soft Genitalia: Deferred Pelvic: Deferred Rectal: Deferred Extremities: No calf tenderness, Normal capillary refill, Normal inspection, Normal range of motion, Non-tender, No pedal edema Musculoskeletal : Apperance: Normal Neurologic: Alert, direct customer service representative II-XII nml as Tested, No Motor Deficits, Normal Affect, Normal Mood, No Sensory Deficits Cerebellar Function: Normal Reflexes: Normal Skin: Dry, Normal Color, Warm Peripheral Pulses: 3+ Radial (R), 3+ Radial (L) Labs/Diagnostic Data Labs Test 07/18/24 06:27 07/17/24 16:00 07/17/24 15:44 07/17/24 11:18 Range/Units White Blood Count 10.0 4.4-10.8 10^3/uL Red Blood Count 3.76 L 4.0-5.20 10^6/uL Hemoglobin 12.0 L 12.2-16.2 g/dL Hematocrit 36.1 36.0-46.0 % Mean Corpuscular Volume 96.0 80.0-100.0 fL Mean Corpuscular Hemoglobin 32.0 28.0-32.0 pg Mean Corpuscular Hemoglobin Concent 33.3 32.0-36.0 g/dL Red Cell Distribution Width 13.9 11.8-14.3 % Platelet Count 278 140-450 10^3/uL Mean Platelet Volume 8.1 6.9-10.8 fL Neutrophils (%) (Auto) 71.5 37.0-80.0 % Lymphocytes (%) (Auto) 16.3 10.0-50.0 % Monocytes (%) (Auto) 10.0 0.0-12.0 % Eosinophils (%) (Auto) 1.5 0.0-7.0 % Basophils (%) (Auto) 0.7 0.0-2.0 % Neutrophils # (Auto) 7.2 1.6-8.6 10 ^3/uL Lymphocytes # (Auto) 1.6 0.4-5.4 10 ^3/uL Monocytes # (Auto) 1.0 0-1.3 10 ^3/uL Eosinophils # (Auto) 0.1 0-0.8 10 ^3/uL Basophils # (Auto) 0.1 0-0.2 10 ^3/uL Nucleated Red Blood Cells 0.1 % Sodium Level 143 136-145 mmol/L Potassium Level 4.4 3.5-5.1 mmol/L Chloride Level 110 H 98-107 mmol/L Carbon Dioxide Level 27 20-31 mmol/L Anion Gap 6 5-15 Blood Urea Nitrogen 16 9-23 mg/dL Creatinine 0.97 0.550-1.02 mg/dL Glomerular Filtration Rate Calc 64 >90 mL/min BUN/Creatinine Ratio 16.5 10.0-20.0 Serum Glucose 99 74-106 mg/dL Calcium Level 8.3 L 8.7-10.4 mg/dL Urine Opiates Screen Neg NEGATIVE Urine Fentanyl Screen Neg NEGATIVE Urine Barbiturates Screen Neg NEGATIVE Urine Phencyclidine Screen Neg NEGATIVE Urine Amphetamines Screen Neg NEGATIVE Urine Benzodiazepines Screen Neg NEGATIVE Urine Cocaine Screen Neg NEGATIVE Urine Cannabinoids Screen Neg NEGATIVE POC Glucose 117 H 70-106 mg/dl Thyroid Stimulating Hormone (TSH) 1.93 0.55-4.78 uIU/mL Test 07/17/24 06:25 07/16/24 10:43 Range/Units Total Bilirubin 0.3 0.2-1.0 mg/dL Aspartate Amino Transferase (AST) 23 13-40 U/L Alanine Aminotransferase (ALT) 37 7-40 U/L Alkaline Phosphatase 65 46-116 U/L Total Protein 6.0 5.7-8.2 g/dL Albumin 4.2 3.2-4.8 g/dL Vitamin D 25-Hydroxy 58.8 30.0-100 ng/mL Free Thyroxine (T4) Calculated 1.17 0.89-1.76 ng/dL Urine Color Yellow Yellow Urine Clarity Clear Clear Urine pH 6.5 5.0-9.0 Urine Specific Ledbetter 1.013 1.001-1.035 Urine Protein Negative Negative Urine Ketones Negative Negative Urine Blood Negative Negative /uL Urine Nitrite Negative Negative Urine Bilirubin Negative Negative Urine Urobilinogen Normal Negative mg/dL Urine Leukocyte Esterase Negative Negative /uL Urine RBC 1 0 - 4 /hpf Urine Microscopic WBC 3 0-5 /HPF Urine Squamous Epithelial Cells Few <5 /hpf Urine Bacteria None seen None Seen /hpf Urine Glucose Normal Normal mg/dL PATIENT: GABRIELE VELIZ SACCT: [id number] UNIT: [id number] : 1955 LOC: ER ROOM / BED: / AGE / SEX: 68 / F ADM STATUS: REG ER SERVICE [id number] ORDERING PHYSICIAN: JAKE DAUGHERTY MD PROCEDURE(s): ABPL - CT AB PEL WO CON-NO ORAL OR IV REASON: stone ORDER NUMBER(s): [id number], ACCESSION NUMBER(s): [id number] EXAM: CT Abdomen and Pelvis Without Intravenous Contrast CLINICAL INDICATION: stone TECHNIQUE: Axial computed tomography images of the abdomen and pelvis without intravenous contrast. This CT exam was performed using one or more of the following dose reduction techniques: automated exposure control, adjustment of the mA and/or kV according to patient size, and/or use of iterative reconstruction technique. CONTRAST: RADIATION DOSE: CTDIvol = 6.46 mGy, DLP = 296.16 mGy-cm COMPARISON: CT CT AB PEL WO CON-NO ORAL OR IV on DOS: 06/27/24, CT CT AB PEL WO CON-NO ORAL OR IV on DOS: 06/05/24, CT CT AB PEL WO CON-NO ORAL OR IV on DOS: 05/18/24, [facility] on DOS: 07/22/21 FINDINGS: LUNG BASES: Unremarkable. No mass. No consolidation. ABDOMEN: LIVER: Unremarkable. GALLBLADDER AND BILE DUCTS: Unremarkable. No calcified stones. No ductal dilation. PANCREAS: Unremarkable. No ductal dilation. SPLEEN: Unremarkable. No splenomegaly. ADRENALS: Unremarkable. No mass. KIDNEYS AND URETERS: Bilateral renal pelvic calculi, largest measuring up to 4 mm without obstruction. STOMACH AND BOWEL: Fecal retention in the colon consistent with constipation. No obstruction. No mucosal thickening. PELVIS: APPENDIX: No findings to suggest acute appendicitis. BLADDER: Unremarkable. No stones. REPRODUCTIVE: Unremarkable as visualized. ABDOMEN and PELVIS: INTRAPERITONEAL SPACE: Unremarkable. No free air. No significant fluid collection. BONES/JOINTS: Degenerative disc disease throughout the lumbar spine. Degenerative facet arthropathy throughout the lumbar spine, most prominent in the lower lumbar spine. No acute fracture. No dislocation. SOFT TISSUES: Umbilical hernia containing fat. VASCULATURE: Unremarkable. No abdominal aortic aneurysm. LYMPH NODES: Unremarkable. No enlarged lymph nodes. OTHER FINDINGS: . IMPRESSION: 1. Bilateral renal pelvic calculi, largest measuring up to 4 mm without obstruction. 2. Fecal retention in the colon consistent with constipation. 3. Umbilical hernia containing fat. 4. Degenerative changes lumbar spine as described. ATED BY: ALPHONSE HARRIS MD DICTATED DATE/TIME: 07/16/24 1236 SIGNED BY: ALPHONSE HARRIS MD SIGNED DATE/TIME: 07/16/24 1236 CC: Assessment Bilateral renal stones Plan/Recommendation Outpatient ESWL TBA Plan discussed with: Patient, Other SHARAD COTA MD Jul 18, 2024 11:30
[2024-07-18] MEDS ORDERED: TAMS0.4C39 PO (12:27)
[2024-07-18] MEDS ORDERED: NAP500T PO (12:27)
--- NOTE | 2024-07-18 12:41 | DVHDSRES ---
Discharge Summary Date of Admission Resident Creating Document: FORTINO BAPTISTE RESIDENT Jul 16, 2024 at 16:21 Date of Discharge: Jul 18, 2024 Admitting Diagnosis Left-sided flank pain Wounds: No wounds present at this time. Labs/Diagnostic Data: Laboratory Results Test 07/18/24 06:27 07/17/24 16:00 07/17/24 15:44 07/17/24 11:18 White Blood Count 10.0 10^3/uL (4.4-10.8) Red Blood Count 3.76 10^6/uL (4.0-5.20) Hemoglobin 12.0 g/dL (12.2-16.2) Hematocrit 36.1 % (36.0-46.0) Mean Corpuscular Volume 96.0 fL (80.0-100.0) Mean Corpuscular Hemoglobin 32.0 pg (28.0-32.0) Mean Corpuscular Hemoglobin Concent 33.3 g/dL (32.0-36.0) Red Cell Distribution Width 13.9 % (11.8-14.3) Platelet Count 278 10^3/uL (140-450) Mean Platelet Volume 8.1 fL (6.9-10.8) Neutrophils (%) (Auto) 71.5 % (37.0-80.0) Lymphocytes (%) (Auto) 16.3 % (10.0-50.0) Monocytes (%) (Auto) 10.0 % (0.0-12.0) Eosinophils (%) (Auto) 1.5 % (0.0-7.0) Basophils (%) (Auto) 0.7 % (0.0-2.0) Neutrophils # (Auto) 7.2 10 ^3/uL (1.6-8.6) Lymphocytes # (Auto) 1.6 10 ^3/uL (0.4-5.4) Monocytes # (Auto) 1.0 10 ^3/uL (0-1.3) Eosinophils # (Auto) 0.1 10 ^3/uL (0-0.8) Basophils # (Auto) 0.1 10 ^3/uL (0-0.2) Nucleated Red Blood Cells 0.1 % Sodium Level 143 mmol/L (136-145) Potassium Level 4.4 mmol/L (3.5-5.1) Chloride Level 110 mmol/L (98-107) Carbon Dioxide Level 27 mmol/L (20-31) Anion Gap 6 (5-15) Blood Urea Nitrogen 16 mg/dL (9-23) Creatinine 0.97 mg/dL (0.550-1.02) Glomerular Filtration Rate Calc 64 mL/min (>90) BUN/Creatinine Ratio 16.5 (10.0-20.0) Serum Glucose 99 mg/dL (74-106) Calcium Level 8.3 mg/dL (8.7-10.4) Urine Opiates Screen Neg (NEGATIVE) Urine Fentanyl Screen Neg (NEGATIVE) Urine Barbiturates Screen Neg (NEGATIVE) Urine Phencyclidine Screen Neg (NEGATIVE) Urine Amphetamines Screen Neg (NEGATIVE) Urine Benzodiazepines Screen Neg (NEGATIVE) Urine Cocaine Screen Neg (NEGATIVE) Urine Cannabinoids Screen Neg (NEGATIVE) POC Glucose 117 mg/dl (70-106) Thyroid Stimulating Hormone (TSH) 1.93 uIU/mL (0.55-4.78) Test 07/17/24 06:25 07/16/24 10:43 Total Bilirubin 0.3 mg/dL (0.2-1.0) Aspartate Amino Transferase (AST) 23 U/L (13-40) Alanine Aminotransferase (ALT) 37 U/L (7-40) Alkaline Phosphatase 65 U/L (46-116) Total Protein 6.0 g/dL (5.7-8.2) Albumin 4.2 g/dL (3.2-4.8) Vitamin D 25-Hydroxy 58.8 ng/mL (30.0-100) Free Thyroxine (T4) Calculated 1.17 ng/dL (0.89-1.76) Urine Color Yellow (Yellow) Urine Clarity Clear (Clear) Urine pH 6.5 (5.0-9.0) Urine Specific [place] 1.013 (1.001-1.035) Urine Protein Negative (Negative) Urine Ketones Negative (Negative) Urine Blood Negative /uL (Negative) Urine Nitrite Negative (Negative) Urine Bilirubin Negative (Negative) Urine Urobilinogen Normal mg/dL (Negative) Urine Leukocyte Esterase Negative /uL (Negative) Urine RBC 1 /hpf (0 - 4) Urine Microscopic WBC 3 /HPF (0-5) Urine Squamous Epithelial Cells Few /hpf (<5) Urine Bacteria None seen /hpf (None Seen) Urine Glucose Normal mg/dL (Normal) Other Laboratory Tests 07/18/24 06:27 Brief Hx & Hospital Course: This is a 68-year-old female with past medical history of hypertension, previous kidney stones, arthritis, who presented to the ED with chief complaint of left- sided flank pain radiating to the left lower quadrant. Patient reports that she was recently discharged from this facility 2-3 weeks ago due to similar symptoms and was diagnosed with left-sided kidney stones in which she was instructed to follow-up with Urology as an outpatient for waveshock lithotripsy. Patient described the pain as a 7/10 on the pain scale located in the left lower back radiating to the left flank and left lower quadrant. Patient states that pain was recently getting worse requiring to come back to the ED. patient also reported that she followed up with Urology as an outpatient and she was likely to be scheduled for lithotripsy but symptoms got worse previous to procedure. Patient had a previous KUB performed as an outpatient showing a left-sided kidney stone of 8 mm. Upon admission, the patient had a CT scan of the abdomen and pelvis without contrast that showed bilateral renal pelvic calculi and that the largest one was measuring 4 mm without obstruction. Despite of discrepancy of both studies, upon my examination the patient is having significant left- sided flank pain. We ordered a KUB and renal ultrasound for further assessment of nephrolithiasis. Patient was started on fluids, tamsulosin and urology was consulted. Patient has been receiving IV fluids and tamsulosin 0.4 mg daily, pain management has been given with ketorolac and Tylenol PRN. Urology evaluated the patient and stated that patient might follow-up as an outpatient for possible extracorporeal shock wave lithotripsy. Patient was seen and examined today at bedside. Patient still reports mild left-sided back pain but is slightly better compared to admission. Patient denies fever/chills, hematuria, dysuria, urinary incontinence or any other symptom at this time. We will discharge the patient home on tamsulosin 0.4 mg daily for 14 days and naproxen 500 mg b.i.d. p.r.n. for five days for pain modulation. Patient has already an appointment for August 01, [address] Jimenez for procedure stated above. Patient agrees and understands the plan. ROS Constitutional: Denies weight loss, fever and chills. HEENT: Denies changes in vision and hearing. Respiratory: Denies shortness of breath and cough Cardiovascular: Denies chest discomfort or palpitations GI: Denies abdominal pain, nausea, vomiting and diarrhea. : Denies dysuria and urinary frequency. Musculoskeletal: Denies myalgias and joint pain Skin: Denies rash and pruritus. Neurological: Denies dizziness, headache, vision or hearing problems Physical Examination General: Patient alert and oriented in person, place and time. Patient following commands. HEENT: Normocephalic, atraumatic, moist mucous membranes Respiratory/pulmonary: Clear lungs bilaterally, no associated crackles or wheezes. Cardiovascular: Normal heart sounds S1 and S2 with no associated murmurs Abdomen: Abdomen nondistended, there is mild pain to palpation on left flank pain but improved compare to admission. no palpable masses. Extremities: There is no peripheral edema present at the lower extremities. Peripheral Pulses: 3+ Radial (R). 3+ Radial (L). 3+ Dorsalis pedis (R). 3+ Dorsalis pedis(L) Skin: No rashes or pruritus, there is no sacral edema present at this time. Neurological: Intact cranial nerves with no focal neurologic deficits Consults/Reason for consult Urology for left sided nephrolithiasis Operations or Procedures EXAM: CT Abdomen and Pelvis Without Intravenous Contrast CLINICAL INDICATION: stone TECHNIQUE: Axial computed tomography images of the abdomen and pelvis without intravenous contrast. This CT exam was performed using one or more of the following dose reduction techniques: automated exposure control, adjustment of the mA and/or kV according to patient size, and/or use of iterative reconstruction technique. CONTRAST: RADIATION DOSE: CTDIvol = 6.46 mGy, DLP = 296.16 mGy-cm COMPARISON: CT CT AB PEL WO CON-NO ORAL OR IV on DOS: 06/27/24, CT CT AB PEL WO CON-NO ORAL OR IV on DOS: 06/05/24, CT CT AB PEL WO CON-NO ORAL OR IV on DOS: 05/18/24, [facility] on DOS: 07/22/21 FINDINGS: LUNG BASES: Unremarkable. No mass. No consolidation. ABDOMEN: LIVER: Unremarkable. GALLBLADDER AND BILE DUCTS: Unremarkable. No calcified stones. No ductal dilation. PANCREAS: Unremarkable. No ductal dilation. SPLEEN: Unremarkable. No splenomegaly. ADRENALS: Unremarkable. No mass. KIDNEYS AND URETERS: Bilateral renal pelvic calculi, largest measuring up to 4 mm without obstruction. STOMACH AND BOWEL: Fecal retention in the colon consistent with constipation. No obstruction. No mucosal thickening. PELVIS: APPENDIX: No findings to suggest acute appendicitis. BLADDER: Unremarkable. No stones. REPRODUCTIVE: Unremarkable as visualized. ABDOMEN and PELVIS: INTRAPERITONEAL SPACE: Unremarkable. No free air. No significant fluid collection. BONES/JOINTS: Degenerative disc disease throughout the lumbar spine. Degenerative facet arthropathy throughout the lumbar spine, most prominent in the lower lumbar spine. No acute fracture. No dislocation. SOFT TISSUES: Umbilical hernia containing fat. VASCULATURE: Unremarkable. No abdominal aortic aneurysm. LYMPH NODES: Unremarkable. No enlarged lymph nodes. OTHER FINDINGS: . IMPRESSION: 1. Bilateral renal pelvic calculi, largest measuring up to 4 mm without obstruction. 2. Fecal retention in the colon consistent with constipation. 3. Umbilical hernia containing fat. 4. Degenerative changes lumbar spine as described. Date: 07/17/2024 01:25 PM Examination: XY KUB ABDOMEN SINGLE VIEW History: Left kidney stone previous image 8mm Comparison: None TECHNIQUE: Frontal views of the abdomen was obtained. FINDINGS: Bowel gas pattern is unremarkable. The lung bases are unremarkable. No acute osseous abnormality identified. IMPRESSION: Nonobstructive bowel gas pattern. Large stool burden. Multiple stable renal calculi overlying the left renal shadow. INDICATION: R/O hydronephrosis TECHNIQUE: Multiple real-time sonographic images of the kidneys and bladder were obtained. COMPARISON: None FINDINGS: The right kidney measures 8 cm in length, which is normal in size. There is normal echogenicity of the right kidney. No hydronephrosis. The left kidney measures 9 cm in length, which is normal in size. There is normal echogenicity of the left kidney. No hydronephrosis. Bilateral renal calculi measuring up to 7 mm in the right kidney and 1 cm in the left kidney. IMPRESSION: Bilateral nonobstructing renal calculi. Condition at Discharge: Stable Final Diagnosis/Problems List Acute left sided flank pain due to left sided nephrolithiasis Ruled Out hydronephrosis Ruled out pyelonephritis Mild hyperkalemia Primary hypertension Hypothyroidism History of arthritis Discharge Disposition: Home Discharge Instruct/Medications Diet: Regular Diet comment: Patricio zapata hydration Activity: No Restrictions, As Tolerated Follow Up/Referral: F/U with her PCP in 1 week F/U with urologist Dr. JIMENEZ as outpatient for poss lithotripsy in (aug 01 2024) Medications: Tamsulosin 0.4mg daily for 14 days Naproxen 500mg BID PRN for 5 days. Cont. rest of home meds Discharge Statement: "Patient was advised to return to the ER or call 911 if any headaches, dizziness, shortness of breath, chest pain, abdominal pain, bleeding, fevers, or worsening of medical condition. Patient was counseled about treatment plan, medications, possible side effects, patientverbalized understanding. All questions were answered to the best of my ability. This discharge took greater then 30 minutes in planning, reviewing documentation, counseling the patient, and discussing with other team members." ASSESSMENT ASSESSMENT Assessment Acute left sided flank pain due to left sided nephrolithiasis Ruled Out hydronephrosis Ruled out pyelonephritis Mild hyperkalemia Primary hypertension Hypothyroidism History of arthritis Date of Service: Jul 18, 2024 Billing Provider: YOU CASTLE MD Common Visit Codes: 03431-YNO/OBS DISCH DAY >30min FORTINO BAPTISTE RESIDENT Jul 18, 2024 12:41 YOU CASTLE MD Jul 19, 2024 20:46
[2024-07-18 12:44] VITALS: BP 144/71; PULSE 77; RESP 16; TEMP 98.7; O2SAT 97
[2024-07-18 13:03] VITALS: BP 129/70; PULSE 89; RESP 19; TEMP 98.9; O2SAT 98
== END 2024-07-18 15:30 | disposition home or self-care (01) | DRG 694 ==
LOC: ER 10:29 → OVERFLOW 16:21 → EAST 16:31
PROVIDERS: ADMIT Nurse Practitioner Family; ATTEND Nurse Practitioner Family
DX: N20.0 Calculus of kidney (principal); I10 Essential (primary) hypertension; G89.4 Chronic pain syndrome; E87.5 Hyperkalemia; E89.0 Postprocedural hypothyroidism; Z96.651 Presence of right artificial knee joint; Z88.5 Allergy status to narcotic agent; Z79.1 Long term (current) use of non-steroidal anti-inflammatories (NSAID); Z88.1 Allergy status to other antibiotic agents; Z79.899 Other long term (current) drug therapy; Z80.0 Family history of malignant neoplasm of digestive organs; Z80.8 Family history of malignant neoplasm of other organs or systems; Z82.0 Family history of epilepsy and other diseases of the nervous system; Z82.49 Family history of ischemic heart disease and other diseases of the circulatory system
CPT/HCPCS: 36415; 74018; 74176; 76775; 80048; 80053; 80307; 81001; 82306; 82310; 82962; 84439; 84443; 85025; 87081; G0378; J1815; J1885; J2405

== ENCOUNTER 2025-01-19 01:11 | Emergency (ER) | payer MEDICARE ==
[~2025-01-19] VITALS: Ht 167.6 cm; Wt 56.0 kg
[~2025-01-19 01:11] MED LIST changes: -CIPR-173 PO; -FOLI5CAP PO; -IBUP-1453 PO; -METH2.5T PO; +NAP500T PO; -PHEN-1045 PO; -SACC250C PO; -TAMS-35 PO; +TAMS0.4C39 PO; -WARF-111 PO; -ZOFR4T PO
[2025-01-19 01:21] VITALS: BP 166/70; PULSE 98; RESP 18; TEMP 98.5; O2SAT 99
--- NOTE | 2025-01-19 02:38 | ED.PDOC ---
General HPI Comments 69 year old female presents to the ED with a chief compliant of bilateral flank pain onset 1 day. Patient states she began experiencing bilateral flank pain 1 day ago as well as nausea, diarrhea, chills, urinary frequency. Patient was seen in this ED on 07/16/24, was admitted for kidney stones, patient states pain is similar. She had appointment with PCP 1 week ago, was told she had UTI, was treated. She took Tylenol prior to going to sleep, woke up around 23:30, noticed pain had worsened. PMhx CKD, thyroid disease, arthritis, kidney stones. Denies fevers, heavy lifting, fall, injury, dysuria, hematuria, vomiting, chest pain, shortness of breath. No other symptoms or modifying factors present at this time. Chief Complaint: Back Pain Time Seen by MD: 02:15 Primary Care Provider: IMELDA Sherman notes: Medications, Allergies Allergies: Coded Allergies: Morphine (Verified Allergy, Mild, 10/17/10) Home Meds Active Scripts Ibuprofen (Ibuprofen) 600 Mg Tab, 1 TAB PO TID, #30 TAB Prov:YOLIE SANCHES MD 01/19/25 Acetaminophen (Acetaminophen Er) 650 Mg Tab, 650 MG PO TIDPRN PRN, #15 TAB Prov:YOLIE SANCHES MD 01/19/25 Tamsulosin Hcl (Tamsulosin Hcl) 0.4 Mg Cap, 1 CAP PO DAILY for 14 Days, #14 CAP 5 Refills Prov:FORTINO BAPTISTE RESIDENT 07/18/24 Naproxen (NAPROSYN TABLET) 500 Mg Tb, 1 TAB PO BID PRN for 5 Days, #10 TAB 1 Refill Prov:FORTINO BAPTISTE RESIDENT 07/18/24 Hydrocodone-Acetaminophen (Hydrocodone Bitartrate/AC 5-325 mg) 1 Tab Tab, 1 TAB PO Q6HP PRN, #20 TAB Prn breakthrough pain Prov:ANGELINA PAIGE MD 06/05/24 Reported Medications Losartan Potassium (Losartan Potassium) 25 Mg Tab, 1 TAB PO DAILY, #90 TAB 1 Refill 06/28/24 Cholecalciferol (VITAMIN D3) 2,000 Unit Tab, 1 TAB PO DAILY, #30 TAB 5 Refills 07/21/21 Milnacipran Hydrochloride (Savella) 50 Mg Tab, 100 MG PO DAILY, TAB 07/21/21 Levothyroxine Sodium (Levothyroxine Sodium) 50 Mcg Tab, 50 MCG PO QAM for 30 Days, MCG 07/21/21 Tofacitinib Citrate (XELJANZ) 5 Mg Tab, 10 MG PO DAILY, TAB 07/21/21 Hydrocodone-Acetaminophen (Hydrocodone Bitartrate/AC 5-325 mg) 1 Tab Tab, 1 TAB PO DAILY, TAB 07/21/21 Tramadol Hcl (TRAMADOL HCL ER) 200 Mg Tab, 200 MG PO DAILY, TAB 07/21/21 Information Source: Patient Mode of Arrival: Ambulatory Severity: Moderate Timing: Days Duration: Intermittent Prehospital treatment: Pain Meds (tylenol) Onset: Spontaneous Symptoms: Other History of: Kidney stone Location: (R) Flank, (L)Flank Modifying factors: None associated signs and symptoms: Nausea, Flank Pain, Frequency Vital Signs Vital Signs Date Time Temp Pulse Resp B/P (MAP) Pulse Ox O2 Delivery O2 Flow Rate FiO2 01/19/25 01:21 98.5 98 18 166/70 99 98.5 Physical Exam PHYSICAL EXAM: General: Awake, alert and oriented. No acute distress. Skin: Skin in warm, dry and intact. Appropriate color for ethnicity. HEENT: The head is normocephalic and atraumatic. Conjunctivae are clear without exudates or hemorrhage. Sclera is non-icteric. EOM are intact. No signs of nystagmus. Eyelids are normal in appearance without swelling or lesions. Oral mucosa is pink and moist Neck: The neck is supple with normal range of motion. No JVD. Cardiac: Heart rate and rhythm are normal. No murmurs, gallops, or rubs are auscultated. Respiratory: No signs of respiratory distress. Lung sounds are clear in all lobes bilaterally without rales, rhonchi, or wheezes. Abdominal: Abdomen is soft, non-tender without distention, guarding or rigidity. Bowel sounds are present and normoactive in all four quadrants. Back: B/L paraspinal lumbar tenderness to palpation. Neurological: The patient is awake, alert and oriented to person, place, and time with normal speech. Speech is clear. There is no facial asymmetry. Normal gait. Psychiatric: Appropriate mood and affect. Good judgement and insight. 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 Was a procedure done?: No Differential Diagnosis Kidney stone (Female): Other (Differential diagnoses considered include but are not limited to back strain or sprain, degenerative disc disease, herniated disc, spinal stenosis, cauda equina syndrome, spinal epidural abscess, spinal fracture, metastatic cancer, aortic dissection, AAA rupture, epidural hematoma, osteomyelitis, pyelonephritis, nephrolithiasis, other) X-Ray, Labs, Meds, VS Vital Signs Date Time Temp Pulse Resp B/P (MAP) Pulse Ox O2 Delivery O2 Flow Rate FiO2 01/19/25 01:21 98.5 98 18 166/70 99 98.5 Lab Test 01/19/25 02:47 01/19/25 02:20 Range/Units White Blood Count 6.7 4.4-10.8 10^3/uL Red Blood Count 4.21 4.0-5.20 10^6/uL Hemoglobin 13.3 12.2-16.2 g/dL Hematocrit 39.6 36.0-46.0 % Mean Corpuscular Volume 94.2 80.0-100.0 fL Mean Corpuscular Hemoglobin 31.6 28.0-32.0 pg Mean Corpuscular Hemoglobin Concent 33.5 32.0-36.0 g/dL Red Cell Distribution Width 15.4 H 11.8-14.3 % Platelet Count 281 140-450 10^3/uL Mean Platelet Volume 8.1 6.9-10.8 fL Neutrophils (%) (Auto) 45.9 37.0-80.0 % Lymphocytes (%) (Auto) 38.7 10.0-50.0 % Monocytes (%) (Auto) 12.0 0.0-12.0 % Eosinophils (%) (Auto) 2.3 0.0-7.0 % Basophils (%) (Auto) 1.1 0.0-2.0 % Neutrophils # (Auto) 3.1 1.6-8.6 10 ^3/uL Lymphocytes # (Auto) 2.6 0.4-5.4 10 ^3/uL Monocytes # (Auto) 0.8 0-1.3 10 ^3/uL Eosinophils # (Auto) 0.2 0-0.8 10 ^3/uL Basophils # (Auto) 0.1 0-0.2 10 ^3/uL Nucleated Red Blood Cells 0.1 % Sodium Level 142 136-145 mmol/L Potassium Level 4.2 3.5-5.1 mmol/L Chloride Level 106 98-107 mmol/L Carbon Dioxide Level 29 20-31 mmol/L Anion Gap 7 5-15 Blood Urea Nitrogen 15 9-23 mg/dL Creatinine 0.98 0.550-1.02 mg/dL Glomerular Filtration Rate Calc 62 >90 mL/min BUN/Creatinine Ratio 15.3 10.0-20.0 Serum Glucose 95 74-106 mg/dL Calcium Level 9.6 8.7-10.4 mg/dL Urine Color Light-yellow Yellow Urine Clarity Clear Clear Urine pH 6.5 5.0-9.0 Urine Specific [place] 1.008 1.001-1.035 Urine Protein Negative Negative Urine Ketones Negative Negative Urine Blood Negative Negative /uL Urine Nitrite Negative Negative Urine Bilirubin Negative Negative Urine Urobilinogen Normal Negative mg/dL Urine Leukocyte Esterase Negative Negative /uL Urine RBC <1 0 - 4 /hpf Urine Microscopic WBC < 1 0-5 /HPF Urine Squamous Epithelial Cells Few <5 /hpf Urine Bacteria None seen None Seen /hpf Urine Glucose Normal Normal mg/dL Time of 1ST Reevaluation: 02:45 Reevaluation 1ST: Unchanged Patient Education/Counseling: Need For Follow Up Family Education/Counseling: No Family Present SEPSIS Sepsis Screen Date sepsis recognized/suspect: Jan 19, 2025 Time Sepsis recognized/suspect: 012 Recent Procedure: No On Antibiotic Therapy: No Respiratory Rate >20: No Heart Rate >90: No Temp<36 C (96.8 F) or >38.3 C: No SBP <90 or MAP <65 mmHG: No New Acute Mental Status Change: No Is the patient on CPAP, BIPAP,: No Physician Orders Ct Ab Pel Wo Con-No Oral Or Iv (01/19/25 02:36) Vital Signs Date Time Temp Pulse Resp B/P (MAP) Pulse Ox O2 Delivery O2 Flow Rate FiO2 01/19/25 01:21 98.5 98 18 166/70 99 98.5 Laboratory Tests Test 01/19/25 02:47 White Blood Count 6.7 10^3/uL (4.4-10.8) Departure 1 Departure Time of Disposition: 04:09 Impression: Primary Impression: Back pain Disposition: 01 HOME / SELF CARE / HOMELESS Condition: Stable Additional Instructions: ED DISCHARGE INSTRUCTIONS Instructions: Please read all instructions provided in this packet carefully. Although you have been discharged from the Emergency Department, this does not mean that you have a "clean bill of health". No definitive diagnosis for your symptoms has been made today. It is possible that you are in the process of developing a serious illness. This is why you must return to the ED without fail if any new or worsening symptoms (especially if your symptoms include chest pain, trouble breathing, abdominal pain, fever, headache, confusion, trouble seeing, or trouble walking) It is also very important that you see a primary care provider (PCP) within the next 3-5 days to follow up. If you are unable to get an appointment, return to the ED for re-evaluation. Back Pain: Care Instructions Table of Contents Overview How can you care for yourself at home? When should you call for help? Credits Overview In most cases, there isn't a clear cause for back pain. It may be related to pr oblems with muscles and ligaments of the back. It may also be related to problems with the nerves, discs, or bones of the back. Moving, lifting, standing, sitting, or sleeping in an awkward way can strain the back. Arthritis is another cause of back pain. Although it may hurt a lot, back pain usually improves on its own within several weeks. Most people recover in 12 weeks or less. Using self-care, such as ice or heat and light activity (like walking) may help you feel better sooner. Follow-up care is a langley part of your treatment and safety. Be sure to make and go to all appointments, and call your doctor if you are having problems. It's also a good idea to know your test results and keep a list of the medicines you take. How can you care for yourself at home? Sit or lie in positions that are most comfortable and reduce your pain. Try one of these positions when you lie down: Lie on your back with your knees bent and supported by pillows. Lie on the floor with your legs on the seat of a sofa or chair. Lie on your side with your knees and hips bent and a pillow between your legs. Lie on your stomach if it does not make pain worse. Do not sit up in bed, and avoid soft couches and twisted positions. Bed rest can help relieve pain at first, but it delays healing. Avoid bed rest after the first day of back pain. Change positions every 30 minutes. If you must sit for long periods of time, take breaks from sitting. Get up and walk around, or lie in a comfortable position. Try using a heating pad on a low or medium setting for 15 to 20 minutes every 2 or 3 hours. Try a warm shower in place of one session with the heating pad. You can also try an ice pack for 10 to 15 minutes every 2 to 3 hours. Put a thin cloth between the ice pack and your skin. Take pain medicines exactly as directed. If the doctor gave you a prescription medicine for pain, take it as prescribed. If you are not taking a prescription pain medicine, ask your doctor if you can take an brfr-pod-sizqlbi medicine. Take short walks several times a day. You can start with 5 to 10 minutes, 3 or 4 times a day, and work up to longer walks. Walk on level surfaces and avoid hills and stairs until your back is better. Return to work and other activities as soon as you can. Continued rest without activity is usually not good for your back. To prevent future back pain, do exercises to stretch and strengthen your back and stomach. Learn how to use good posture, safe lifting techniques, and proper body mechanics. When should you call for help? Call your doctor now or seek immediate medical care if: You have new or worsening numbness in your legs. You have new or worsening weakness in your legs. (This could make it hard to stand up.) You lose control of your bladder or bowels. Watch closely for changes in your health, and be sure to contact your doctor if: You have a fever, lose weight, or don't feel well. You do not get better as expected. Credits for Back Pain: Care Instructions Current as of: October 13, 2022 Author: Martha [employer] Staff Clinical Review Board All [employer] education is reviewed by a team that includes physicians, nurses, advanced practitioners, registered dieticians, and other healthcare professionals. e-Prescriptions Ibuprofen (Ibuprofen) 600 Mg Tab 1 TAB PO TID, #30 TAB Prov: YOLIE SANCHES MD 01/19/25 Acetaminophen (Acetaminophen Er) 650 Mg Tab 650 MG PO TIDPRN PRN, #15 TAB Prov: YOLIE SANCHES MD 01/19/25 Comments MDM: 69-year-old female presents with back pain. Differential diagnoses includes lumbago versus musculoskeletal spasm / strain versus sciatica. No back pain red flags on history or physical. Presentation not consistent with malignancy (lack of history of malignancy, lack of B symptoms), fracture (no trauma, no bony tenderness to palpation), cauda equina (no bowel or urinary incontinence/retention, no saddle anesthesia, no distal weakness), AAA, viscus perforation , pulmonary embolism, renal colic, pyelonephritis (afebrile, no CVAT, no urinary symptoms). Imaging shows no acute process, small renal pelvic stones. Unlikely source of patient's pain. Patient felt stable for discharge home to follow up with primary care provider for further evaluation Critical Care Note Critical Care Time?: No Stability Stability form required: No Heart Score Heart Score: Heart Score Response (Comments) Value History N/A 0 EKG N/A 0 Age N/A 0 Risk Factors N/A 0 Troponin N/A 0 Total 0 I personally scribed for YOLIE SANCHES MD ([email or web address]) on 01/19/25 at 02:38. Electronically submitted by Alethea Isaacs ([email or web address]). I personally scribed for YOLIE SANCHES MD ([email or web address]) on 01/19/25 at 02:39. Electronically submitted by Alethea Isaacs ([email or web address]). YOLIE SANCHES MD Jan 19, 2025 02:38
[2025-01-19 02:45] LABS: Urine Protein, UAD Negative (Negative)
[2025-01-19] MEDS ORDERED: ACETAMINOPHEN 325 MG TAB PO ONE (02:45)
[2025-01-19] MEDS ORDERED: KETOROLAC TROMETH 30 MG/ML 1ML VIAL IM ONE (02:45)
[2025-01-19 03:03] LABS: Hematocrit 39.6 % (36.0-46.0); Hemoglobin 13.3 g/dL (12.2-16.2); Mean Corpuscular Hemoglobin 31.6 pg (28.0-32.0); Mean Corpuscular Volume 94.2 fL (80.0-100.0); Nucleated Red Blood Cells % 0.1 %
[2025-01-19 03:14] LABS: Chloride 106 mmol/L (98-107); Potassium 4.2 mmol/L (3.5-5.1); Sodium 142 mmol/L (136-145)
[2025-01-19 03:15] LABS: Anion Gap 7 (5-15); Calcium 9.6 mg/dL (8.7-10.4); Carbon Dioxide 29 mmol/L (20-31)
[2025-01-19 03:21] LABS: BUN/Creatinine Ratio 15.3 (10.0-20.0); Blood Urea Nitrogen 15 mg/dL (9-23); Glucose 95 mg/dL (74-106)
--- NOTE | 2025-01-19 03:47 | DVH ---
Exam: CT CT AB PEL WO CON-NO ORAL OR IV History: Bilateral flank pain/back pain history of kidney stone Comparison Study: CT CT AB PEL WO CON-NO ORAL OR IV on DOS: 07/16/24, CT CT AB PEL WO CON-NO ORAL OR I V on DOS: 06/27/24, CT CT AB PEL WO CON-NO ORAL OR IV on DOS: 06/05/24, CT CT AB PEL WO CON-NO ORAL OR I V on DOS: 05/18/24, CT CHEST/AB/PL W CON- IV ONLY on DOS: 03/23/22 Technique: Multidetector spiral CT of the abdomen was performed from lung bases to pubic symphysis. I maging was performed without IV contrast. Axial, coronal and sagittal multiplanar reformats were obta ined from the axial data set by the technologist. Radiation Dose : 1. Abdomen/Pelvis: CTDIvol 5.48 mGy, DLP 316.01 mGy*cm. Findings: Evaluation of solid organs is limited due to lack of intravenous contrast use. Lung Bases: No acute or significant lung base finding. Normal heart size. No pleural or pericardial effusion. Liver: The liver is normal in size. No focal lesions. Gallbladder and Biliary Tree: Unremarkable Spleen: Unremarkable Pancreas: The pancreas is grossly normal in appearance. Adrenal Glands: Unremarkable Kidneys: Nonobstructive bilateral pelvocaliceal calculi measure up to approximately 6 mm in diameter. No evidence of hydronephrosis. Bladder: Grossly unremarkable for degree of distention. Bowel: The stomach is grossly normal in appearance. Retained colorectal stool. Small bowel and colon are otherwise normal in caliber and distribution. The appendix is not definitely identified, however, no secondary inflammatory changes to suggest acute appendicitis. Ascites: Absent Lymphadenopathy: No mesenteric, retroperitoneal or periportal lymphadenopathy. Abdominal Wall and Mesentery: Unremarkable. Vasculature: The visualized abdominal aorta is normal in size and caliber. Atherosclerotic vascular c alcifications. Evaluation of abdominal and pelvic vessels is limited due to lack of intravenous cont rast. Pelvic Organs: Unremarkable Musculoskeletal: No aggressive focal bony lesions, acute fractures or dislocation. Hardware status po st discectomy at the L3-L4 and L4-L5 levels. IMPRESSION: 1. Nonobstructive bilateral nephrolithiasis. 2. Retained colorectal stool. Radiation optimization: All CT scans at this facility use at least one of these dose optimization luly hniques: automated exposure control mA and/or kV adjustment per patient size (includes targeted exam s where dose is matched to clinical indication) or iterative reconstruction.
[2025-01-19] MEDS ORDERED: IBUP-1454 PO (04:10)
[2025-01-19] MEDS ORDERED: ACET650T12 PO (04:10)
== END 2025-01-19 07:52 | disposition home or self-care (01) ==
LOC: ER 01:11
DX: M54.9 Dorsalgia, unspecified (principal); Z87.442 Personal history of urinary calculi; I10 Essential (primary) hypertension; M19.90 Unspecified osteoarthritis, unspecified site; J45.909 Unspecified asthma, uncomplicated; E03.9 Hypothyroidism, unspecified; Z79.899 Other long term (current) drug therapy; Z90.89 Acquired absence of other organs; Z88.5 Allergy status to narcotic agent; R10.9 Unspecified abdominal pain
CPT/HCPCS: 36415; 74176; 80048; 81001; 85025